=== PATIENT | female | born 1940 | race Caucasian/White ===

== ENCOUNTER 2020-07-13 13:06 | Day surgery (SDC) | payer OTHER ==
[2020-07-09 12:22] LABS: Protime INR 1.2
[2020-07-09 12:29] LABS: Absolute Lymphocytes (CBC) 1.3 K/uL (0.7-4.9); Basophils % 0.3 % (0-1.3); Hematocrit 40.6 % (36.0-45.0); Lymphocytes % 21.9 % (15.3-44.8); MPV 8.8 fL (7.6-11.3)
[2020-07-10 09:37] LABS: Urine Appearance CLOUDY (Clear); Urine Bilirubin NEGATIVE (Negataive); Urine Blood NEGATIVE (Negative); Urine Color YELLOW (Yellow); Urine Glucose NEGATIVE (Negative); Urine Protein NEGATIVE (Negative); Urine Specific Gravity <=1.005 (1.005-1.030); Urine Urobilinogen 0.2 mg/dL (0.2-1.0)
[2020-07-10 10:13] LABS: Urine Microscopic Reflex ORDER UMIC
[2020-07-10 10:39] LABS: Urine Bacteria >50 /HPF (<20); Urine RBC NONE SEEN /HPF (NONE SEEN)
[2020-07-13] MEDS ORDERED: SCOPOLAMINE HYDROBROMIDE PATCH TD ONE (13:31)
[2020-07-13] MEDS ORDERED: Ringers Lactate 1,000 ML IV ONE ×2 (13:31→15:52)
[2020-07-13] MEDS ORDERED: NA CHLORIDE 0.9% 1,000 ML ONE (13:33)
[2020-07-13] MEDS ORDERED: NA CHLORIDE 0.9% 100 ML IV ONE (13:33)
[2020-07-13] MEDS ORDERED: ROCURONIUM 50 MG/5 ML VIAL IV ONE (13:42)
[2020-07-13] MEDS ORDERED: propofoL 200 MG/20 ML VIAL IV ONE (13:42)
[2020-07-13] MEDS ORDERED: ONDANSETRON 4 MG/2 ML VIAL ONE (13:42)
[2020-07-13] MEDS ORDERED: FENTANYL CITR 100 MCG/2 ML ONE ×2 (13:42→16:28)
[2020-07-13] MEDS ORDERED: LIDOCAINE 2% MPF 5 ML VIAL ONE (13:42)
[2020-07-13] MEDS: CEFAZOLIN/SWI 2gm 2 GM/20 ML SYR ONE ×2 (13:56→13:58)
[2020-07-13] MEDS ORDERED: CEFAZOLIN SODIUM 1 GM/VIAL ONE (13:57)
[2020-07-13] MEDS: VASOPRESSIN 20 UNIT/ML VIAL ONE ×2 (13:59→14:45)
[2020-07-13] MEDS ORDERED: Levofloxacin500mg IV 500 MG/100 ML BAG IV ONE (14:02)
[2020-07-13] MEDS ORDERED: GLYCOPYRROLATE 0.2 MG/ML SYR ONE ×2 (16:39)
[2020-07-13] MEDS ORDERED: ACETAMINOPHEN 500 MG TAB PO PRN (16:41)
[2020-07-13] MEDS ORDERED: NEOSTIGMINE 1 MG/ML -5 ML ONE (16:41)
[2020-07-13] MEDS ORDERED: PROMETHAZINE 25 MG TABLET PO PRN (16:41)
[2020-07-13] MEDS ORDERED: MORPHINE 4 MG/ML SYR IV PRN (17:47)
[2020-07-13] MEDS: DRONEDARONE 400 MG TAB PO SCH (19:41)
[2020-07-14] MEDS: Ringers Lactate 1,000 ML IV SCH ×2 (01:00→08:23)
[2020-07-14 05:07] LABS: Potassium 3.9 mmol/L (3.5-5.1)
[2020-07-14] MEDS: DRONEDARONE 400 MG TAB PO SCH (08:21)
[2020-07-14] MEDS ORDERED: HEPARIN 5000 UNIT/ML 1 ML VIAL SQ SCH (09:00)
[2020-07-14] MEDS ORDERED: levoFLOXacin 500 MG TAB PO ONE (13:35)
[2020-07-14 14:57] VITALS: BP 122/56; TEMP 96.8; O2SAT 96
--- NOTE | 2020-07-24 23:55 | OP ---
Date of Procedure: 07/13/2020 Surgeon: Diane Goss MD Lab Rn: Yasmeen Mitchell and Harika Quintero. 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 Postoperative Diagnoses: Stage III anterior apical prolapse (incomplete uterovaginal prolapse, poste rior wall and perineal body defect), asymptomatic bacteriuria with extended spectrum beta-lactamase E scherichia coli. Stress urinary incontinence was not addressed. Procedures Performed: 1.[place] partial colpocleisis. 2.Perineal body repair. Anesthesia: General endotracheal. Specimens: None. Complications: None. Drains: None. Estimated Blood Loss: 50. Urine Output: 200. Condition: Stable. Indications: The patient is an 79-year-old with severe vaginal prolapse leading to bulge symptoms, i ncomplete bladder emptying, and recurrent urinary tract infections due to above. She was evaluated i n the office and counseled about the use of a pessary, surgical options including vaginal closure pro cedure, reconstruction, using a biologic graft or [place] tissue repair. The preoperative assessment in the office was indicative of mostly an anterior apical prolapse without a significant posterior wa ll prolapse, so we discussed about the feasibility of colpocleisis being low. However, if when patie nt is under anesthesia and exam was performed and she was found to have a significant posterior defec t that I could work with in order to perform a colpocleisis that I would, the patient had no future p lans of sexual activity or vaginal intercourse. She was consented for an anterior apical support pro cedure with a colpopexy, anterior repair with or without a biologic graft or partial flow colpocleisi s, perineorrhaphy, mid urethral sling and cystoscopy. At the preop urinary evaluation for an infecti on, she was found to have bacteriuria greater than 100,000 with ESBL E coli. However, the patient wa s asymptomatic. Her frequency and urgency were unchanged. Her pelvic pressure was also unchanged fr om her baseline. Considering this to be asymptomatic bacteriuria in a patient with incomplete emptyi ng, persistent bacteriuria was diagnosed and she was started on Levaquin. Discussed about the altern atives of cancelling the procedure for future date versus proceeding with the procedure and avoiding any instrumentation of the bladder, which included avoidance of a mid urethral sling and cystoscopy. If a colpopexy was performed unless it is imperative, would not perform a cysto, although this is ou tside of regular guidelines due to the patient's difficulty to empty her bladder and get rid of the b acteriuria. All the benefits and risks were explained to the patient in detail as well as her son, abby nd she fully understood all the implications of this and alternatives. She wanted to proceed with th e procedure and was amenable to having a staged procedure where the sling could be done later, so she was consented for prolapse repair without sling at this time and taken back to the OR. Levaquin was given. BMP was checked and plan was made to monitor her creatinine level and renal func tion in 3 days and [address] Hamilton, that is her primary care provider. She is also on Eliquis, the anticoagulant which she had stopped. So, this is a high-risk patient and has already been on the pathway for the surgery, so went ahead and proceeded with the procedure. Description Of Procedure: After informed consent was verified, she was taken back to the OR, placed in a supine fashion on the operating table. General anesthesia was given. She was placed in a dorsa l lithotomy position. Pelvic exam was performed. There was a distended posterior wall defect. Her POP-Q -1, +3, -1, 5, moderate, 7, 0, 0, and -2 after relaxation under anesthesia. So, this was POP-Q feasible where it was feasible to perform a colpocleisis, although there was asymmetrically larger a nterior defect. I tried to reach the son to allow him to understand the procedure we were proceeding with. However, it was unavailable when proceeded with the procedure. Lower abdomen, vulva, vagina, and perineum were prepped and draped in a sterile fashion. Del Rio was placed carefully without any u rinary contamination to drain the bladder during the procedure. Allis clamps placed on the cervix. Anterior vaginal wall was measured and marked for the colpocleisis from the anterior compartment in a trapezoid fashion. Once the posterior wall was also marked for the areas of vaginal epithelial exci netta, then injected dilute vasopressin and this area on the anterior wall first started at the distal anterior wall and vaginal epithelium was dissected away from the subepithelial connective tissue alessandro ping it as then as possible, leaving as much connective tissue or areolar tissue as possible. There was an anterior enterocele at the apex between the cervix and the bladder. This was reduced with the help of a 2-0 Vicryl suture in a pursestring fashion to shorten the anterior wall and to reduce the anterior enterocele. Once this was done, then the posterior vaginal wall was also injected with dilu te vasopressin and the trapezoid incision made with a scalpel and the vaginal epithelium excised from distal to proximal. Once this was all done, then I was left with the sidewall epithelium, which was left alone in order to create side channels. This was started at the apical transverse epithelial e dges bringing them together, creating a transverse channel with a 2-0 PDS in a continuous running fas hion Invaginating the epithelium, creating a channel. This closure was continued all the way on the right side to the distal end and once this was nicely done, then went onto the opposite side and cont inued to perform the same procedure all the way to the left distal end. Once this was created, then 2-0 Vicryl was used to shorten the anterior vaginal wall with imbricating sutures vertically, 3 rows of sutures were placed, then posteriorly 3 sutures were placed just interrupted sutures to bring it t ogether in a vertical fashion. Then, the anterior and posterior grubbs were closed together with 2-0 Vicryl sutures attached to each other all the way to the distal end. The distal transverse incision was closed with the help of 2-0 Vicryl interrupted sutures x4. Once this was done, there was good re duction, good side channel. The hemostat was passed to make sure that they were patent. I went ahead and left about 2 cm of the distal posterior wall. The perineal area was also injected w ith dilute vasopressin at the distal posterior wall. Then, a vertical incision was made through the perineal body going up and joining the incision of the colpocleisis. Then, epithelium and subepithel ium was dissected away from the underlying connective tissue and scar tissue. The lateral aspects of the perineal body, vestibule were all well dissected and exposed. Then, pliw-ay-uaia sutures were p laced from 1 levator ani to the other, that was the most proximal stitch on the perineum and then the distal sutures were placed, simple sutures with 2-0 Vicryl to bring the deep transverse perineum tog ether and then the remnants of the external sphincter. Once all the sutures were placed, there was a n excellent lift on the perineal body without tightening the opening, without creating extra tension on the levators. The vaginal epithelial incision and the perineal incision were closed with a 3-0 Vicryl in a continuo us running subcutaneous and subcuticular fashion and tied inside the vestibule. Rectal exam was perf ormed. No evidence of any sutures through the rectum. No evidence of any other bladder related comp lications. So, the catheter was left in place. The patient was recovered from anesthesia. Instrume nt, needle, and sponge counts were done and were correct at the end of the case. The patient was [place] en to the PACU in a stable condition. Her EBL was less than 50. Her hemodynamic status and cardiac status were stable during the entire procedure without any irregularities. Plan was to just remove h er catheter in the morning and give her a trial of voiding and allow her to leave without a catheter. Leave it on her Levaquin for the entire time of the prescription and then retest her and bring her back in 2 weeks to do a mid urethral sling. She was well counseled that she would have increased tangela kage after the reduction of her prolapse and sons was debriefed on her entire findings and the proced ures performed and the future plan. TRAVIS/KAT Voice ID: [id number] Report ID: [id number]
== END 2020-07-14 14:45 | disposition home or self-care (01) ==
LOC: OR 13:06 → 2ND-WC 16:59 → OR 07-14 14:45
PROVIDERS: ATTEND Obstetrics & Gynecology
PROC: 0HQ9XZZ Repair Perineum Skin, External Approach (ICD-10-PCS; 2020-07-13)
PROC: 0ULG7ZZ Occlusion of Vagina, Via Natural or Artificial Opening (ICD-10-PCS; principal; 2020-07-13 12:30)
DX: N81.2 Incomplete uterovaginal prolapse (principal); R35.0 Frequency of micturition; K40.30 Unilateral inguinal hernia, with obstruction, without gangrene, not specified as recurrent; K59.00 Constipation, unspecified; I48.91 Unspecified atrial fibrillation; N95.2 Postmenopausal atrophic vaginitis; N39.3 Stress incontinence (female) (male); R82.71 Bacteriuria; Z20.822 Contact with and (suspected) exposure to COVID-19
CPT/HCPCS: 57120; 56810; 87088; 85025; 87086; 80048 ×2; 36415 ×2; 86900; 86850; 85610; 86901; 85730; 87077; 87186; 94010; U0003; J2704; J3010 ×2; J2710; J0690; J7120 ×4; J7030; J2405; 81003; 81015; J1644

== ENCOUNTER 2020-07-27 07:28 | Day surgery (SDC) | payer OTHER ==
[2020-07-27] MEDS ORDERED: propofoL 200 MG/20 ML VIAL IV ONE (07:53)
[2020-07-27] MEDS ORDERED: FENTANYL CITR 100 MCG/2 ML ONE (07:53)
[2020-07-27] MEDS ORDERED: LIDOCAINE 1% MPF 5 ML VIAL ONE (07:54)
[2020-07-27] MEDS ORDERED: NA CHLORIDE 0.9% 50 ML ONE (08:03)
[2020-07-27] MEDS ORDERED: CEFAZOLIN/SWI 1gm 1 GM/10 ML SYR ONE ×2 (08:04→08:10)
[2020-07-27] MEDS ORDERED: VASOPRESSIN 20 UNIT/ML VIAL ONE (08:04)
[2020-07-27] MEDS ORDERED: Ringers Lactate 1,000 ML IV ONE ×2 (08:10→10:58)
[2020-07-27] MEDS ORDERED: EPHEDRINE SULF 50 MG/ML VIAL ONE (09:20)
[2020-07-27 09:21] LABS: Urine Appearance CLEAR (Clear); Urine Bilirubin NEGATIVE (Negataive); Urine Blood 1+ (Negative); Urine Color YELLOW (Yellow); Urine Glucose NEGATIVE (Negative); Urine Protein NEGATIVE (Negative); Urine Specific Gravity 1.015 (1.005-1.030); Urine Urobilinogen 0.2 mg/dL (0.2-1.0); Urine pH 5.5 (5.0-7.0)
[2020-07-27] MEDS ORDERED: dexAMETHasone 10 MG/ML VIAL ONE (09:28)
[2020-07-27] MEDS ORDERED: Levofloxacin 250mg IV 250 MG/50 ML BAG IV ONE (09:30)
[2020-07-27] MEDS ORDERED: ONDANSETRON 4 MG/2 ML VIAL ONE (09:30)
[2020-07-27 09:34] LABS: Urine Microscopic Reflex ORDER UMIC
[2020-07-27 09:35] LABS: Urine Bacteria >50 /HPF (<20)
[2020-07-27] MEDS ORDERED: MORPHINE 10 MG/ML VIAL ONE (10:10)
[2020-07-27 13:57] VITALS: BP 126/55; TEMP 98; O2SAT 95
--- NOTE | 2020-07-27 17:41 | EKG ---
Test Date: 2020-07-27 Test Time: 07:18:23 Art Framing Manager: KEVIN MEASUREMENT RESULTS: Intervals: Rate: 74 MA: 186 QRSD: 78 QT: 416 QTc: 461 [place]: P: 73 MA: 186 QRS: 62 T: 40 INTERPRETIVE STATEMENTS: Normal sinus rhythm Possible Left atrial enlargement Borderline ECG Compared to ECG 01/22/2016 18:59:03 Sinus tachycardia no longer present Electronically Signed On 07-27-20 17:40:06 CDT by Juve Dunham
--- NOTE | 2020-07-27 21:18 | OP ---
Date of Procedure: 07/27/2020 Surgeon: Diane Goss MD Clinical Care Manager: Harika Quintero. Preoperative Diagnosis: Stress urinary incontinence. Postoperative Diagnosis: Stress urinary incontinence. Procedure Performed: Mid urethral sling (TVT-O) and cystoscopy. Anesthesia: General with LMA. Specimens: No specimens. Drains: [place] catheter. Estimated Blood Loss: Less than 50. Complications: No complications. Condition: Stable. Findings: Vaginal closure done and the patient doing well. Her urinary infection has resolved and s he has been having significant stress incontinence since her surgery, so sling was to be placed. She was consented. Her urine sent off from the hospital to ensure that it is negative. After the patient has completed her antibiotics postoperatively from the last surgery and she is on j ust prophylactic antibiotic at this time. She was consented in the preop area. Again, her son was p resent. After discussing the procedure and the risks and benefits. She was consented and brought to the OR. She was placed in supine fashion on the operating table. General anesthesia was given thro ugh the laryngeal mask. The patient was placed in a dorsal lithotomy position. Valva, vagina and pe rineum prepped and draped in a sterile fashion. Del Rio placed to drain the bladder and carefully drai keily into sterile cup without any spillage. Bre clamp was placed to occlude the [place] and it was re tracted superiorly. The mid urethral area was picked up with 2 Allis clamps. The colpocleisis distal incision or closure was less than 0.5 cm from the distal margin of the incision to be made. Dilute vasopressin was injected 20 cc in the midline as well on the sides. Then, 1 cm incision made in the mid urethral area with a 15 blade. Skin, vaginal epithelium, subepithelial tissues were incis ed to the connective tissue. Once the connective tissue was incised, the scissors was placed underne ath at a 45-degree angle to the horizontal and vertical planes towards the ipsilateral shoulder, hugg ing the inferior pubic ramus. Obturators space was entered and opened up. The scissors were pulled out the extending the tract. Similar dissection was performed on the opposite side. There was sligh t vaginal epithelial tearing from the Allis clamp, but this was repaired and the track was created wi thout any problems. There was some bleeding from the right side obturators space then on the left si de, but once the occluder was placed at the inferior ramus, there was no further bleeding there. The kit was opened. The wing guide was placed through the right side into the obturator space. Carlos A w as passed and one the perforate the obturator membrane, the guide was removed. The spike was advance d along with the plastic sheath. The plastic sheath was grasped with Bre. Carlos A was removed. Mes h and the sheaths were pulled out through the left groin incision and held with a Bre and dilator c ut. On the opposite side, similar procedure was done. Once all these were placed without any proble ms, then, the plastic sheaths were used to adjust the tensioning. There was a Metzenbaum scissor venkat t was placed underneath the mid urethral area to maintain a proper tensioning. Once this was done to my satisfaction, the sheaths were pulled out without any displacement of the mesh. I made sure that there was no plowing effect and it was just sling in there without too much tension. Then, the mesh was irrigated with Ancef and the irrigating solution and closure was done with 0 Vicryl in a continu ous running locked fashion. The suture was tied and this was cut. The [place] was removed carefully w ithout any spillage and the 17-[place] sheath, 30-degree lens normal saline was used for cystoscopy. There was excellent jets of urine from both ureteric orifices. No evidence of any trauma to the blad jessica. Looking on the both lateral sides, there was no evidence of any foreign body or perforation. T he bladder was then drained. Scope was removed. Del Rio was replaced. The incisions in the groins we re closed with Dermabond. Instrument, needle, and sponge counts were correct at the end of the case. The patient tolerated the procedure well. She had no arrhythmia and no blood pressure issues durin g the case. She was taken to the PACU in stable condition. All instrument, needle, sponge counts co rrect. She will have a voiding trial today. Plan is to discharge her without a catheter if she pass es her voiding trial. TRAVIS/KAT Voice ID: [id number] Report ID: [id number]
== END 2020-07-27 13:10 | disposition home or self-care (01) ==
LOC: OR 07:28
PROVIDERS: ATTEND Obstetrics & Gynecology
PROC: 0TSD0ZZ Reposition Urethra, Open Approach (ICD-10-PCS; principal; 2020-07-27 08:30)
DX: N39.3 Stress incontinence (female) (male) (principal); Z20.822 Contact with and (suspected) exposure to COVID-19
CPT/HCPCS: 93005; 87088 ×2; 87086 ×2; 57288; U0003; J2704; J3010; J1100; J0690 ×2; J7120 ×2; J2405; 81003; 81015

== ENCOUNTER 2020-09-29 08:37 | Day surgery (SDC) | payer OTHER ==
[2020-09-28 15:08] LABS: Absolute Lymphocytes (CBC) 1.6 K/uL (0.7-4.9); Basophils % 0.7 % (0-1.3); Hematocrit 38.7 % (36.0-45.0); MPV 8.9 fL (7.6-11.3); RBC Red Blood Cell Count 4.38 M/uL (3.86-4.86)
--- NOTE | 2020-09-28 15:24 | RAD REPORT ---
EXAM DESCRIPTION: RAD - Chest Pa And Lat (2 Views) - 09/28/2020 3:05 pm CLINICAL HISTORY: preop COMPARISON: Chest Single View dated 01/22/2016; CHEST SINGLE VIEW dated 09/20/2013 FINDINGS: No evidence of edema or pneumonia. The heart size is within normal limits.No acute osseous abnormality. No significant pleural effusions or pneumothorax. Left subclavian approach defibrillato r. Emphysematous changes per atherosclerosis. IMPRESSION: No acute cardiopulmonary disease.
[2020-09-28 15:29] LABS: Potassium 4.1 mmol/L (3.5-5.1)
[2020-09-29] MEDS ORDERED: CEFAZOLIN/SWI 1gm 1 GM/10 ML SYR ONE (09:18)
[2020-09-29] MEDS ORDERED: Ringers Lactate 1,000 ML IV ONE (09:18)
[2020-09-29] MEDS ORDERED: CELECOXIB 100 MG CAPSULE ONE (10:43)
[2020-09-29] MEDS ORDERED: ACETAMINOPHEN 500 MG TAB ONE (10:43)
[2020-09-29] MEDS ORDERED: FENTANYL CITR 100 MCG/2 ML ONE ×2 (11:55→14:12)
[2020-09-29] MEDS ORDERED: propofoL 200 MG/20 ML VIAL IV ONE (11:55)
[2020-09-29] MEDS ORDERED: ROCURONIUM 50 MG/5 ML VIAL IV ONE (11:56)
[2020-09-29] MEDS ORDERED: LIDOCAINE 2% MPF 5 ML VIAL ONE (11:56)
[2020-09-29] MEDS ORDERED: ONDANSETRON 4 MG/2 ML VIAL ONE (11:56)
[2020-09-29] MEDS ORDERED: dexAMETHasone 10 MG/ML VIAL ONE (11:56)
[2020-09-29] MEDS ORDERED: NEOSTIGMINE 1 MG/ML -5 ML ONE (13:07)
[2020-09-29] MEDS ORDERED: GLYCOPYRROLATE 0.2 MG/ML SYR ONE (13:07)
[2020-09-29] MEDS ORDERED: KETOROLAC 30 MG/ML INJ ONE (13:16)
--- NOTE | 2020-09-29 13:30 | P.BOP ---
Preoperative diagnosis: Left inguinal hernia Postoperative diagnosis: same Primary procedure: Open repair of left inguinal hernia with mesh Estimated blood loss: <10cc Specimen: none Findings: LIH Anesthesia: General Implants: mesh plug and sheet. Transferred to: Recovery Room Condition: Good
[2020-09-29 15:02] VITALS: BP 155/62; TEMP 97.5; O2SAT 95
[2020-09-29] MEDS ORDERED: CODEINE 30MG/APAP 300MG TAB ONE (15:16)
--- NOTE | 2020-09-29 15:31 | DS ---
Diagnosis: Left inguinal hernia. Procedure: Open repair of left inguinal hernia with mesh. Disposition: Home. Activity: As tolerated. No heavy lifting. Plan: Follow up in my office in 1 week. Call for appointment at [phone]. Keep area dry for 48 shayla rs, then may shower. Cold compress to the inguinal region. GLORIA/KAT Voice ID: [id number] Report ID: [id number]
--- NOTE | 2020-09-29 15:31 | OP ---
Date of Procedure: 09/29/2020 Surgeon: Abrahan Carrillo MD Diagnosis: Tender left inguinal hernia. Procedure: Open repair of tender left inguinal hernia with mesh. Specimen: None. Findings: Left inguinal hernia. Anesthesia: General plus local. Implant: Mesh plug and sheath. Indication: This the case of a female, who comes to us with a left inguinal hernia giving pain and d iscomfort. In the past, she was able to reduce it more often and right now, sometimes getting incarc erated and so she wants that repaired. The benefits, alternatives, and risks of laparoscopic, possib le open repair of left inguinal hernia were fully explained, which include, but not limited to infect ion, bleeding, damage to adjacent structures, anesthesia complication, recurrence, WI, and even . She also understands this may not relieve any symptoms. She might need more than one surgical int ervention. She understood, signed a consent. Procedure In Detail: The patient was brought to the operating room, placed in supine position. Anes thesia was done without complication. Abdominal area was prepped and draped in usual sterile fashion . We tried laparoscopic first by making an incision in the infraumbilical region. The anterior rect us sheath was opened in direction of its fiber. Then, we put a trocar through it, but it does not fl ow the way we want to with the camera in. The area is not open in the way we want to and we proceede d to abandon that place because the area does not provide the proper expansion. We removed the troca r from that area, closed the area with #1 Vicryl, and approximated the skin. We made an incision in the left inguinal region. Incision was carried down to Sherrill fascia and then through the external o blique aponeurosis, opened in the direction of its fibers to connect the superficial inguinal ring. The ilioinguinal nerve and iliohypogastric nerve were protected behind the external oblique aponeuros is. We found the hernia sac. It was carefully opened, content reduced, suture ligated twice with a Prolene. After that, I placed a mesh plug in the deep inguinal ring securing that with VersaTack. T he mesh plug was placed in the floor of the canal securing that to the pubic tubercle, shelving edge of inguinal ligament and transversalis fascia. The area was irrigated. It looked nice and flat. At that moment, I proceeded to bring the ilioinguinal nerve and iliohypogastric nerve back into the ing uinal canal, reconstructed the superficial inguinal ring and closed the external oblique aponeurosis making sure the nerves were not included. The area was irrigated. Sherrill fascia was closed with 3-0 chromic and skin with jose. Sponge count and instrument counts correct. The patient tolerated t he procedure well. The patient was sent to recovery in stable condition. GLORIA/KAT Voice ID: [id number] Report ID: [id number]
== END 2020-09-29 15:32 | disposition home or self-care (01) ==
LOC: OR 08:37
PROVIDERS: ATTEND Surgery
PROC: 0YU60JZ Supplement Left Inguinal Region with Synthetic Substitute, Open Approach (ICD-10-PCS; principal; 2020-09-29 10:15)
DX: K40.90 Unilateral inguinal hernia, without obstruction or gangrene, not specified as recurrent (principal); I48.91 Unspecified atrial fibrillation
CPT/HCPCS: 49505; 85025; 80048; 36415; 88302; 71046; J2704; J3010 ×2; J1100; J2710; J0690; J7120; J2405

== ENCOUNTER 2020-11-18 14:50 | Emergency (ER) | payer OTHER ==
[2020-11-18 16:05] LABS: Protime INR 1.34
--- NOTE | 2020-11-18 16:06 | RAD REPORT ---
EXAM DESCRIPTION: RAD - Chest Single View - 11/18/2020 3:57 pm CLINICAL HISTORY: CHEST PAIN Chest pain. COMPARISON: Chest Pa And Lat (2 Views) dated 09/28/2020; Chest Single View dated 01/22/2016; CHEST SIN GLE VIEW dated 09/20/2013 FINDINGS: Portable technique limits examination quality. The lungs are grossly clear. The heart is normal in size. Single lead pacer/ defibrillator device is present. IMPRESSION: No acute intrathoracic process suspected.
[2020-11-18 16:07] LABS: Absolute Lymphocytes (CBC) 1.9 K/uL (0.7-4.9); Basophils % 0.5 % (0-1.3); Hematocrit 40.9 % (36.0-45.0); Lymphocytes % 21.7 % (15.3-44.8); MPV 8.3 fL (7.6-11.3); RBC Red Blood Cell Count 4.76 M/uL (3.86-4.86)
[2020-11-18 16:28] LABS: ALT/SGPT 29 U/L (12-78); AST/SGOT 23 U/L (15-37); Albumin 3.7 g/dL (3.4-5.0); Alkaline Phosphatase 88 U/L (45-117); BUN Blood Urea Nitrogen 13 mg/dL (7-18); Bicarbonate 23 mmol/L (21-32); Bilirubin Direct 0.2 mg/dL (0-0.2); Bilirubin Total 0.6 mg/dL (0.2-1.0); Glucose Level 111 mg/dL (74-106); NT PRO-BNP 588 pg/mL (<450); Potassium 3.4 mmol/L (3.5-5.1); Protein, Total 7.4 g/dL (6.4-8.2); Sodium Level 131 mmol/L (136-145); Troponin (Emerg Dept Use Only) < 0.02 ng/mL (0.0-0.045)
[2020-11-18] MEDS ORDERED: ONDANSETRON 4 MG/2 ML VIAL ONE (16:54)
[2020-11-18] MEDS ORDERED: ASPIRIN 81 MG CHEWABLE TABLET ONE (16:54)
[2020-11-18] MEDS ORDERED: NA CHLORIDE 0.9% 500 ML ONE (16:54)
[2020-11-18 18:42] LABS: Urine Blood Negative (Negative); Urine Glucose Negative (Negative); Urine Protein Negative (Negative); Urine Specific Gravity 1.015 (1.005-1.030); Urine pH 7.5 (5.0-7.0)
--- NOTE | 2020-11-18 18:54 | ER ---
Nurse's Notes [facility] [place] Name: Nereida Bhandari Age: 80 yrs Sex: Female : 1940 Arrival Date: 11/18/2020 Time: 14:51 Bed 14 Private MD: Diagnosis: Vomiting;Diarrhea, unspecified Presentation: 11/18 15:29 Chief complaint: Patient states: Chest pain, nausea, vomiting, diarrhea starting at kg 0900. Coronavirus screen: Vaccine status: Patient reports receiving the 2nd dose of the covid vaccine. Date July 20, 2020 Moderna Patient reports receiving the 1st dose of the Covid vaccine. Date June 24, 2020 Moderna diarrhea, nausea, vomiting. Client presents with at least one sign or symptom that may indicate coronavirus-19. Standard/surgical mask placed on the client. Provider contacted for isolation considerations. Ebola Screen: Patient negative for fever greater than or equal to 101.5 degrees Fahrenheit, and additional compatible Ebola Virus Disease symptoms Patient denies exposure to infectious person. Patient denies travel to an Ebola-affected area in the 21 days before illness onset. Initial Sepsis Screen: Does the patient meet any 2 criteria? No. Patient's initial sepsis screen is negative. Does the patient have a suspected source of infection? No. Patient's initial sepsis screen is negative. Risk Assessment: Do you want to hurt yourself or someone else? Patient reports no desire to harm self or others. Onset of symptoms was November 18, 2020 at 09:00. 15:29 Method Of Arrival: Wheelchair kg 15:29 Acuity: JESSE 3 kg Triage Assessment: 19:45 Pain: Denies pain. bs2 21:57 General: Appears in no apparent distress. comfortable, slender, Behavior is calm, bs2 cooperative, appropriate for age. Historical: - Allergies: 15:32 No Known Allergies; kg - Home Meds: 15:32 Multaq 400 mg oral tab 1 tab 2 times per day [Active]; Eliquis 5 mg oral tab 1 tab 2 kg times per day [Active]; Myrbetriq 50 mg oral Tb24 1 tab once daily [Active]; acetaminophen 325 mg Oral tab 1 tab every 4-6 hours [Active]; Vitamin C 500 mg Oral chew 500 mg daily [Active]; artificial tears(hypromellose) 1 % Opht drop daily [Active]; - PMHx: 15:32 Atrial fibrillation; kg - PSHx: 15:32 Hernia Repair; kg - Immunization history:: Adult Immunizations up to date, Client reports receiving the 2nd dose of the Covid vaccine, Date received: July 20, 2020 Client reports receiving the 1st dose of the Covid vaccine, June 24, 2020. - Social history:: Smoking status: Patient denies any tobacco usage or history of. Screenin:56 Abuse screen: Denies threats or abuse. Denies injuries from another. Nutritional ch5 screening: No deficits noted. Tuberculosis screening: No symptoms or risk factors identified. Fall Risk None identified. Assessment: 15:56 Reassessment: Complaint of CP that gradually got worse. Pain is 8-10.. Pain: Pain ch5 radiates to chest. Pain: Pain currently is 118 out of 10 on a pain scale. Pain began gradually. Cardiovascular: Reports chest pain. Vital Signs: 15:29 BP 130 / 75; Pulse 81; Resp 21; Temp 98.0(O); Pulse Ox 100% on R/A; Weight 54.43 kg; kg Height 5 ft. 7 in. (170.18 cm); Pain 8/10; 16:15 BP 160 / 76; Pulse 28; Resp 26; Pulse Ox 100% on R/A; Pain 8/10; ch5 21:40 BP 160 / 81 LA Sitting (auto/reg); Pulse 90 MON; Resp 18 S; Temp 98.6(O); Pulse Ox 97% bs2 on R/A; Pain 0/10; 15:29 Body Mass Index 18.79 (54.43 kg, 170.18 cm) kg ED Course: 14:51 Patient arrived in ED. rg4 15:32 Triage completed. kg 15:33 Bolivar Jeffers PA is PHCP. jmm 15:33 Stefan Florez MD is Attending Physician. jmm 15:39 Garth Fermin, RAYMUNDO is Primary Nurse. ch5 15:53 Basic Metabolic Panel Sent. ch5 15:56 No provider procedures requiring assistance completed. Inserted saline lock: 20 gauge ch5 in right forearm, using aseptic technique. Patient maintains SpO2 saturation greater than 95% on room air. 15:56 Patient has correct armband on for positive identification. Placed in gown. Bed in low ch5 position. Side rails up X2. site monitor on. 15:57 XRAY Chest (1 view) In Process Unspecified. EDMS 18:53 Jesse Smalls DO is Hospitalizing Provider. jmm 19:45 Arm band placed on right wrist. bs2 21:45 IV discontinued, intact, bleeding controlled, No redness/swelling at site. Pressure bs2 dressing applied. Administered Medications: 16:34 Drug: Aspirin Chewable Tablet 324 mg Route: PO; ch5 19:49 Follow up: Response: No adverse reaction bs2 16:35 Drug: NS 0.9% 500 ml Route: IV; Rate: bolus; Site: right antecubital; ch5 19:48 Follow up: IV Status: Completed infusion bs2 19:49 Follow up: IV Status: Completed infusion bs2 16:35 Drug: Zofran (Ondansetron) 4 mg Route: IVP; Site: right antecubital; ch5 19:49 Follow up: Response: No adverse reaction bs2 Outcome: 18:54 Decision to Hospitalize by Provider. jmm 21:04 Discharge ordered by . [facility] 21:59 Discharged to home ambulatory, with family. bs2 21:59 Condition: improved 21:59 Discharge instructions given to patient, family, Instructed on discharge instructions, follow up and referral plans. Demonstrated understanding of instructions, follow-up care, medications, Prescriptions given X 1. 22:00 Patient left the ED. bs2 Signatures: Dispatcher [employer] EDMS Bolivar Jeffers PA PA jmm Garcia, Rubi rg4 Fatoumata Bejarano, Geovanna Oglesby RN, kg, RN RN bs2 Garth Fermin, RAYMUNDO RN ch5
--- NOTE | 2020-11-18 18:55 | EDPHYS ---
Physician Documentation [facility] Name: Nereida Bhandari Age: 80 yrs Sex: Female : 1940 Arrival Date: 11/18/2020 Time: 14:51 Bed 14 Private MD: NICOLE Physician Stefan Florez HPI: 11/18 15:33 This 80 yrs old Female presents to ER via Wheelchair with complaints of Chest jmm Pain. 15:33 The patient presents to the emergency department with nausea, vomiting. Onset: The jmm symptoms/episode began/occurred today. Possible causes: unknown. The symptoms are aggravated by nothing. The symptoms are alleviated by nothing. Associated signs and symptoms: Pertinent positives: chest pain. The patient has not experienced similar symptoms in the past. Historical: - Allergies: 15:32 No Known Allergies; kg - Home Meds: 15:32 Multaq 400 mg oral tab 1 tab 2 times per day [Active]; Eliquis 5 mg oral tab 1 tab 2 kg times per day [Active]; Myrbetriq 50 mg oral Tb24 1 tab once daily [Active]; acetaminophen 325 mg Oral tab 1 tab every 4-6 hours [Active]; Vitamin C 500 mg Oral chew 500 mg daily [Active]; artificial tears(hypromellose) 1 % Opht drop daily [Active]; - PMHx: 15:32 Atrial fibrillation; kg - PSHx: 15:32 Hernia Repair; kg - Immunization history:: Adult Immunizations up to date, Client reports receiving the 2nd dose of the Covid vaccine, Date received: July 20, 2020 [facility] Client reports receiving the 1st dose of the Covid vaccine, June 24, 2020 [facility]. - Social history:: Smoking status: Patient denies any tobacco usage or history of. ROS: 18:51 Constitutional: Negative for fever, chills, and weight loss, Respiratory: Negative for jmm shortness of breath, cough, wheezing, and pleuritic chest pain. 18:51 Cardiovascular: Positive for chest pain. 18:51 Abdomen/GI: Positive for abdominal pain, vomiting, diarrhea. 18:51 All other systems are negative. Exam: 18:51 Constitutional: This is a well developed, well nourished patient who is awake, alert, jmm and in no acute distress. Head/Face: atraumatic. Eyes: EOMI, no conjunctival erythema appreciated ENT: Moist Mucus Membranes Neck: Trachea midline, Supple Chest/axilla: Normal chest wall appearance and motion. Cardiovascular: Regular rate and rhythm. No edema appreciated Respiratory: Normal respirations, no respiratory distress appreciated Abdomen/GI: Non distended, soft Back: Normal ROM Skin: General appearance color normal MS/ Extremity: Moves all extremities, no obvious deformities appreciated, no edema noted to the lower extremities Neuro: Awake and alert, normal gait Psych: Behavior is normal, Mood is normal, Patient is cooperative and pleasant Vital Signs: 15:29 BP 130 / 75; Pulse 81; Resp 21; Temp 98.0(O); Pulse Ox 100% on R/A; Weight 54.43 kg; kg Height 5 ft. 7 in. (170.18 cm); Pain 8/10; 16:15 BP 160 / 76; Pulse 28; Resp 26; Pulse Ox 100% on R/A; Pain 8/10; ch5 21:40 BP 160 / 81 LA Sitting (auto/reg); Pulse 90 MON; Resp 18 S; Temp 98.6(O); Pulse Ox 97% bs2 on R/A; Pain 0/10; 15:29 Body Mass Index 18.79 (54.43 kg, 170.18 cm) kg [facility]: 15:44 Patient medically screened. [facility] 15:45 Patient medically screened. [facility] 18:53 Data reviewed: vital signs, nurses notes. Counseling: I had a detailed discussion with festus the patient and/or guardian regarding: the historical points, exam findings, and any diagnostic results supporting the discharge/admit diagnosis, lab results, radiology results, the need for further work-up and treatment in the hospital. ED course: The patient with Johann Varner whom accepted the patient to Dr. Smalls service.. 21:03 ED course: Johann Varner examined the patient does not feel this is a cardiac process. The [facility] patient would prefer to go home. Patient is otherwise given strict return precautions. Patient understood agrees plan of care.. 11/18 15:33 Order name: Basic Metabolic Panel [facility] 11/18 15:33 Order name: CBC with Diff; Complete Time: 16:19 [facility] 11/18 15:33 Order name: LFT's; Complete Time: 16:29 [facility] 11/18 15:33 Order name: Magnesium; Complete Time: 16:29 [facility] 11/18 15:33 Order name: NT PRO-BNP; Complete Time: 16:29 [facility] 11/18 15:33 Order name: PT-INR; Complete Time: 16:07 [facility] 11/18 15:33 Order name: Troponin (emerg Dept Use Only); Complete Time: 16:29 [facility] 11/18 15:33 Order name: XRAY Chest (1 view); Complete Time: 16:07 [facility] 11/18 15:34 Order name: Basic Metabolic Panel; Complete Time: 16:29 [facility] 11/18 18:42 Order name: Urine Dipstick-Ancillary; Complete Time: 18:45 [facility] 11/18 18:56 Order name: Troponin (Emerg Dept Use Only); Complete Time: 21:03 [facility] 11/18 19:54 Order name: SARS-COV-2 RT PCR; Complete Time: 19:57 [facility] 11/18 15:33 Order name: EKG; Complete Time: 15:34 [facility] 11/18 15:33 Order name: Cardiac monitoring; Complete Time: 15:53 [facility] 11/18 15:33 Order name: EKG - Nurse/Tech; Complete Time: 15:54 [facility] 11/18 15:33 Order name: IV Saline Lock; Complete Time: 15:53 [facility] 11/18 15:33 Order name: Labs collected and sent; Complete Time: 15:53 [facility] 11/18 15:33 Order name: O2 Per Protocol; Complete Time: 15:53 [facility] 11/18 15:33 Order name: O2 Sat Monitoring; Complete Time: 15:53 [facility] 11/18 15:56 Order name: Urine Dipstick-Ancillary (obtain specimen); Complete Time: 19:49 [facility] 11/18 18:55 Order name: PO challenge; Complete Time: 21:57 jm Administered Medications: 16:34 Drug: Aspirin Chewable Tablet 324 mg Route: PO; ch5 19:49 Follow up: Response: No adverse reaction bs2 16:35 Drug: NS 0.9% 500 ml Route: IV; Rate: bolus; Site: right antecubital; ch5 19:48 Follow up: IV Status: Completed infusion bs2 19:49 Follow up: IV Status: Completed infusion bs2 16:35 Drug: Zofran (Ondansetron) 4 mg Route: IVP; Site: right antecubital; ch5 19:49 Follow up: Response: No adverse reaction bs2 Disposition: 11/19 08:21 Co-signature as Attending Physician, Stefan Florez MD I agree with the assessment and [facility] plan of care. Disposition Summary: 11/18/20 21:04 Discharge Ordered Location: Home(11/18/20 21:04) [facility] Condition: Stable(11/18/20 21:04) jm Diagnosis - Vomiting jmm - Diarrhea, unspecified jm Followup: jm - With: Private Physician - When: 2 - 3 days - Reason: Recheck today's complaints, Continuance of care, Re-evaluation by your physician Discharge Instructions: - Discharge Summary Sheet jm - Food Choices to Help Relieve Diarrhea, Adult jmm - Vomiting, Adult jmm Forms: - Medication Reconciliation Form [facility] - Thank You Letter jmm - Antibiotic Education jmm - Prescription Opioid Use jm Prescriptions: - ondansetron 4 mg Oral tablet,disintegrating - take 1 tablet by ORAL route every 4-6 hours for 2 days; 20 tablet; Refills: 0, jm Product Selection Permitted Signatures: Dispatcher [employer] EDMS Stefan Florez MD MD cha Mickail, Joel, PA PA [facility] Johann Varner, SHELTERED WORKSHOP EXECUTIVE DIRECTOR-C SHELTERED WORKSHOP EXECUTIVE DIRECTOR-Cla1 Fatoumata Bejarano, RN RN kg Garth Fermin, RAYMUNDO RN ch5 Geovanna Doan RN bs2 Corrections: (The following items were deleted from the chart) 11/18 18:51 15:57 CORONAVIRUS+MR.LAB.BRZ ordered. EDMS EDMS 18:56 18:54 Observation [facility] 18:56 18:54 PrezasJesse [facility] 18:56 18:54 Telemetry/MedSurg (observation) [facility] 18:56 18:54 Stable [facility] 18:56 18:54 new [facility] 18:56 18:54 are unchanged [facility] 18:56 18:54 Standard [facility] 18:56 18:54 [facility] 18:56 18:54 Chest pain, unspecified [facility] 19:52 18:56 TROPONIN (EMERG DEPT USE ONLY)+C.LAB.BRZ ordered. EDMS EDMS
[2020-11-18 22:12] VITALS: TEMP 98; O2SAT 100
[2020-11-18 22:13] VITALS: BP 160/76
--- NOTE | 2020-11-19 07:43 | EKG ---
Test Date: 2020-11-18 Test Time: 15:28:38 Costumed Character: DONNA MEASUREMENT RESULTS: Intervals: Rate: 77 ID: [id number] QRSD: 78 QT: 444 QTc: 502 [place]: P: 82 ID: [id number] QRS: 82 T: 77 INTERPRETIVE STATEMENTS: Normal sinus rhythm Possible Left atrial enlargement Prolonged QT Abnormal ECG Compared to ECG 07/27/2020 07:18:23 Prolonged QT interval now present Electronically Signed On 11-19-20 07:41:54 CDT by Juve Dunham
== END 2020-11-18 22:00 | disposition home or self-care (01) ==
LOC: ER 14:50
DX: R19.7 Diarrhea, unspecified (principal); R07.9 Chest pain, unspecified; I48.91 Unspecified atrial fibrillation; Z79.01 Long term (current) use of anticoagulants; Z20.822 Contact with and (suspected) exposure to COVID-19
CPT/HCPCS: 96361; 93005; 85025; 80048; 36415; 83735; 85610; 80076; 81003; 84484 ×2; 83880; 71045; 96374; 99285; U0003; J7040; J2405

== ENCOUNTER 2021-06-15 09:56 | Observation (INO) | payer OTHER ==
--- OUTSIDE RECORDS SUMMARY | 2021-06-15 09:59 | XMS REPORT | Continuity of Care Document ---
:1940 Author Organization [facility] t Address [address] [place] [address] Care Team Providers Name Role Phone Franchesca-Mbayo_A_AH Attending Clinician Unavailable Franchesca-Mbayo_A_AH Admitting Clinician Unavailable Payers Payer Name Policy Type Policy Number Effective Date Expiration Date [facility] [place] - [id number] 2019 [employer] 00:00:00 (MEDICARE REPLACEMENT/ADVANT AGE - HMO) Problems This patient has no known problems. Allergies, Adverse Reactions, Alerts This patient has no known allergies or adverse reactions. Medications This patient has no known medications. Procedures This patient has no known procedures. Encounters Start End Encounter Admission Attending Care Care Encounter Source Date/Time Date/Time Type Type Clinicians Facility Department ID 2019-05-29 2019-05-29 Outpatient Franchesca-Mbayo [facility] [id number] 02:20:00 02:20:00 _A_AH [id number] Family Practic e 2019-05-29 2019-05-29 Outpatient Franchesca-Mbayo [facility] [id number] 02:20:00 02:20:00 _A_AH [id number] Family Practic e 2019-05-29 2019-05-29 Outpatient Franchesca-Mbayo [facility] [id number] 02:20:00 02:20:00 _A_AH [id number] Family Practic e 2019-05-07 2019-05-07 Outpatient Franchesca-Mbayo [facility] [id number] 07:15:00 07:15:00 _A_AH [id number] Family Practic e Results This patient has no known results.
[2021-06-15] MEDS ORDERED: dilTIAZem HCL 25 MG/5 ML VIAL IV ONE (10:22)
[2021-06-15 10:32] LABS: Absolute Lymphocytes (CBC) 1.4 K/uL (0.7-4.9); Hematocrit 39.6 % (36.0-45.0); Lymphocytes % 30.7 % (15.3-44.8); MPV 8.9 fL (7.6-11.3)
[2021-06-15 10:43] LABS: Potassium 3.9 mmol/L (3.5-5.1); Troponin High Sensitivity 54.1 pg/mL (<58.9)
[2021-06-15] MEDS ORDERED: AMIODARONE IN DEXTROSE,ISO-OSM 360 MG/200 ML BAG IV ONE ×2 (10:57→16:27)
--- NOTE | 2021-06-15 10:59 | ER ---
Nurse's Notes [facility] Name: Nereida Bhandari Age: 80 yrs Sex: Female : 1940 Arrival Date: 06/15/2021 Time: 09:56 Bed 6 Private MD: Diagnosis: Unspecified atrial flutter;Shortness of breath;Chest pain, unspecified Presentation: 06/15 09:56 Chief complaint: EMS states: "pt reporting chest pain and shortness of breath this AM. jd3 pt with history of a-fib. initial rhythm was A-fib RVR. ASA 324 mg and 10 mg Cardizem given. 20 G right forearm started. pt reported that she was feeling better as we pulled in. pt's rhythm appears to have converted to sinus tach as well.". Coronavirus screen: At this time, the client does not indicate any symptoms associated with coronavirus-19. Ebola Screen: No symptoms or risks identified at this time. Initial Sepsis Screen: Does the patient meet any 2 criteria? No. Patient's initial sepsis screen is negative. Does the patient have a suspected source of infection? No. Patient's initial sepsis screen is negative. Risk Assessment: Do you want to hurt yourself or someone else? Patient reports no desire to harm self or others. Onset of symptoms was June 15, 2021. 09:56 Method Of Arrival: EMS: [facility] jd3 09:56 Acuity: JESSE 2 jd3 Historical: - Allergies: 09:59 No Known Allergies; jd3 - Home Meds: 09:59 Eliquis 5 mg Oral tab 1 tab 2 times per day [Active]; Multaq 400 mg Oral tab 1 tab 2 jd3 times per day [Active]; artificial tears(hypromellose) 1 % Opht drop daily [Active]; atorvastatin oral [Active]; 11:09 pantoprazole 40 mg oral grps [Active]; jd3 11:10 Sucralfate Oral [Active]; jd3 - PMHx: 09:59 Atrial fibrillation; jd3 - PSHx: 09:59 hernia repair; jd3 - Immunization history:: Adult Immunizations up to date, Client reports receiving the 2nd dose of the Covid vaccine, Flu vaccine is up to date. - Social history:: Smoking status: Patient denies any tobacco usage or history of. Screenin:05 Abuse screen: Denies threats or abuse. Nutritional screening: No deficits noted. jd3 Tuberculosis screening: No symptoms or risk factors identified. Fall Risk Ambulatory Aid- None/Bed Rest/Nurse Assist (0 pts). Gait- Normal/Bed Rest/Wheelchair (0 pts) Mental Status- Oriented to own ability (0 pts). Total Martinez Fall Scale indicates No Risk (0-24 pts). Assessment: 10:04 General: Appears uncomfortable, Behavior is calm, cooperative, appropriate for age. jd3 Pain: Complains of pain in chest Quality of pain is described as pressure. Neuro: Level of Consciousness is awake, alert, confused, Oriented to person, place, time, situation. Cardiovascular: Heart tones present Capillary refill < 3 seconds Patient's skin is warm and dry. Rhythm is irregular. Respiratory: Reports shortness of breath at rest Airway is patent Respiratory effort is even, unlabored, Respiratory pattern is regular, symmetrical, Breath sounds are clear bilaterally. Denies cough. GI: No signs and/or symptoms were reported involving the gastrointestinal system. Patient currently denies diarrhea, nausea, vomiting. : No signs and/or symptoms were reported regarding the genitourinary system. EENT: No signs and/or symptoms were reported regarding the EENT system. Derm: Skin is intact, Skin is dry, Skin is pale, Skin temperature is warm. Musculoskeletal: Circulation, motion, and sensation intact. Range of motion: intact in all extremities. 11:32 Reassessment: Patient appears in no apparent distress at this time. Patient and/or jd3 family updated on plan of care and expected duration. Pain level reassessed. Patient is alert, oriented x 3, equal unlabored respirations, skin warm/dry/pink. Patient states feeling better. 12:23 Reassessment: Patient and/or family updated on plan of care and expected duration. Pain jd3 level reassessed. Patient is alert, oriented x 3, equal unlabored respirations, skin warm/dry/pink. Johann Bhandari (daughter in-law) [phone]. call with update or if anything changes. awaiting admission. Vital Signs: 09:58 BP 147 / 95; Pulse 129; Resp 25 S; Temp 98.4(TE); Pulse Ox 99% on R/A; Weight 56.25 kg jd3 (R); Height 5 ft. 7 in. (170.18 cm) (R); Pain 2/10; 10:25 BP 119 / 71; Pulse 119; Resp 22 S; Pulse Ox 95% on R/A; jd3 11:33 BP 93 / 58; Pulse 131; Resp 21 S; Pulse Ox 96% on R/A; jd3 12:24 BP 114 / 79; Pulse 126; Resp 20 S; Pulse Ox 98% on R/A; jd3 21:03 BP 127 / 62; Pulse 73; Resp 20; Pulse Ox 99% on R/A; st1 09:58 Body Mass Index 19.42 (56.25 kg, 170.18 cm) jd3 ED Course: 09:56 Patient arrived in ED. jd3 09:58 Robbie Fabian DO is Attending Physician. ms3 09:58 Triage completed. jd3 09:59 Arm band placed on. jd3 10:04 Jason Cummins RN is Primary Nurse. jd3 10:06 Patient has correct armband on for positive identification. Placed in gown. Bed in low jd3 position. Call light in reach. Side rails up X2. Adult w/ patient. chemical plant manager on. Pulse ox on. NIBP on. 10:57 Ruben Martinez MD is Hospitalizing Provider. ms3 11:10 XRAY Chest (1 view) In Process Unspecified. EDMS 12:00 Maintain EMS IV. Dressing intact. Good blood return noted. Site clean \\T\\ dry. Gauge \\T\\ nigel 3 site: 20 G to the right forearm. 13:34 No provider procedures requiring assistance completed. Patient admitted, IV remains in jd3 place. 19:41 Primary Nurse role handed off by Jason Cummins, RAYMUNDO mw2 21:03 report called to RAYMUNDO Florez. st1 Administered Medications: 10:24 Drug: Cardizem (diltiazem) 20 mg Route: IVP; Site: right forearm; jd3 11:07 Follow up: Response: No adverse reaction jd3 11:07 Drug: amiodarone 900 mg, D5W 500 ml Route: IVPB; Rate: 1 mg/min; Site: right forearm; jd3 11:42 Follow up: Response: No adverse reaction; IV Status: Infusion continued upon admission jd3 Outcome: 10:58 Decision to Hospitalize by Provider. ms3 13:34 Admitted to ER Hold. Please see [facility] for further documentation. jd3 13:34 Condition: stable 13:34 Instructed on the need for admit, Demonstrated understanding of instructions. 21:45 Patient left the ED. as6 Signatures: Dispatcher [employer] EDMS Jason Cummins, RN RN jd3 Ian Flores mw2 Robbie Fabian, DO ms3 Misael Sarmiento RN RN as6 Prisca Anaya, RN RN st1
--- NOTE | 2021-06-15 10:59 | EDPHYS ---
Physician Documentation [facility] Name: Nereida Bhandari Age: 80 yrs Sex: Female : 1940 Arrival Date: 06/15/2021 Time: 09:56 Bed 6 Private MD: ED Physician Robbie Fabian HPI: 06/15 10:08 This 80 yrs old Female presents to ER via EMS with complaints of shortness of breath. ms3 10:08 The patient has shortness of breath at rest. Onset: The symptoms/episode began/occurred ms3 acutely, 2 hour(s) ago. Duration: The symptoms are continuous. The patient's shortness of breath has no apparent modifying factors. Associated signs and symptoms: Pertinent positives: chest pain, Pertinent negatives: chest pain, non-productive cough, diaphoresis, vomiting. Associated signs and symptoms:. 80-year-old female presents via EMS for shortness of breath that began at 8 AM. EMS states they gave patient 10 mg Cardizem over 10 minutes. 324 mg aspirin was also administered. Patient states her [place] began at 8 AM. Patient rates her shortness of breath a 2/10 and states it is hard to breathe. Patient denies alleviating or inciting factors. Patient endorses chest pain. Patient denies nausea or vomiting.. Historical: - Allergies: 09:59 No Known Allergies; jd3 - Home Meds: 09:59 Eliquis 5 mg Oral tab 1 tab 2 times per day [Active]; Multaq 400 mg Oral tab 1 tab 2 jd3 times per day [Active]; artificial tears(hypromellose) 1 % Opht drop daily [Active]; atorvastatin oral [Active]; 11:09 pantoprazole 40 mg oral grps [Active]; jd3 11:10 Sucralfate Oral [Active]; jd3 - PMHx: 09:59 Atrial fibrillation; jd3 - PSHx: 09:59 hernia repair; jd3 - Immunization history:: Adult Immunizations up to date, Client reports receiving the 2nd dose of the Covid vaccine, Flu vaccine is up to date. - Social history:: Smoking status: Patient denies any tobacco usage or history of. ROS: 10:08 Constitutional: Negative for fever, and chills. ENT: Negative for injury, pain, and ms3 discharge, Neck: Negative for injury, pain, and swelling, Abdomen/GI: Negative for abdominal pain, nausea, vomiting, diarrhea, and constipation, MS/Extremity: Negative for injury and deformity, Skin: Negative for injury, rash, and discoloration. 10:08 All other systems are negative. Exam: 10:08 Constitutional: This is a well developed, well nourished patient who is awake, alert, ms3 and in no acute distress. Head/Face: Normocephalic, atraumatic. Neck: Trachea midline, no cervical lymphadenopathy. Supple, full range of motion without nuchal rigidity, or vertebral point tenderness. No Meningismus. Chest/axilla: Normal chest wall appearance and motion. Nontender with no deformity. 10:08 Respiratory: Lungs have equal breath sounds bilaterally, clear to auscultation and percussion. No rales, rhonchi or wheezes noted. No increased work of breathing, no retractions or nasal flaring. Abdomen/GI: Soft, non-tender, with normal bowel sounds. No distension or tympany. No guarding or rebound. No evidence of tenderness throughout. Skin: Warm, dry with normal turgor. Normal color with no rashes, no lesions, and no evidence of cellulitis. Psych: Awake, alert, with orientation to person, place and time. Behavior, mood, and affect are within normal limits. 10:08 Cardiovascular: Rate: tachycardic, Rhythm: regular, Heart sounds: normal. 10:08 ECG was reviewed by the Attending Physician. Vital Signs: 09:58 BP 147 / 95; Pulse 129; Resp 25 S; Temp 98.4(TE); Pulse Ox 99% on R/A; Weight 56.25 kg jd3 (R); Height 5 ft. 7 in. (170.18 cm) (R); Pain 2/10; 10:25 BP 119 / 71; Pulse 119; Resp 22 S; Pulse Ox 95% on R/A; jd3 11:33 BP 93 / 58; Pulse 131; Resp 21 S; Pulse Ox 96% on R/A; jd3 12:24 BP 114 / 79; Pulse 126; Resp 20 S; Pulse Ox 98% on R/A; jd3 21:03 BP 127 / 62; Pulse 73; Resp 20; Pulse Ox 99% on R/A; st1 09:58 Body Mass Index 19.42 (56.25 kg, 170.18 cm) jd3 MDM: 10:06 Patient medically screened. ms3 10:47 Data reviewed: vital signs, nurses notes, lab test result(s), EKG, radiologic studies. ms3 Data interpreted: monitoring analyst: rate is 135 beats/min, rhythm is atrial flutter, Interpretation: Atrial flutter. Counseling: I had a detailed discussion with the patient and/or guardian regarding: the historical points, exam findings, and any diagnostic results supporting the discharge/admit diagnosis, lab results, radiology results, the need for further work-up and treatment in the hospital. Physician consultation: Juve Dunham MD was contacted at 10:50, regarding consult, patient's condition, and will see patient Agrees with starting Amiodarone ggt.. 10:56 Differential diagnosis: A fib with RVR vs Atrial flutter vs ACS. ED course: Discussed ms3 case with Dr Martinez and he accepts patient as admission. All questions answered. Patient remains in atrial flutter.. 06/15 10:07 Order name: Basic Metabolic Panel; Complete Time: 10:52 ms3 06/15 10:07 Order name: CBC with Diff; Complete Time: 10:52 ms3 06/15 10:07 Order name: Troponin HS; Complete Time: 10:52 ms3 06/15 10:33 Order name: COVID-19 SARS RT PCR (Document "Date of Onset" if Symptomatic) ms3 06/15 12:25 Order name: T4 Free EDMS 06/15 12:25 Order name: Thyroid Stimulating Hormone EDMS 06/15 10:07 Order name: XRAY Chest (1 view); Complete Time: 11:37 ms3 06/15 12:25 Order name: CBC with Automated Diff EDMS 06/15 12:25 Order name: CBC with Automated Diff EDMS 06/15 12:25 Order name: Comprehensive Metabolic Panel EDMS 06/15 12:25 Order name: Comprehensive Metabolic Panel EDMS 06/15 12:25 Order name: Magnesium EDMS 06/15 12:25 Order name: Magnesium EDMS 06/15 10:07 Order name: EKG; Complete Time: 10:08 ms3 06/15 10:07 Order name: Cardiac monitoring; Complete Time: 10:16 ms3 03/30 10:07 Order name: EKG - Nurse/Tech; Complete Time: 10:16 ms3 06/15 10:07 Order name: IV Saline Lock; Complete Time: 10:16 ms3 06/15 10:07 Order name: Labs collected and sent; Complete Time: 10:37 ms3 06/15 10:07 Order name: O2 Per Protocol; Complete Time: 10:16 ms3 06/15 10:07 Order name: O2 Sat Monitoring; Complete Time: 10:16 ms3 06/15 12:23 Order name: CONS Physician Consult EDMS 06/15 12:25 Order name: Heart Healthy EDMS EC:08 Rate is 129 beats/min. Rhythm is regular. QRS Brady is Normal. Clinical impression: ms3 Atrial Flutter. Interpreted by me. Administered Medications: 10:24 Drug: Cardizem (diltiazem) 20 mg Route: IVP; Site: right forearm; jd3 11:07 Follow up: Response: No adverse reaction jd3 11:07 Drug: amiodarone 900 mg, D5W 500 ml Route: IVPB; Rate: 1 mg/min; Site: right forearm; jd3 11:42 Follow up: Response: No adverse reaction; IV Status: Infusion continued upon admission jd3 Disposition: 10:56 Critical Care:. ms3 Disposition Summary: 06/15/21 10:58 Hospitalization Ordered Hospitalization Status: Inpatient Admission ms3 Provider: Ruben Martinez ms3 Condition: Guarded ms3 Problem: an acute exacerbation ms3 Symptoms: are unchanged ms3 Bed/Room Type: Standard ms3 Location: Intensive Care Unit(06/15/21 20:36) Room Assignment: 4-(06/15/21 20:36) cg Diagnosis - Unspecified atrial flutter ms3 - Shortness of breath ms3 - Chest pain, unspecified ms3 Forms: - Medication Reconciliation Form ms3 - SBAR form ms3 Critical care time excluding procedures: 10:56 Critical care time: Bedside Care: 35 minutes, Consultation: 10 minutes, Family ms3 Intervention: 10 minutes. Total time: 55 minutes Signatures: Dispatcher [employer] EDID Gricel Le RN RN ss Garcia, Cindy, RN RN cg Davies, Jonathon, RN RN jd3 Robbie Fabian DO DO ms3 Corrections: (The following items were deleted from the chart) 12:23 10:58 Intensive Care Unit ms3 ss 12:23 10:58 ms3 ss 20:36 12:23 [facility] ER HOLD ss cg 20:36 12:23 ERHOLD- ss cg
--- NOTE | 2021-06-15 11:19 | RAD REPORT ---
EXAM DESCRIPTION: RAD - Chest Single View - 06/15/2021 11:08 am CLINICAL HISTORY: SOB COMPARISON: No comparisonsChest Single View dated 11/18/2020; Chest Pa And Lat (2 Views) dated 09/29/19; Chest Single View dated 01/22/2016; CHEST SINGLE VIEW dated 09/20/2013 FINDINGS: Lines: ICD. Lungs: No evidence of edema or pneumonia. Emphysema. Pleural: No significant pleural effusions or pneumothorax. Cardiac: The heart size is within normal limits. Bones: No acute fractures. Other: IMPRESSION: No acute cardiopulmonary disease.
[2021-06-15] MEDS ORDERED: ONDANSETRON 4 MG/2 ML VIAL IV PRN (12:22)
--- NOTE | 2021-06-15 12:25 | P.HP ---
Certification for Inpatient Patient admitted to: Observation With expected LOS: <2 Midnights Practitioner: I am a practitioner with admitting privileges, knowledge of patient current condition, hospital course, and medical plan of care. Services: Services provided to patient in accordance with Admission requirements found in Title 42 Section 412.3 of the Code of Federal Regulations Patient History Date of Service: 06/15/21 Reason for admission: A. fib with RVR History of Present Illness: 80yo F, PMH: paroxysmal Afib on eliquis Presents to ED due to palpitations and chest discomfort that began this morning. Associated with shortness of breath. States she has been in her usual state of health up until this episode this morning. Denies missing any medications, no recent changes in medications. Patient was found to be in A. fib 170s, received 10 mg of Cardizem by EMS. Upon arrival to the ED she was noted to be in a flutter, given an additional 20 mg of Cardizem. She had some improvement of her heart rate. Cardiology was consulted, recommended amiodarone drip. ER physician requests admission for further management. Allergies No Known Drug Allergies Allergy (Verified 09/28/20 14:35) Unknown Home Medications: Apixaban [Eliquis] 2.5 mg PO BID 07/09/20 Dronedarone [Multaq] 400 mg PO BID 07/09/20 Acetaminophen [Tylenol Extra Strength] 500 mg PO PRN PRN 09/28/20 Ascorbic Acid [Vitamin C] 500 mg PO DAILY 09/28/20 Dextran 70/Hypromellose [Artificial Tears Drops] 15 ml OP DAILY 09/28/20 Mirabegron [Myrbetriq] 50 mg PO DAILY 09/28/20 Pantoprazole [Protonix Tab] 40 mg PO DAILY 06/15/21 Sucralfate [Carafate -Tab] 1 gm PO DAILY 06/15/21 - Past Medical/Surgical History Diabetic: No -: pacemaker turned off July 18, 2013 -: [place] -: Diverticulitis -: [place] -: pacemaker - Family History Family History: Reviewed- Non-Contributory - Social History Smoking Status: Never smoker Alcohol use: Yes CD- Drugs: No Caffeine use: Yes Place of Residence: Home Review of Systems 10-point ROS is otherwise unremarkable Physical Examination - Physical Exam General: Alert, In no apparent distress, Oriented x3 HEENT: Mucous membr. moist/pink, Sclerae nonicteric Neck: No LAD Respiratory: Clear to auscultation bilaterally, Normal air movement Cardiovascular: No edema, Irregular heart rate/rhythm Gastrointestinal: Soft and benign, Non-distended, No tenderness Musculoskeletal: No erythema, No tenderness Integumentary: No rashes, No significant lesion Neurological: Normal speech, Normal strength at 5/5 x4 extr, Normal affect - Studies Laboratory Data (last 24 hrs) 06/15/21 10:20: WBC 4.4, Hgb 13.5, Hct 39.6, Plt Count 269 06/15/21 10:20: Sodium 137, Potassium 3.9, BUN 17, Creatinine 1.29, Glucose 114 H Assessment and Plan - Advance Directives Does patient have a Living Will: No Does patient have a Durable POA for Healthcare: Yes Physician Review Additional Text: Problem list A. fib with RVR on eliquis h/o paroxysmal A. fib GERD Review of systems negative, unclear why patient is with A. fib RVR after being controlled for quite some time. Cardiology consulted Continue amiodarone drip Monitor on telemetry Continue home Eliquis Continue home pantoprazole Continue home Carafate VTE: eliquis Code: DNR Dispo: home, 1-2 days Time Spent Managing Pts Care (In Minutes): 60
[2021-06-15] MEDS ORDERED: AMIODARONE HCL 900 MG in Dextrose 5%-Water 482 ML IV SCH (13:00)
[2021-06-15 13:04] LABS: Thyroid Stimulating Hormone 2.01 uIU/mL (0.360-3.740)
[2021-06-15 13:33] VITALS: BMI 19.4
[2021-06-15] MEDS: SUCRALFATE 1 GM TABLET PO SCH (22:01)
[2021-06-15] MEDS: APIXABAN 2.5 MG TABLET PO SCH (22:01)
[2021-06-16] MEDS ORDERED: ACETAMINOPHEN 500 MG TAB PO PRN (02:48)
[2021-06-16] MEDS ORDERED: AMIODARONE IN DEXTROSE,ISO-OSM 360 MG/200 ML BAG IV ONE (03:10)
[2021-06-16 05:01] LABS: Absolute Lymphocytes (CBC) 1.9 K/uL (0.7-4.9); Hematocrit 37.1 % (36.0-45.0); Lymphocytes % 38.5 % (15.3-44.8); MPV 9.2 fL (7.6-11.3); RBC Red Blood Cell Count 4.23 M/uL (3.86-4.86)
[2021-06-16 05:31] LABS: Albumin 3.4 g/dL (3.4-5.0); Bilirubin Total 0.2 mg/dL (0.2-1.0); Magnesium 2.2 mg/dL (1.8-2.4); Potassium 4.1 mmol/L (3.5-5.1); Protein, Total 6.5 g/dL (6.4-8.2)
[2021-06-16] MEDS: SUCRALFATE 1 GM TABLET PO SCH (07:48)
[2021-06-16 08:38] VITALS: O2SAT 96
[2021-06-16 08:55] VITALS: TEMP 97.2
[2021-06-16] MEDS: APIXABAN 2.5 MG TABLET PO SCH (08:55)
[2021-06-16] MEDS ORDERED: PANTOPRAZOLE 40MG TABLET PO SCH (09:00)
[2021-06-16] MEDS ORDERED: AMIODARONE HCL 200 MG TAB PO SCH (09:00)
[2021-06-16 09:23] VITALS: BP 148/83
--- NOTE | 2021-06-16 11:41 | P.DS ---
Admission Date: 06/15/21 Discharge Date: 06/16/21 Disposition: ROUTINE DISCHARGE Discharge Condition: GOOD Reason for Admission: A. fib with RVR Consultations: Cardiology - Dr. Dunham Procedures: Problem list A. fib with RVR on eliquis h/o paroxysmal A. fib GERD Brief History of Present Illness: 80yo F, PMH: paroxysmal Afib on eliquis Presents to ED due to palpitations and chest discomfort that began this morning. Associated with shortness of breath. States she has been in her usual state of health up until this episode this morning. Denies missing any medications, no recent changes in medications. Patient was found to be in A. fib 170s, received 10 mg of Cardizem by EMS. Upon arrival to the ED she was noted to be in a flutter, given an additional 20 mg of Cardizem. She had some improvement of her heart rate. Cardiology was consulted, recommended amiodarone drip. ER physician requests admission for further management. Hospital Course: Patient was found to be in rapid afib. Her rhythm converted to sinus rhythm after several hours on IV amiodarone. She remained in sinus rhythm overnight. Cardiology was consulted and recommended discharge home with Amiodarone in place of her Multaq. Otherwise, continue home meds as previously prescribed. Vital Signs/Physical Exam: Temp Pulse Resp BP Pulse Ox 97.2 F 74 21 H 148/83 H 97 06/16/21 08:00 06/16/21 09:00 06/16/21 09:00 06/16/21 09:00 06/16/21 09:00 Physical Exam General: Alert, In no apparent distress, Oriented x3 Respiratory: Clear to auscultation bilaterally, Normal air movement Cardiovascular: No edema, regular rate/rhythm Gastrointestinal: Soft and benign, Non-distended, No tenderness Neurological: Normal speech, Normal affect Laboratory Data at Discharge: WBC 4.9 K/uL (4.3-10.9) 06/16/21 04:39 Hgb 12.5 g/dL (12.0-15.0) 06/16/21 04:39 Hct 37.1 % (36.0-45.0) 06/16/21 04:39 Plt Count 242 K/uL (152-406) 06/16/21 04:39 Sodium 137 mmol/L (136-145) 06/16/21 04:39 Potassium 4.1 mmol/L (3.5-5.1) 06/16/21 04:39 BUN 20 mg/dL (7-18) H 06/16/21 04:39 Creatinine 1.16 mg/dL (0.55-1.3) 06/16/21 04:39 Glucose 100 mg/dL (74-106) 06/16/21 04:39 Magnesium 2.2 mg/dL (1.8-2.4) 06/16/21 04:39 Total Bilirubin 0.2 mg/dL (0.2-1.0) 06/16/21 04:39 AST 20 U/L (15-37) 06/16/21 04:39 ALT 19 U/L (12-78) 06/16/21 04:39 Alkaline Phosphatase 72 U/L (45-117) 06/16/21 04:39 Home Medications: Apixaban [Eliquis *] 2.5 mg PO BID 07/09/20 Acetaminophen [Tylenol Extra Strength] 500 mg PO PRN PRN 09/28/20 Ascorbic Acid [Vitamin C*] 500 mg PO DAILY 09/28/20 Dextran 70/Hypromellose [Artificial Tears Drops] 15 ml OP DAILY 09/28/20 Mirabegron [Myrbetriq] 50 mg PO DAILY 09/28/20 Pantoprazole [Protonix Tab*] 40 mg PO DAILY 06/15/21 Sucralfate [Carafate*] 1 gm PO DAILY 06/15/21 Amiodarone HCl [Cordarone*] 200 mg PO BID 30 Days #60 tab 06/16/21 New Medications: Amiodarone HCl [Cordarone*] 200 mg PO BID 30 Days #60 tab Physician Discharge Instructions: PROBLEM: Afib GOAL: Clear understanding of disease process INSTRUCTIONS: Patient was found to be in rapid afib. Her rhythm converted to sinus rhythm after several hours on IV amiodarone. She remained in sinus rhythm overnight. Cardiology was consulted and recommended discharge home with Amiodarone in place of her Multaq. Otherwise, continue home meds as previously prescribed. Diet: AHA Activity: Ad darlene DME DME: Date Ordered: Name of Company: [employer] Services Needed: Name of Company: Date or Referral: IMMUNIZATION Influenza Vaccine Indicated: No Influenza Vaccine Given: Date Given: Pneumonia Vaccine Indicated: No Pneumonia Vaccine Given: Date Given: Follow up with a [employer] of your choice: Follow up with Cardiology in 1-2 week. PRICE KU, [address] [address] DANYA KU, LEANNE [address] [place] [id number] Diet: AHA Activity: Ad darlene Followup: OOTOOT [Primary Care Provider] - Time spent managing pt's care (in minutes): 45
--- NOTE | 2021-06-16 12:20 | CON ---
Date of Consultation: 06/15/2021 Reason For Consultation: Atrial fibrillation. History Of Present Illness: Ms. Bhandari is 80. She is a do not resuscitate. She is known to me from the office. She has had a history of paroxysmal atrial fibrillation for which she takes Multaq and E liquis. She has a history of CVD. She has moderate mitral regurgitation and pulmonary hypertension with a normal ejection fraction by an echo last year. She has mitral valve prolapse and hypertension , comes in with atrial fibrillation with rapid ventricular response. No other symptoms. No syncope. No chest pain. She was placed on IV amiodarone and I agree with that. Past Medical History: As stated above. Allergies: NONE. Review of Systems: Negative. Social History: Negative. Family History: Negative. Medications: At home include Multaq, Eliquis, Lipitor, and Nexium. Physical Examination: General: She was in atrial fibrillation. Vital Signs: Heart rate 130-150, afebrile, normal blood pressure. HEENT: Negative. Neck: Supple with no bruit. Chest: Clear. Cardiac: Revealed atrial fibrillation. Abdomen: Benign. Extremities: Revealed no clubbing, cyanosis, or edema. Diagnostic Data: Chest x-ray is normal. Troponin is normal. EKG showed atrial fibrillation. Impression And Plan: Recurrent atrial fibrillation despite Multaq and Eliquis. She is on IV amiodar one. We will see how she does with that. If she does not convert by tomorrow morning, I will cardio vert her electrically. Her other problems including CVD, pulmonary hypertension, moderate mitral reg urgitation, mitral valve prolapse and hypertension are stable. Again, we will see what she does sapna rrow and then decide whether to send her home or not. BARBRA/KAT Voice ID: [id number] Report ID: [id number]
--- NOTE | 2021-06-16 12:35 | PN ---
Date of Progress Note: 06/16/2021 History Of Present Illness: Ms. Bhandari is an 80-year-old woman with history of atrial fibrillation, c martha in with atrial fibrillation yesterday despite Multaq. She is on Eliquis at home. Was placed on IV amiodarone yesterday. Today, she is in normal sinus rhythm. I will send her home. She has other problems including CVD, pulmonary hypertension, moderate mitral regurgitation, normal ejection fract ion, mitral valve prolapse and hypertension and dyslipidemia. All of those are stable. I will send her home on Eliquis, Lipitor, and Nexium. I will switch Multaq to amiodarone 200 b.i.d. p.o. and sen d him home today. I will see her in the office in the very near future. Discontinue the Multaq. BARBRA/KAT Voice ID: [id number] Report ID: [id number]
--- NOTE | 2021-06-20 11:28 | EKG ---
Test Date: 2021-06-15 Test Time: 15:26:13 [employer] Specialist: EMILIANO MEASUREMENT RESULTS: Intervals: Rate: 70 MI: 190 QRSD: 74 QT: 422 QTc: 455 [place]: P: 81 MI: 190 QRS: 90 T: 73 INTERPRETIVE STATEMENTS: Normal sinus rhythm Rightward axis Borderline ECG Compared to ECG 06/15/2021 10:03:54 Right-axis deviation now present Atrial flutter no longer present ST (T wave) deviation no longer present Electronically Signed On 06-20-21 11:14:41 CDT by Juve Dunham
--- NOTE | 2021-06-20 11:30 | EKG ---
Test Date: 2021-06-15 Test Time: 10:03:54 [place]: MEASUREMENT RESULTS: Intervals: Rate: 129 RI: QRSD: 76 QT: 328 QTc: 480 [place]: P: 244 RI: QRS: 86 T: -21 INTERPRETIVE STATEMENTS: Atrial flutter with 2:1 AV conduction Low voltage QRS Marked ST abnormality, possible inferior subendocardial injury Abnormal ECG Compared to ECG 11/18/2020 15:28:38 Low QRS voltage now present ST (T wave) deviation now present Sinus rhythm no longer present Prolonged QT interval no longer present Electronically Signed On 06-20-21 11:14:54 CDT by Juve Dunham
== END 2021-06-16 10:06 | disposition home or self-care (01) ==
LOC: ER 09:56 → ERHOLD 12:33 → INTOOBSV 18:34 → OBSVTOIN 18:34 → 3RD-ICU 21:57
PROVIDERS: ADMIT Hospitalist; ATTEND Hospitalist
DX: I48.0 Paroxysmal atrial fibrillation (principal); K21.9 Gastro-esophageal reflux disease without esophagitis; I34.1 Nonrheumatic mitral (valve) prolapse; I10 Essential (primary) hypertension; I27.20 Pulmonary hypertension, unspecified; I67.9 Cerebrovascular disease, unspecified; E78.5 Hyperlipidemia, unspecified; K57.92 Diverticulitis of intestine, part unspecified, without perforation or abscess without bleeding; H40.9 Unspecified glaucoma; I25.2 Old myocardial infarction; Z66 Do not resuscitate; Z79.01 Long term (current) use of anticoagulants; Z20.822 Contact with and (suspected) exposure to COVID-19
CPT/HCPCS: 96365; 93005 ×2; 85025 ×2; 80048; 36415 ×2; 83735; 84443; 84484; 84439; 80053; 71045; 94760 ×2; 96375; 99285; U0003; J0282 ×3; G0378 ×3

== ENCOUNTER 2022-04-16 12:37 | Observation (INO) | payer OTHER ==
--- OUTSIDE RECORDS SUMMARY | 2022-04-16 12:53 | XMS REPORT | Continuity of Care Document ---
:1940 Author Organization [facility] t Address [address] [place] [address] Care Team Providers Name Role Phone Franchesca-Mbayo_A_AH Attending Clinician Unavailable Franchesca-Mbayo_A_AH Admitting Clinician Unavailable Payers Payer Name Policy Type Policy Number Effective Date Expiration Date S graeme [facility] [place] - [id number] 2019 [employer] 00:00:00 (MEDICARE REPLACEMENT/ADVANT AGE - [...] 2019-05-29 2019-05-29 Outpatient Franchesca-Mbayo VFP VFP [phone] [facility] 02:20:00 02:20:00 _A_AH [id number] Family Practic e 2019-05-29 2019-05-29 Outpatient Franchesca-Mbayo VFP VFP [phone] [facility] 02:20:00 02:20:00 _A_AH [id number] Family Practic e 2019-05-29 2019-05-29 Outpatient Franchesca-Mbayo VFP VFP [phone] [facility] 02:20:00 02:20:00 _A_AH [id number] Family Practic e 2019-05-07 2019-05-07 Outpatient Franchesca-Mbayo VFP VFP [phone] [facility] 07:15:00 07:15:00 _A_AH [id number] Family Practic e Results This patient has no known results.
[2022-04-16] MEDS ORDERED: METOPROLOL TARTRATE 5 MG/5 ML INJ IV ONE (12:59)
[2022-04-16 13:09] LABS: Absolute Lymphocytes (CBC) 0.9 K/uL (0.7-4.9); Hematocrit 41.1 % (36.0-45.0); MCV 87.5 fL (80-100); MPV 8.7 fL (7.6-11.3)
[2022-04-16 13:12] LABS: Protime INR 1.21
[2022-04-16 13:20] LABS: SARS-CoV-2 Antigen Rapid Res Negative (Negative)
--- NOTE | 2022-04-16 13:20 | RAD REPORT ---
EXAM DESCRIPTION: RAD - Chest Single View - 04/16/2022 1:12 pm CLINICAL HISTORY: CHEST PAIN COMPARISON: Chest Single View dated 06/15/2021; Chest Single View dated 11/18/2020; Chest Pa And Lat (2 Views) dated 09/28/2020; Chest Single View dated 01/22/2016 FINDINGS: Lines: Defibrillator. Lungs: No evidence of edema or pneumonia. Pleural: No significant pleural effusions or pneumothorax. Cardiac: The heart size is within normal limits. Mediastinum: Within normal limits. Bones: No acute fractures. Other: None IMPRESSION: No acute cardiopulmonary disease.
[2022-04-16 13:28] LABS: Albumin 3.8 g/dL (3.4-5.0); Bilirubin Direct 0.1 mg/dL (0-0.2); Bilirubin Total 0.4 mg/dL (0.2-1.0); Magnesium 1.9 mg/dL (1.6-2.4); Protein, Total 7.4 g/dL (6.4-8.2); Troponin High Sensitivity 17.8 pg/mL (<58.9)
--- NOTE | 2022-04-16 14:22 | ER ---
Nurse's Notes [facility] Name: Nereida Bhandari Age: 81 yrs Sex: Female : 1940 Arrival Date: 04/16/2022 Time: 12:39 Bed 3 Private MD: Diagnosis: Chest pain, unspecified;Hypertensive urgency Presentation: 04/16 12:48 Chief complaint: Patient states: woke up in the middle of the night with chest pain. PT ss reports that the pain is constant and is worse when she swallows. Coronavirus screen: Client denies travel out of the [place] in the last 14 days. Ebola Screen: Patient denies exposure to infectious person. Patient denies travel to an Ebola-affected area in the 21 days before illness onset. Initial Sepsis Screen: Does the patient meet any 2 criteria? No. Patient's initial sepsis screen is negative. Does the patient have a suspected source of infection? No. Patient's initial sepsis screen is negative. Risk Assessment: Do you want to hurt yourself or someone else? Patient reports no desire to harm self or others. Onset of symptoms was April 16, 2022. 12:48 Method Of Arrival: Wheelchair ss 12:48 Acuity: JESSE 2 ss Historical: - Allergies: 12:48 No Known Drug Allergies; hb - Home Meds: 12:48 artificial tears(hypromellose) 1 % Opht drop daily [Active]; atorvastatin Oral hb [Active]; Eliquis 5 mg Oral tab 1 tab 2 times per day [Active]; Multaq 400 mg Oral tab 1 tab 2 times per day [Active]; pantoprazole 40 mg Oral grps [Active]; sucralfate Oral [Active]; - PMHx: 12:48 Atrial fibrillation; hb - PSHx: 12:48 hernia repair; hb - Immunization history:: Adult Immunizations up to date. - Social history:: Smoking status: Patient denies any tobacco usage or history of. Screenin:48 [facility] ED Fall Risk Assessment (Adult) Score/Fall Risk Level 3 or more points = High hb Risk Oriented to surroundings, Maintained a safe environment, Educated pt \T\ family on fall prevention, incl call for assistance when getting out of bed, Hourly rounding (assess needs \T\ fall precautionary measures) done. Abuse screen: Denies threats or abuse. Denies injuries from another. Nutritional screening: No deficits noted. Tuberculosis screening: No symptoms or risk factors identified. Assessment: 12:49 General: Appears in no apparent distress. uncomfortable, Behavior is calm, cooperative. hb Pain: Pain currently is 5 out of 10 on a pain scale. at worst was 9 out of 10 on a pain scale. Neuro: Level of Consciousness is awake, alert, obeys commands, Oriented to person, place, time, situation. Cardiovascular: Reports chest pain, Patient's skin is warm and dry. Rhythm is regular. Respiratory: Respiratory effort is even, unlabored, Respiratory pattern is regular, symmetrical. GI: No signs and/or symptoms were reported involving the gastrointestinal system. : No signs and/or symptoms were reported regarding the genitourinary system. EENT: No signs and/or symptoms were reported regarding the EENT system. Derm: Skin is pink, warm \T\ dry. Musculoskeletal: No signs and/or symptoms reported regarding the musculoskeletal system. 13:38 Reassessment: Patient appears in no apparent distress at this time. No changes from hb previously documented assessment. Patient and/or family updated on plan of care and expected duration. Pain level reassessed. 14:30 Reassessment: Patient appears in no apparent distress at this time. No changes from hb previously documented assessment. Patient and/or family updated on plan of care and expected duration. Pain level reassessed. 15:20 Reassessment: PT vomiting dark brown emesis, specimen sent to lab for occult per Rosario hb DIRECTOR OF PUPIL PERSONNEL PROGRAM. 15:35 Reassessment: Dr. Arcos at bedside. hb 17:00 Reassessment: Patient appears in no apparent distress at this time. No changes from hb previously documented assessment. Patient and/or family updated on plan of care and expected duration. Pain level reassessed. 18:30 Reassessment: Patient appears in no apparent distress at this time. No changes from hb previously documented assessment. Patient and/or family updated on plan of care and expected duration. Pain level reassessed. Vital Signs: 12:48 BP 184 / 104; Pulse 107; Resp 24; Pulse Ox 98% on R/A; Weight 56.7 kg; Height 5 ft. 7 ss in. (170.18 cm); Pain 5/10; 13:07 BP 166 / 85; Pulse 76; hb 13:20 BP 166 / 92; Pulse 77; Resp 23; Pulse Ox 100% on R/A; Pain 5/10; hb 14:30 BP 160 / 98; Pulse 76; Resp 25; Pulse Ox 97% on R/A; hb 15:53 BP 152 / 102; Pulse 88; Resp 24; Pulse Ox 99% on R/A; hb 16:30 BP 128 / 89; Pulse 83; Resp 17; Pulse Ox 98% on R/A; hb 18:30 BP 173 / 101; Pulse 91; Resp 18; Pulse Ox 99% on R/A; hb 19:00 BP 182 / 89; Pulse 90; Resp 21; Pulse Ox 100% on R/A; hb 19:44 BP 158 / 77; Pulse 90; Resp 18; Pulse Ox 94% ; tw5 12:48 Body Mass Index 19.58 (56.70 kg, 170.18 cm) ss ED Course: 12:39 Patient arrived in ED. eb 12:40 Rosario Champagne FNP-C is PHCP. snw 12:40 Stefan Florez MD is Attending Physician. snw 12:47 Lore Howell, RN is Primary Nurse. hb 12:48 Arm band placed on. hb 12:50 Triage completed. ss 13:03 Inserted saline lock: 20 gauge in right antecubital area, using aseptic technique. rs5 Blood collected. 13:04 Basic Metabolic Panel Sent. rs5 13:04 CBC with Diff Sent. rs5 13:04 LFT's Sent. rs5 13:04 Magnesium Sent. rs5 13:04 NT PRO-BNP Sent. rs5 13:04 PT-INR Sent. rs5 13:04 Troponin HS Sent. rs5 13:04 SARS RAPID Sent. rs5 13:13 XRAY Chest (1 view) In Process Unspecified. EDMS 14:21 Kameron Arcos MD is Hospitalizing Provider. snw 19:11 Primary Nurse role handed off by Lore Howell, RN mw2 19:26 No provider procedures requiring assistance completed. Patient admitted, IV remains in tw5 place. 19:27 Patient has correct armband on for positive identification. Door closed. tw5 Administered Medications: 12:55 Drug: Metoprolol 5 mg Route: IVP; Site: right antecubital; hb 13:10 Drug: Metoprolol 5 mg Route: IVP; Site: right antecubital; hb 13:38 CANCELLED (Physician Discretion): [place] (HYDROcodone-acetaminophen) 5 mg-325 mg 1 tabs snw PO once 15:19 Drug: ProTONIX (pantoprazole) 40 mg Route: IVP; Site: right antecubital; hb 15:19 Drug: ProTONIX (pantoprazole) 40 mg Route: IVP; Site: right antecubital; hb Medication: 19:27 VIS not applicable for this client. tw5 Outcome: 14:21 Decision to Hospitalize by Provider. snw 19:26 Admitted to Med/surg Report called to Attempted to call report. Spoke to Lidia. She tw5 was attempting to find the nurse. 19:26 Condition: stable 19:26 Instructed on the need for admit. 19:30 Admitted to Report called to [facility] 19:59 Patient left the ED. vc1 Signatures: Dispatcher [employer] EDMS Rosario Champagne, PNEUMATIC TOOL REPAIRER-C PNEUMATIC TOOL REPAIRER-Csnw Gricel Le RN RN Lore Howell RN RN Ian Nunes 2 Tricia Montano Tiffany tw5 Alyssia Raygoza RN RN vc1 Ruperto Andres 5 Corrections: (The following items were deleted from the chart) 18:52 18:32 BP 173 / 101; Pulse 91bpm; Resp 15bpm; Pulse Ox 99%; hb hb
--- NOTE | 2022-04-16 14:22 | EDPHYS ---
Physician Documentation [facility] Name: Nereida Bhandari Age: 81 yrs Sex: Female : 1940 Arrival Date: 04/16/2022 Time: 12:39 Bed 3 Private MD: ED Physician Stefan Florez HPI: 04/16 14:13 This 81 yrs old Female presents to ER via Wheelchair with complaints of Chest Pain > 30 snw y/o. 14:13 The patient or guardian reports chest pain that is located primarily in the substernal snw area. 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 The pain does not radiate. Associated signs and symptoms: Pertinent positives: shortness of breath, Pertinent negatives: dizziness, nausea, palpitations, vomiting. The chest pain is described as squeezing. Duration: The patient or guardian reports a single episode, that is still ongoing. Severity of pain: At its worst the pain was moderate in the emergency department the pain has improved mildly. The patient has experienced a previous episode. sees Dr. Gunter. Historical: - Allergies: 12:48 No Known Drug Allergies; hb - Home Meds: 12:48 artificial tears(hypromellose) 1 % Opht drop daily [Active]; atorvastatin Oral hb [Active]; Eliquis 5 mg Oral tab 1 tab 2 times per day [Active]; Multaq 400 mg Oral tab 1 tab 2 times per day [Active]; pantoprazole 40 mg Oral grps [Active]; sucralfate Oral [Active]; - PMHx: 12:48 Atrial fibrillation; hb - PSHx: 12:48 hernia repair; hb - Immunization history:: Adult Immunizations up to date. - Social history:: Smoking status: Patient denies any tobacco usage or history of. ROS: 14:14 Constitutional: Negative for fever, chills, and weight loss, Eyes: Negative for injury, snw pain, redness, and discharge, ENT: Negative for injury, pain, and discharge, Neck: Negative for injury, pain, and swelling. 14:14 Abdomen/GI: Negative for abdominal pain, nausea, vomiting, diarrhea, and constipation, Back: Negative for injury and pain, : Negative for injury, bleeding, discharge, and swelling, MS/Extremity: Negative for injury and deformity, Skin: Negative for injury, rash, and discoloration. 14:14 Cardiovascular: Positive for chest pain, of the chest. 14:14 Respiratory: Positive for shortness of breath. 14:14 Neuro: Positive for anxious feeling, like "I was going to ". Exam: 12:40 Head/Face: Normocephalic, atraumatic. Eyes: Pupils equal round and reactive to light, snw extra-ocular motions intact. Lids and lashes normal. Conjunctiva and sclera are non-icteric and not injected. Cornea within normal limits. Periorbital areas with no swelling, redness, or edema. ENT: Nares patent. No nasal discharge, no septal abnormalities noted. Tympanic membranes are normal and external auditory canals are clear. Oropharynx with no redness, swelling, or masses, exudates, or evidence of obstruction, uvula midline. Mucous membranes moist. Neck: Trachea midline, no thyromegaly or masses palpated, and no cervical lymphadenopathy. Supple, full range of motion without nuchal rigidity, or vertebral point tenderness. No Meningismus. Chest/axilla: Normal chest wall appearance and motion. Nontender with no deformity. No lesions are appreciated. 12:40 Constitutional: The patient appears alert, anxious, frail. 12:40 Cardiovascular: Rate: tachycardic, Rhythm: regular, Heart sounds: normal. 12:45 Respiratory: Lungs have equal breath sounds bilaterally, clear to auscultation and snw percussion. No rales, rhonchi or wheezes noted. No increased work of breathing, no retractions or nasal flaring. Abdomen/GI: Soft, non-tender, with normal bowel sounds. No distension or tympany. No guarding or rebound. No evidence of tenderness throughout. Back: No spinal tenderness. No costovertebral tenderness. Full range of motion. Skin: Warm, dry with normal turgor. Normal color with no rashes, no lesions, and no evidence of cellulitis. MS/ Extremity: Pulses equal, no cyanosis. Neurovascular intact. Full, normal range of motion. Neuro: Awake and alert, GCS 15, oriented to person, place, time, and situation. Cranial nerves II-XII grossly intact. Motor strength 5/5 in all extremities. Sensory grossly intact. Cerebellar exam normal. Normal gait. 12:45 Psych: Behavior/mood is pleasant, cooperative, anxious, Affect is animated. Vital Signs: 12:48 BP 184 / 104; Pulse 107; Resp 24; Pulse Ox 98% on R/A; Weight 56.7 kg; Height 5 ft. 7 ss in. (170.18 cm); Pain 5/10; 13:07 BP 166 / 85; Pulse 76; hb 13:20 BP 166 / 92; Pulse 77; Resp 23; Pulse Ox 100% on R/A; Pain 5/10; hb 14:30 BP 160 / 98; Pulse 76; Resp 25; Pulse Ox 97% on R/A; hb 15:53 BP 152 / 102; Pulse 88; Resp 24; Pulse Ox 99% on R/A; hb 16:30 BP 128 / 89; Pulse 83; Resp 17; Pulse Ox 98% on R/A; hb 18:30 BP 173 / 101; Pulse 91; Resp 18; Pulse Ox 99% on R/A; hb 19:00 BP 182 / 89; Pulse 90; Resp 21; Pulse Ox 100% on R/A; hb 19:44 BP 158 / 77; Pulse 90; Resp 18; Pulse Ox 94% ; tw5 12:48 Body Mass Index 19.58 (56.70 kg, 170.18 cm) ss MDM: 12:41 Patient medically screened. snw 13:50 HEART Score: History: Highly Suspicious (2), ECG: Non specific repolarization snw disturbance / LBTB / PM (1), Age: > or = 65 years (2), Risk Factors: 1 or 2 risk factors (1), [Hypercholesterolemia] [Hypertension] Troponin: < or = 1 x Normal Limit (0), Total Score = 6. The patient was not given aspirin in the Emergency Department. Not indicated due to patient's past medical history. Data reviewed: vital signs, nurses notes, lab test result(s), EKG, radiologic studies. Management of patient was discussed with the following: Hospitalist: Request for admission for continued eval. Care significantly affected by the following chronic conditions: Hypertension. Counseling: I had a detailed discussion with the patient and/or guardian regarding: the historical points, exam findings, and any diagnostic results supporting the discharge/admit diagnosis, lab results, radiology results, the need for further work-up and treatment in the hospital. 14:15 Differential diagnosis: abnormal EKG, acute myocardial infarction, anxiety, coronary snw artery disease congestive heart failure. 14:20 Response to treatment: the patient's symptoms have mildly improved after treatment, snw blood pressure and heart rate improved.. 04/16 12:41 Order name: Basic Metabolic Panel; Complete Time: 13:30 snw 04/16 12:41 Order name: CBC with Diff; Complete Time: 13:21 snw 04/16 12:41 Order name: LFT's; Complete Time: 13:30 w 04/16 12:41 Order name: Magnesium; Complete Time: 13:30 snw 04/16 12:41 Order name: NT PRO-BNP; Complete Time: 13:30 w 04/16 12:41 Order name: PT-INR; Complete Time: 13:21 w 04/16 12:41 Order name: Troponin HS; Complete Time: 13:30 w 04/16 12:42 Order name: SARS RAPID; Complete Time: 13:22 eb 04/16 14:59 Order name: Basic Metabolic Panel [facility] 04/16 14:59 Order name: Basic Metabolic Panel [facility] 04/16 14:59 Order name: CBC with Automated Diff [facility] 04/16 14:59 Order name: CBC with Automated Diff [facility] 04/16 14:59 Order name: Lipid Profile [facility] 04/16 14:59 Order name: Lipid Profile [facility] 04/16 12:41 Order name: XRAY Chest (1 view); Complete Time: 13:22 w 04/16 12:41 Order name: EKG; Complete Time: 12:42 w 04/16 14:59 Order name: CONS Physician Consult [facility] 04/16 14:59 Order name: Echo with Doppler [facility] 04/16 14:59 Order name: Echo with Doppler [facility] 04/16 14:59 Order name: Troponin High Sensitivity [facility] 04/16 14:59 Order name: Troponin High Sensitivity [facility] 04/16 14:59 Order name: Troponin High Sensitivity [facility] 04/16 14:59 Order name: Troponin High Sensitivity; Complete Time: 16:13 [facility] 04/16 15:36 Order name: Gastric Occult Blood; Complete Time: 15:40 [facility] 04/16 16:10 Order name: Hemoglobin; Complete Time: 16:13 [facility] 04/16 16:10 Order name: Hematocrit; Complete Time: 16:13 [facility] 04/16 12:41 Order name: Cardiac monitoring; Complete Time: 12:47 w 04/16 12:41 Order name: EKG - Nurse/Tech; Complete Time: 12:47 w 04/16 12:41 Order name: IV Saline Lock; Complete Time: 12:47 w 04/16 12:41 Order name: Labs collected and sent; Complete Time: 13:10 04/16 12:41 Order name: O2 Per Protocol; Complete Time: 12:47 w 04/16 12:41 Order name: O2 Sat Monitoring; Complete Time: 12:47 04/16 14:59 Order name: Heart Healthy EDMS EC:45 Rate is 104 beats/min. Rhythm is irregular. Q waves are Present in leads aVL, aVR. No snw ST changes noted. Clinical impression: Sinus tachycardia and PACs, . Administered Medications: 12:55 Drug: Metoprolol 5 mg Route: IVP; Site: right antecubital; hb 13:10 Drug: Metoprolol 5 mg Route: IVP; Site: right antecubital; hb 13:38 CANCELLED (Physician Discretion): [place] (HYDROcodone-acetaminophen) 5 mg-325 mg 1 tabs snw PO once 15:19 Drug: ProTONIX (pantoprazole) 40 mg Route: IVP; Site: right antecubital; hb 15:19 Drug: ProTONIX (pantoprazole) 40 mg Route: IVP; Site: right antecubital; hb Disposition Summary: 04/16/22 14:21 Hospitalization Ordered Hospitalization Status: Inpatient Admission snw Provider: Kameron Arcos snmary alice Location: Telemetry/MedSurg (Inpatient) snw Condition: Stable snw Problem: an acute exacerbation snw Symptoms: are unchanged snw Bed/Room Type: Standard snw Room Assignment: 420(04/16/22 18:51) eb Diagnosis - Chest pain, unspecified snw - Hypertensive urgency snw Forms: - Medication Reconciliation Form snw - SBAR form snw Signatures: Dispatcher [employer] EDRosario Ulloa FNP-C CORPORATE TRAVEL COORDINATOR-Csnw Lore Howell RN RN Tricia Felder Corrections: (The following items were deleted from the chart) 13:38 13:36 [place] (HYDROcodone-acetaminophen) 5 mg-325 mg 1 tabs PO once ordered. [facility] sn 13:38 13:38 [place] (HYDROcodone-acetaminophen) 5 mg-325 mg 1 tabs PO once ordered. [facility] sn 13:55 13:49 HEART Score: History: [facility] 18:51 14:21 eb
[2022-04-16] MEDS ORDERED: ACETAMINOPHEN 500 MG TAB PO PRN (14:52)
[2022-04-16] MEDS ORDERED: ALPRAZOLAM 0.25 MG TABLET PO PRN (14:52)
[2022-04-16] MEDS ORDERED: PANTOPRAZOLE 40 MG INJ ONE (15:18)
[2022-04-16] MEDS ORDERED: MORPHINE 2 MG/ML SYR IV PRN (15:28)
[2022-04-16] MEDS: PANTOPRAZOLE INJ 80 MG in NA CHLORIDE 0.9% 250 ML IV SCH ×2 (16:00→21:42)
[2022-04-16 16:06] LABS: Hematocrit 38.4 % (36.0-45.0)
[2022-04-16 20:15] VITALS: BMI 19.9
[2022-04-16] MEDS: METOPROLOL TAR 50 MG TAB PO SCH (21:42)
[2022-04-17] MEDS ORDERED: SODIUM CHLORIDE 0.9% 10ML INJ IV PRN (01:35)
--- NOTE | 2022-04-17 01:41 | P.HP ---
Certification for Inpatient Patient admitted to: Observation With expected LOS: <2 Midnights Patient will require the following post-hospital care: None Practitioner: I am a practitioner with admitting privileges, knowledge of patient current condition, hospital course, and medical plan of care. Services: Services provided to patient in accordance with Admission requirements found in Title 42 Section 412.3 of the Code of Federal Regulations Patient History Date of Service: 04/16/22 Reason for admission: Chest pain rule out acute coronary syndrome History of Present Illness: Patient is an 81-year-old female who came to the hospital with chest discomfort. Patient had episode of nausea and vomiting this morning. She states she woke up around midnight and felt lightheaded. And then she was having a headache when she woke up after breakfast and drinking her coffee she had an episode of nausea vomiting. Her son noted that it was brown like her coffee that she has been drinking. He brought her into the hospital as she was not feeling well. In the emergency room, she was playing the some chest pain mainly in the sternal region. On exam he will mainly in the epigastric area. She had no radiation of the pain and she did not have diaphoresis. However, in light of the sensation of lightheadedness decision was made to admit the patient for observation. Patient will be ruled out for acute coronary syndrome. A little bit after admission she had another episode of vomiting and looked like coffee-ground emesis. . Patient was started on Protonix. Will repeat H&H. Monitor very closely. GI and cardiology consultation. 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 moist/pink, EOMI, Sclerae nonicteric Neck: Supple, 2+ carotid pulse no bruit, No LAD, Without JVD or thyroid abnormality Respiratory: Clear to auscultation bilaterally, Normal air movement Cardiovascular: Regular rate/rhythm, Normal S1 S2, No murmurs Gastrointestinal: Normal bowel sounds, Soft and benign, Non-distended, Tenderness ( Epigastric region) Musculoskeletal: No clubbing, No swelling, No tenderness Integumentary: No rashes Neurological: Normal speech, Normal strength at 5/5 x4 extr, Normal tone, Sensat ion intact, Cranial nerves 3-12 intact, Normal affect Lymphatics: No axilla or inguinal lymphadenopathy - Studies Laboratory Data (last 24 hrs) 04/16/22 13:01: PT 13.3 H, INR 1.21 04/16/22 13:01: WBC 4.20 L, Hgb 13.8, Hct 41.1, Plt Count 293 04/16/22 13:01: Sodium 130 L, Potassium 4.0, BUN 13, Creatinine 1.15 H, Glucose 164 H, Magnesium 1.9, Total Bilirubin 0.4, AST 23, ALT 25, Alkaline Phosphatase 79 Assessment & Plan - Problems (Diagnosis) (1) Chest pain, rule out acute myocardial infarction Current Visit: Yes Status: Acute (2) Nausea & vomiting Current Visit: Yes Status: Acute (3) Near syncope Current Visit: Yes Status: Acute - Plan 1. Serial troponins and EKG 2. Appreciate Cardiology consultation 3. Echocardiogram 4. Anti-platelet therapy, beta-lindsay, statin, and O2 as needed; holding anticoagulation secondary to coffee-ground emesis 5. IV morphine for pain 6. PPI drip 7. monitor H&H 8. Gastroenterology consultation 9. DVT prophylaxis Discharge Plan: Home Plan to discharge in: 24 Hours - Advance Directives Does patient have a Living Will: No Does patient have a Durable POA for Healthcare: Yes - Code Status/Comfort Care Code Status Assessed: Yes Code Status: Full Code Critical Care: No Time Spent Managing PTS Care (In Minutes): 45
[2022-04-17 01:53] VITALS: O2SAT 95
[2022-04-17 04:05] LABS: Absolute Lymphocytes (CBC) 1.6 K/uL (0.7-4.9); Hematocrit 37.1 % (36.0-45.0); Lymphocytes % 20.3 % (15.3-44.8); MCV 87.8 fL (80-100); MPV 9.5 fL (7.6-11.3); RBC Red Blood Cell Count 4.23 M/uL (3.86-4.86)
[2022-04-17 04:19] LABS: Troponin High Sensitivity 14.3 pg/mL (<58.9)
[2022-04-17 04:20] LABS: Potassium 3.5 mmol/L (3.5-5.1)
[2022-04-17] MEDS ORDERED: PNEUMOCOCCAL VACCINE 0.5 ML IMVAC ONE (08:00)
[2022-04-17] MEDS ORDERED: PANTOPRAZOLE 40 MG INJ IVP SCH (09:00)
[2022-04-17] MEDS ORDERED: ASPIRIN EC 81 MG TAB PO SCH (09:00)
[2022-04-17] MEDS: METOPROLOL TAR 50 MG TAB PO SCH (09:16)
[2022-04-17 12:02] VITALS: BP 97/61; TEMP 97.1
--- NOTE | 2022-04-17 15:13 | P.DS ---
Admission Date: 04/16/22 Discharge Date: 04/17/22 Disposition: ROUTINE DISCHARGE Discharge Condition: GOOD Reason for Admission: Chest pain rule out acute coronary syndrome Consultations: 1. Cardiology 2. Gastroenterology Hospital Course: DIAGNOSES: # Nausea and Vomiting suspect due to Viral Gastroenteritis # Question of Coffee-Ground Emesis # Atypical Chest Pain # Paroxysmal Atrial Fibrillation # History of Transient Ischemic Attack (2016) HOSPITAL COURSE: Ms. Nereida Bhandari is a pleasant 81 year old female with a past medical history significant for paroxysmal atrial fibrillation who was admitted to the [facility] on 04/16/2022 for nausea, vomiting, and chest discomfort. She was admitted to the medicine service. Upon further evaluation, her EKG was without STEMI criteria. Her troponin trend was 17.8 -> 17.8 -> 15.2 -> 14.3. Her chest x-ray revealed, "no acute cardiopulmonary disease." Cardiology was consulted and she was evaluated by Dr. Flores. He has cleared her for discharge with outpatient transthoracic echocardiogram and cardiac stress test. There was concern that her vomitus may have been "coffee-ground." A guaic was performed, and returned negative. Gastroenterology was consulted and I spoke with Dr. Rivera. He has cleared her for discharge given her complete resolution of symptoms and her stable hemoglobin. He advised that she present directly to his clinic post-discharge and he will formally evaluate her. These recommendations were discussed with Ms. Bhandari, who agrees to go to Dr. Rivera's clinic. On 04/17/2022, she was seen on rounds and deemed medically stable for discharge. She was discharged with instructions to schedule follow-up appointments with her PCP (Dr. Gunter), with Cardiology (Dr. Flores), and with Gastroenterology (Dr. Rivera). She was given the opportunity to ask questions and reported no further questions. Furthermore, all questions were answered to the best of my ability. A copy of this discharge summary will be sent to the above providers to facilitate continuity of care. Today, I personally spent 25 minutes on her case, of which greater than 50% of the time was spent in patient education, counseling, and coordination of care as described above. Vital Signs/Physical Exam: Temp Pulse Resp BP Pulse Ox 97.1 F 75 16 116/61 95 04/17/22 12:00 04/17/22 15:24 04/17/22 12:00 04/17/22 15:24 04/17/22 12:00 General: Alert, In no apparent distress, Oriented x3 HEENT: Atraumatic, Mucous membr. moist/pink, EOMI, Sclerae nonicteric Neck: JVD not distended Respiratory: Clear to auscultation bilaterally, Normal air movement Cardiovascular: No edema, Normal pulses, No gallops, No rubs, No murmurs, Irregular heart rate/rhythm Gastrointestinal: Normal bowel sounds, Soft and benign, Non-distended, No tenderness, No rebound, No guarding Musculoskeletal: No clubbing Integumentary: No rashes Neurological: Normal speech, Cranial nerves 3-12 intact, Normal affect Laboratory Data at Discharge: WBC 8.00 K/uL (4.3-10.9) 04/17/22 03:26 Hgb 12.5 g/dL (12.0-15.0) 04/17/22 03:26 Hct 37.1 % (36.0-45.0) 04/17/22 03:26 Plt Count 271 K/uL (152-406) 04/17/22 03:26 PT 13.3 SECONDS (9.5-12.5) H 04/16/22 13:01 INR 1.21 04/16/22 13:01 Sodium 133 mmol/L (136-145) L 04/17/22 03:26 Potassium 3.5 mmol/L (3.5-5.1) 04/17/22 03:26 BUN 14 mg/dL (7-18) 04/17/22 03:26 Creatinine 0.88 mg/dL (0.55-1.02) 04/17/22 03:26 Glucose 113 mg/dL (74-106) H 04/17/22 03:26 Magnesium 1.9 mg/dL (1.6-2.4) 04/16/22 13:01 Total Bilirubin 0.4 mg/dL (0.2-1.0) 04/16/22 13:01 AST 23 U/L (15-37) 04/16/22 13:01 ALT 25 U/L (13-56) 04/16/22 13:01 Alkaline Phosphatase 79 U/L (45-117) 04/16/22 13:01 Triglycerides 159 mg/dL (<150) H 04/17/22 03:26 Cholesterol 160 mg/dL (<200) 04/17/22 03:26 HDL Cholesterol 65 mg/dL (40-60) H 04/17/22 03:26 Cholesterol/HDL Ratio 2.46 04/17/22 03:26 Home Medications: RX: Apixaban [Eliquis *] 2.5 mg PO BID 04/16/22 RX: Ascorbic Acid [Vitamin C*] 500 mg PO DAILY 04/16/22 RX: Cyanocobalamin (Vitamin B-12) [Vitamin B-12] 500 mcg PO DAILY 04/16/22 RX: Pantoprazole [Protonix Tab*] 40 mg PO BID #60 tab 04/17/22 New Medications: RX: Pantoprazole [Protonix Tab*] 40 mg PO BID #60 tab Physician Discharge Instructions: 1. Please call and schedule a follow-up appointment with your PCP (Dr. Gunter) in 3-5 days 2. Please go directly to Dr. Rivera's office for a follow-up appointment. He is expecting your arrival. 3. Please call and schedule a follow-up appointment with Cardiology (Dr. Flores) in 5-7 days - He will schedule you for a heart ultrasound and a cardiac stress test in his clinic Diet: AHA Activity: Ad darlene Followup: Maik Gunter MD [Primary Care Provider] - Allen Flores MD [ACTIVE - CAN ADMIT] - Shawn Rivera MD [ASSOCIATE-ACTIVE - CAN ADMIT] - Time spent managing pt's care (in minutes): 25
--- NOTE | 2022-04-17 20:28 | CON ---
Date of Consultation: 04/17/2022 Reason For Consultation: Chest pain. History Of Present Illness: This 81-year-old female with questionable history of DE and pacemaker in place presented to the emergency room with chest discomfort with some nausea, mid left chest, radiat es to the left upper extremity, not related to exertion. No shortness of breath. The patient denies having any history of cardiac disease. She apparently had an episode of nausea and vomiting as well and she had coffee-ground emesis. Past Medical History: As outlined above in the HPI. Medications: Refer to reconciliation sheet for detailed list. Allergies: NO KNOWN DRUG ALLERGIES. Family History: No premature coronary artery disease or cancer. Social History: She does not smoke or drink. Does not use any drugs. Review of Systems: All systems were reviewed and they were negative. Physical Examination: Vital Signs: Temperature is 97.8, pulse 79, breathing at 17, blood pressure is 106/55, and saturatin g 95% on room air. General: A pleasant elderly female, in no apparent distress. Head And Neck: Pupils are equal and reactive to light. Intact eye movements. No JVD. No cervical lymphadenopathy. Neck is supple. Thyroid is not enlarged. Lungs: Clear to auscultation bilaterally. No rhonchi, wheezing, or crackles. No accessory muscle u se. Heart: Regular rate and rhythm. No extra sounds. Abdomen: Soft, nontender. Bowel sounds positive. No organomegaly. No masses or hernia. No rigidi ty or rebound. Extremities: No clubbing or cyanosis. Intact pulses. Skin: No rash. Neurologic: Alert, awake, and oriented x3. No acute focal deficits appreciated. Lymph Nodes: No cervical or axillary lymphadenopathy. Investigations: Four sets of cardiac enzymes are negative. BUN 14, creatinine 0.88. NT-proBNP was 787. Hemoglobin 12.5. Assessment/recommendation: 1.Chest pain. It is atypical, but due to age, further ischemia workup should be done, which we will plan for that as an outpatient. Cardiac enzymes have been negative. 2.Questionable coffee-ground emesis. Recommend to continue PPI. Her hemoglobin is stable and consu lt GI. SR/MODL Voice ID: [id number] Report ID: [id number]
[2022-04-17] MEDS ORDERED: ENOXAPARIN 100 MG/ML SYR SQ SCH (21:00)
--- NOTE | 2022-04-18 16:57 | EKG ---
Test Date: 2022-04-17 Test Time: 13:17:12 Pedodontist: MADDIE MEASUREMENT RESULTS: Intervals: Rate: 77 WV: 190 QRSD: 82 QT: 410 QTc: 463 [place]: P: 68 WV: 190 QRS: 72 T: 46 INTERPRETIVE STATEMENTS: Sinus rhythm with premature supraventricular complexes Otherwise normal ECG Compared to ECG 04/16/2022 12:45:08 Sinus tachycardia no longer present Electronically Signed On 04-18-22 16:54:47 SEO SPECIALIST by Allen Flores
--- NOTE | 2022-04-18 17:03 | EKG ---
Test Date: 2022-04-16 Test Time: 12:45:08 Oss Architect: HB MEASUREMENT RESULTS: Intervals: Rate: 104 AL: 182 QRSD: 84 QT: 362 QTc: 476 [place]: P: 74 AL: 182 QRS: 75 T: 62 INTERPRETIVE STATEMENTS: Sinus tachycardia with premature atrial complexes Possible Left atrial enlargement Borderline ECG Compared to ECG 06/15/2021 15:26:13 Atrial premature complex(es) now present Sinus rhythm no longer present Right-axis deviation no longer present Electronically Signed On 04-18-22 16:57:51 FINAL CIGAR [employer] BOX EXAMINER by Allen Flores
== END 2022-04-17 15:30 | disposition home or self-care (01) ==
LOC: ER 12:37 → ERHOLD 14:53 → 4TH 19:17
PROVIDERS: ADMIT Hospitalist; ATTEND Internal Medicine
DX: R07.9 Chest pain, unspecified (principal); R11.2 Nausea with vomiting, unspecified; R55 Syncope and collapse; I48.0 Paroxysmal atrial fibrillation; Z86.73 Personal history of transient ischemic attack (TIA), and cerebral infarction without residual deficits; Z79.01 Long term (current) use of anticoagulants; Z20.822 Contact with and (suspected) exposure to COVID-19; Z23 Encounter for immunization
CPT/HCPCS: 93005 ×2; 85025 ×2; 80048 ×2; 36415; 83735; 85610; 80061; 80076; 83986; 82271; 85018; 85014; 84484 ×4; 83880; 71045; 96375; 96374; 99285; 87811; C9113 ×4; J7050 ×2; G0378

== ENCOUNTER 2022-04-18 09:10 | Emergency (ER) | payer OTHER ==
--- OUTSIDE RECORDS SUMMARY | 2022-04-18 09:12 | XMS REPORT | Continuity of Care Document ---
:1940 Author Organization [facility] t Address [address] [place] [address] Care Team Providers Name Role Phone Franchesca-Mbayo_A_AH Attending Clinician Unavailable Franchesca-Mbayo_A_AH Admitting Clinician Unavailable Payers Payer Name Policy Type Policy Number Effective Date Expiration Date S graeme [facility] [place] - [id number] 2019 [employer] 00:00:00 (MEDICARE REPLACEMENT/ADVANT AGE - [...] 2019-05-29 Outpatient Franchesca-Mbayo VFP VFP [phone] [facility] 02:20:00 02:20:00 _A_AH [id number] Family Practic e 2019-05-29 2019-05-29 Outpatient Franchesca-Mbayo VFP VFP [phone] [facility] 02:20:00 02:20:00 _A_AH [id number] Family Practic e 2019-05-29 2019-05-29 Outpatient Franchesca-Mbayo VFP VFP [phone] [facility] 02:20:00 02:20:00 _A_AH [id number] Family Practic e 2019-05-07 2019-05-07 Outpatient Franchesca-Mbayo VFP VFP [phone] [facility] 07:15:00 07:15:00 _A_AH [id number] Family Practic e Results This patient has no known results.
[2022-04-18 09:55] LABS: Absolute Lymphocytes (CBC) 1.4 K/uL (0.7-4.9); Hematocrit 38.8 % (36.0-45.0); Lymphocytes % 19.6 % (15.3-44.8); MCV 87.5 fL (80-100); MPV 8.8 fL (7.6-11.3); RBC Red Blood Cell Count 4.44 M/uL (3.86-4.86)
[2022-04-18 10:01] LABS: Protime INR 1.01
[2022-04-18 10:13] LABS: Albumin 3.6 g/dL (3.4-5.0); Bilirubin Direct 0.2 mg/dL (0-0.2); Bilirubin Total 0.7 mg/dL (0.2-1.0); Magnesium 1.8 mg/dL (1.6-2.4); Potassium 3.9 mmol/L (3.5-5.1); Protein, Total 6.9 g/dL (6.4-8.2); Troponin High Sensitivity 20.5 pg/mL (<58.9)
--- NOTE | 2022-04-18 10:15 | RAD REPORT ---
EXAM DESCRIPTION: CT - Head Brain Wo Cont - 04/18/2022 10:05 am CLINICAL HISTORY: dizziness, difficulty walking COMPARISON: Head Brain Wo Cont dated 01/23/2016 TECHNIQUE: Axial 5 mm thick images of the head were obtained without IV contrast. All CT scans are performed using dose optimization technique as appropriate and may include automated exposure control or mA/KV adjustment according to patient size. FINDINGS: No intracranial hemorrhage, mass, edema or shift of mid-line structures. No acute cortical based infarction. No cortical edema or sulcal effacement. Mild to moderate for age atrophy changes a re present showing a mild progression from 2016. . No abnormal extra-axial fluid collections. Ventric les are in proportion to the amount of volume loss. Chronic ischemic change in the cerebral white mat ter appears to be minimal. Mastoid air cells and visualized portions of the paranasal sinuses are clear. No acute bony findings. IMPRESSION: Negative non-contrast CT head examination for acute finding. Patient has minimal chronic ischemic change in the cerebral white matter. Patient's atrophy pattern has shown mild progression from 2016. Ventricles are in proportion to the a mount of volume loss.
[2022-04-18] MEDS ORDERED: NA CHLORIDE 0.9% 500 ML ONE (10:30)
--- NOTE | 2022-04-18 10:39 | RAD REPORT ---
EXAM DESCRIPTION: RAD - Chest Single View - 04/18/2022 10:20 am CLINICAL HISTORY: DYSPNEA COMPARISON: 04/16/2022 TECHNIQUE: AP portable chest image was obtained 04/18/2022 10:20 am . FINDINGS: Chronic interstitial lung pattern is present. Lung markings are similar or less prominent than seen on the comparison 2 days earlier. No new or progressive lung parenchymal process seen. Heart and vasculature are normal. No measurable pleural effusion and no pneumothorax. No acute bony abnormality seen. No acute aortic findings. Defibrillator remains in place. IMPRESSION: No acute cardiopulmonary process. No suspicious change from comparison.
[2022-04-18 11:07] LABS: Urine Blood Negative (Negative); Urine Glucose Negative (Negative); Urine Protein Negative (Negative); Urine pH 5.5 (5.0-7.0)
[2022-04-18 11:24] LABS: Urine Bacteria None Seen /HPF (<20); Urine Mucus Slight /HPF (None Seen); Urine RBC <5 /HPF (None Seen)
--- NOTE | 2022-04-18 12:04 | EDPHYS ---
Physician Documentation [facility] Name: Nereida Bhandari Age: 81 yrs Sex: Female : 1940 Arrival Date: 04/18/2022 Time: 09:30 Bed 2 Private MD: ED Physician Mariano Martinez HPI: 04/18 09:55 This 81 yrs old Female presents to ER via EMS with complaints of generalized weakness rn and sob. 09:55 Pt reports generalized weakness and sob. . rn 10:20 Onset: The symptoms/episode began/occurred 3 day(s) ago. Severity of symptoms: At their rn worst the symptoms were moderate in the emergency department the symptoms are unchanged. The patient has not experienced similar symptoms in the past. The patient has been recently seen by a physician:. Pt recently admitted and discharged yesterday. Was admitted for for sob and generalized weakness with nausea/vomiting. Reports vomiting has stopped. Reports persistent weakness and malaise. Has f/u appt coming up with Dr. Rivera for EGD despite negative hemoccult and no blood in stool or emesis. No medication changes. Was discharged as possible gastroenteritis. . Historical: - Allergies: 09:39 No Known Allergies; jl7 - Home Meds: 09:39 Eliquis 2.5 mg oral tab 2 times per day [Active]; pantoprazole 40 mg Oral grps [Active];jl7 - PMHx: 09:39 Atrial fibrillation; jl7 - Immunization history:: Client reports receiving the 2nd dose of the Covid vaccine. - Social history:: Smoking status: Patient denies any tobacco usage or history of. - Family history:: not pertinent. - Hospitalizations: : The patient was recently seen at [facility]. ROS: 10:20 Constitutional: Negative for fever, chills, and weight loss, Eyes: Negative for injury, rn pain, redness, and discharge, Neck: Negative for injury, pain, and swelling, Cardiovascular: + palpitations Respiratory: + sob Abdomen/GI: Negative for abdominal pain, nausea, vomiting, diarrhea, and constipation, MS/Extremity: Negative for injury and deformity, Skin: Negative for injury, rash, and discoloration, Neuro: Negative for headache, numbness, tingling, and seizure. Exam: 10:20 Constitutional: This is a well developed, well nourished patient who is awake, alert, rn and in no acute distress. Head/Face: Normocephalic, atraumatic. ENT: dry MM Cardiovascular: Irregular rhythm, regular rate Respiratory: No increased work of breathing, no retractions or nasal flaring. Abdomen/GI: Soft, non-tender Skin: Warm, dry MS/ Extremity: Pulses equal, no cyanosis. Neuro: Awake and alert, GCS 15. Equal strength and sensation bilaterally. 10:24 ECG was reviewed by the Attending Physician. rn Vital Signs: 09:34 BP 162 / 99; Pulse 88; Resp 15 S; Temp 98.6(O); Pulse Ox 100% on R/A; jl7 11:10 BP 148 / 69; Pulse 103; Resp 15; Pulse Ox 99% ; jl7 11:52 BP 143 / 75; Pulse 94; Resp 20; Pulse Ox 100% on R/A; iw MDM: 09:33 [facility] 10[facility]20 External Records Reviewed: Inpatient record: Pt records indicate recent discharge after rn working diagnosis of gastroenteritis, trop neg x 4, discharged with outpt cardiology and GI. . 11:58 Differential Diagnosis dehydration, viral infection, near syncope, electrolyte rn disorder, anxiety, UTI. Data reviewed: vital signs, nurses notes, lab test result(s), EKG, radiologic studies, CT scan, plain films, and as a result, I will discharge patient. Management of patient was discussed with the following: Hospitalist: Discussed case with Dr. Yin who just discharged her yesterday, feels like patient can go home as well after our discussion and went over all results from today's visit as well as hospitalization. . Independent interpretation of the following test(s) in the Emergency Department EKG: See my EKG interpretation above X-Ray: My interpretation is CXR clear of pneumonia or pneumothorax. Care significantly affected by the following chronic conditions: Hypertension. Counseling: I had a detailed discussion with the patient and/or guardian regarding: the historical points, exam findings, and any diagnostic results supporting the discharge/admit diagnosis, lab results, radiology results, the need for outpatient follow up, to return to the emergency department if symptoms worsen or persist or if there are any questions or concerns that arise at home. Special discussion: I discussed with the patient/guardian in detail that at this point there is no indication for admission to the hospital. It is understood, however, that if the symptoms persist or worsen the patient needs to return immediately for re-evaluation. Based on the history and exam findings, there is no indication for further emergent testing or inpatient evaluation. I discussed with the patient/guardian the need to see the candy starch mold printer for further evaluation of the symptoms. I discussed with the patient/guardian the need to see the primary care provider for further evaluation of the symptoms. ED course: Pt already has EGD scheduled for tomorrow, will dc home with return precautions.. 04/18 09:37 Order name: Basic Metabolic Panel; Complete Time: 10:04/18 09:37 Order name: CBC with Diff; Complete Time: :04/18 09:37 Order name: Hepatic Function; Complete Time: 04/18 09:37 Order name: Magnesium; Complete Time: 04/18 09:37 Order name: Protime (+inr); Complete Time: :04/18 09:37 Order name: Ptt, Activated; Complete Time: 04/18 09:37 Order name: Troponin High Sensitivity; Complete Time: :04/18 09:37 Order name: CT Head Brain wo Cont; Complete Time: :04/18 09:37 Order name: Chest Single View XRAY; Complete Time: :04/18 09:37 Order name: BNP; Complete Time: :04/18 11:07 Order name: Urine Microscopic Only; Complete Time: 11:51 jl7 04/18 11:07 Order name: Urine Dipstick-Ancillary; Complete Time: 11:16 EDWV 04/18 11:09 Order name: Urine Dipstick-Ancillary EDWV 04/18 09:37 Order name: EKG; Complete Time: 09:38 rn 04/18 09:37 Order name: Cardiac monitoring; Complete Time: :43 04/18 09:37 Order name: EKG - Nurse/Tech; Complete Time: 10:00 04/18 09:37 Order name: IV Saline Lock; Complete Time: 09:45 04/18 09:37 Order name: Labs collected and sent; Complete Time: :45 04/18 09:37 Order name: O2 Per Protocol; Complete Time: :43 04/18 09:37 Order name: O2 Sat Monitoring; Complete Time: :43 rn 04/18 09:37 Order name: Urine Dipstick-Ancillary (obtain specimen); Complete Time: 11: rn EC:24 Rate is 95 beats/min. Rhythm is irregular. QRS [place] is Normal. AL interval is normal. rn QRS interval is normal. QT interval is normal. No Q waves. T waves are Normal. No ST changes noted. Clinical impression: NSR w/ Non-specific ST/T Changes. Interpreted by me. Reviewed by me. Administered Medications: 10:33 Drug: NS 0.9% 500 ml Route: IV; Rate: bolus; Site: right wrist; 11:00 Follow up: IV Status: Completed infusion; IV Intake: 500ml jl7 Disposition Summary: 04/18/22 12:04 Discharge Ordered Location: Home rn Problem: new rn Symptoms: have improved rn Condition: Stable rn Diagnosis - Dehydration rn - Muscle weakness (generalized) rn Followup: rn - With: Shawn Rivera MD - When: Tomorrow - Reason: Recheck today's complaints, Re-evaluation by your physician Discharge Instructions: - Discharge Summary Sheet rn - Dehydration, Adult rn - Weakness rn Forms: - Medication Reconciliation Form rn - Thank You Letter rn - 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
--- NOTE | 2022-04-18 12:04 | ER ---
Nurse's Notes [facility] Name: Nereida Bhandari Age: 81 yrs Sex: Female : 1940 Arrival Date: 04/18/2022 Time: 09:30 Bed 2 Private MD: Diagnosis: Dehydration;Muscle weakness (generalized) Presentation: 04/18 09:34 Chief complaint: EMS states: Toned out for SOB, dizziness, weakness, N/V. Seen here jl7 04/16/22 for same complaint, admitted to obs and discharged yesterday, followup with Miguel and scheduled for upper GI scope tomorrow. VSS, clear lung sounds, bgl 131, 20 G to right wrist. Coronavirus screen: At this time, the client does not indicate any symptoms associated with coronavirus-19. Ebola Screen: No symptoms or risks identified at this time. Initial Sepsis Screen: Does the patient meet any 2 criteria? No. Patient's initial sepsis screen is negative. Does the patient have a suspected source of infection? No. Patient's initial sepsis screen is negative. Risk Assessment: Do you want to hurt yourself or someone else? Patient reports no desire to harm self or others. Onset of symptoms is unknown. 09:34 Method Of Arrival: EMS: [facility] 09:34 Acuity: JESSE 3 [facility] 09:34 Care prior to arrival: IV initiated. 20 GA, in the right wrist, Glucose check: 131. jl7 Triage Assessment: 09:39 General: Appears in no apparent distress. uncomfortable, Behavior is cooperative, jl7 appropriate for age, anxious. Pain: Denies pain. Neuro: Level of Consciousness is awake, alert, obeys commands, Oriented to person, place, time, situation. Cardiovascular: Patient's skin is warm and dry. Respiratory: Reports shortness of breath Airway is patent Respiratory effort is even, unlabored, Respiratory pattern is regular, symmetrical. GI: Reports nausea, vomiting. Derm: Skin is pink, warm \T\ dry. Historical: - Allergies: 09:39 No Known Allergies; jl7 - Home Meds: 09:39 Eliquis 2.5 mg oral tab 2 times per day [Active]; pantoprazole 40 mg Oral grps [Active];jl7 - PMHx: 09:39 Atrial fibrillation; jl7 - Immunization history:: Client reports receiving the 2nd dose of the Covid vaccine. - Social history:: Smoking status: Patient denies any tobacco usage or history of. - Family history:: not pertinent. - Hospitalizations: : The patient was recently seen at [facility]. Screenin:32 [facility] ED Fall Risk Assessment (Adult) History of falling in the last 3 months, iw including since admission Yes- single mechanical fall (1 pt). Abuse screen: Denies threats or abuse. Denies injuries from another. Nutritional screening: No deficits noted. Tuberculosis screening: No symptoms or risk factors identified. Assessment: 11:52 Reassessment: Patient appears in no apparent distress at this time. Patient and/or iw family updated on plan of care and expected duration. Pain level reassessed. Patient is alert, oriented x 3, equal unlabored respirations, skin warm/dry/pink. Patient states feeling better. 12:32 Reassessment: Patient appears in no apparent distress at this time. Patient and/or iw family updated on plan of care and expected duration. Pain level reassessed. Patient is alert, oriented x 3, equal unlabored respirations, skin warm/dry/pink. Patient states feeling better. Patient states symptoms have improved. Vital Signs: 09:34 BP 162 / 99; Pulse 88; Resp 15 S; Temp 98.6(O); Pulse Ox 100% on R/A; jl7 11:10 BP 148 / 69; Pulse 103; Resp 15; Pulse Ox 99% ; jl7 11:52 BP 143 / 75; Pulse 94; Resp 20; Pulse Ox 100% on R/A; iw ED Course: 09:30 Patient arrived in ED. rn 09:31 Bolivar Jeffers PA is PHCP. jmm 09:32 Mariano Martinez MD is Attending Physician. jmm 09:34 Bella Hickman, RAYMUNDO is Primary Nurse. jl7 09:39 Triage completed. jl7 09:39 Arm band placed on right wrist. jl7 09:50 Initial lab(s) drawn, by ED staff, sent to lab. EKG done, by ED staff, reviewed by hardeep Martinez MD. 10:07 CT Head Brain wo Cont In Process Unspecified. EDMS 10:21 Chest Single View XRAY In Process Unspecified. EDMS 11:10 Urine collected: clean catch specimen, clear. jl7 12:04 Shawn Rivera MD is Referral Physician. rn 12:32 Patient has correct armband on for positive identification. iw 12:32 No provider procedures requiring assistance completed. IV discontinued, intact, iw bleeding controlled, No redness/swelling at site. Pressure dressing applied. Administered Medications: 10:33 Drug: NS 0.9% 500 ml Route: IV; Rate: bolus; Site: right wrist; iw 11:00 Follow up: IV Status: Completed infusion; IV Intake: 500ml jl7 Medication: 11:10 VIS not applicable for this client. jl7 Intake: 11:00 IV: 500ml; Total: 500ml. jl7 Outcome: 12:04 Discharge ordered by MD. rn 12:32 Discharged to home via wheelchair, with family. iw 12:32 Condition: good 12:32 Discharge instructions given to patient, family, Instructed on discharge instructions, follow up and referral plans. Demonstrated understanding of instructions, follow-up care. 12:33 Patient left the ED. iw Signatures: Dispatcher [employer] EDMS Bolivar Jeffers PA PA jmm Williams, Irene, RN Mariano Larios MD MD rn Leal, Jahala, RN RN jl7
[2022-04-18 12:37] VITALS: TEMP 98.6
[2022-04-18 12:39] VITALS: BP 143/75; O2SAT 100
== END 2022-04-18 12:33 | disposition home or self-care (01) ==
LOC: ER 09:10
DX: E86.0 Dehydration (principal); M62.81 Muscle weakness (generalized); I48.91 Unspecified atrial fibrillation; Z79.01 Long term (current) use of anticoagulants
CPT/HCPCS: 85025; 80048; 36415; 83735; 85610; 80076; 85730; 84484; 83880; 70450; 71045; J7040; 81003; 81015; 93005

== ENCOUNTER 2022-12-30 11:40 | Inpatient (IN) | payer OTHER ==
--- OUTSIDE RECORDS SUMMARY | 2022-12-30 11:43 | XMS REPORT | Continuity of Care Document ---
:1940 Author Organization [facility] t Address [address] [place] [address] [place] [id number] Care Team Providers Name Role Phone ZENAIDA WHITTINGTON Attending Clinician Unavailable LEO NGUYEN Attending Clinician Unavailable SUJATA CAICEDO Attending Clinician Unavailable LAB90 Attending Clinician Unavailable Franchesca-Mbayo_A_AH Attending Clinician Unavailable Franchesca-Mbayo_A_AH Admitting Clinician Unavailable Payers Payer Name Policy Type Policy Number Effective Date Expiration Date S graeme NEAL 7 [id number] 2022 PLUS 42 OA 00:00:00 [facility] [id number] 2019 [facility] 00:00:00 (MEDICARE REPLACEMENT/ADVANT AGE - HMO) Problems Condition Condition Condition Status Onset Resolution Last Treating Co mments Source Name Details Category Date Date Treatment Clinician Date Esophageal Esophageal Disease Active K horace dysphagia dysphagia 11-21 Seyb old 00:00: - 00 Externa l Gastroesop Gastroesop Disease Active K horace hageal hageal 905 Seybold reflux reflux 00:00: - disease disease 00 Externa without without l esophagiti esophagiti s s Hypercoagu Hypercoagu Disease Active K horace lable lable 303 Seybold state due state due 00:00: - to atrial to atrial 00 Exte rna fibrillati fibrillati l on on Well adult Well adult Disease Active K horace exam exam 3- Seybold 00:00: - 00 Externa l Prediabete Prediabete Disease Active K getachewy s s 05-19 Seybold 00:00: - 00 Externa l 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 3-03 Seybold 00:00: - 00 Externa l 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 Se josé miguel [place] 00:00: - malnutriti malnutriti 00 Ex terna on (multi on (multi l HCC) HCC) Hypercoagu Hypercoagu Disease Active Nadia vu lable lable 3-03 Seybold state due state due 00:00: - to atrial to atrial 00 Exte rna fibrillati fibrillati l on (multi on (multi HCC) HCC) Chronic Chronic Disease Active Amita anticoagul anticoagul 2-03 Se josé miguel ation ation 00:00: - 00 Externa l History of History of Disease Active K getachewsukumar cardiac cardiac 2-03 Seybold defibrilla defibrilla 00:00: - tor tor 00 Externa placement placement l Persistent Persistent Disease Active Nadia vu atrial atrial 2-03 Seybold fibrillati fibrillati 00:00: - on (multi on (multi 00 Exte rna HCC) HCC) l Dizziness Dizziness Disease Active Tyrell y 2-03 Seybold 00:00: - 00 Externa l Allergies, Adverse Reactions, Alerts This patient has no known allergies or adverse reactions. Social History Social Habit Start Date Stop Date Quantity Comments Source Gender identity Amita hernandezdavid - External Sexual orientation Amita Landaverde - External Alcohol intake 2022-12-20 2022-12-20 Lifetime Amita wilkins 00:00:00 00:00:00 non-drinker - External (finding) History of Social 2022-11-21 2022-11-21 Amita Seybold function 00:00:00 00:00:00 - External Tobacco use and 2022-04-21 2022-04-21 Smokeless tobacco Dameon reeves Seybold exposure 00:00:00 00:00:00 non-user - External Education 2022-04-21 2022-04-21 13 Amita Seybdavid 00:00:00 00:00:00 - External Sex [birth year] At [birth year] Amita Jacinto ybdavid 00:00:00 00:00:00 - External Smoking Status Start Date Stop Date Source Never smoked tobacco Amita Seyb old - External Medications Ordered Filled Start Stop Current Ordering Indication Dosage Frequency Signature Comments Components Source Medication Medication Date Date Medication? Clinician (SIG) Name Name Apixaban 2022-03 Yes 2.5mg Take 1 Amita 2.5 MG oral 0-04 tablet Seybol d Tablet 09:33: (2.5 mg - 50 total) by Externa mouth 2 l times daily. White 2022-03 Yes .25[in_ 0.25 Amita Petrolatum- 0-04 us] inches as Sey bold Mineral Oil 09:33: needed for - (Refresh 50 dry eyes Externa Lacri-Lube) l ophthalmic Ointment Acetaminoph 2022- No 500mg Q.25D Take 500 Amita en 500 MG 11-21-05 mg by Seybold oral 09:52: 00:00 mouth - Capsule 07 :00 every 6 Externa hours as l needed for fever Ascorbic 2022- No 100mg Take 1 Kelse y Acid 11-21-05 tablet Seybold (Vitamin C) 09:51: 00:00 (100 mg - 100 MG oral 58 :00 total) by Ext aly Tablet mouth l daily Cyanocobala 2022- No Take by Dameon reeves min 5000 11-21-05 mouth Seybold MCG oral 09:51: 00:00 - Capsule 55 :00 Externa l Polyethylen 2022- No 17g Take 17 g Amita e Glycol 11-21-05 by mouth Seybol d 3350 17 g 09:51: 00:00 daily - oral Pack 52 :00 Externa l Apixaban Yes 2.5mg Take 1 Amita 2.5 MG oral 9-05 tablet Seybol d Tablet 09:47: (2.5 mg - 22 total) by Externa mouth 2 l times daily. Omeprazole Yes [id number] 40mg Take 1 K elsey 40 MG oral 9-05 capsule Seybol d Delayed 00:00: (40 mg - Release 00 total) by Externa Capsule mouth l daily. Omeprazole Yes [id number] 40mg Take 1 K elsey 40 MG oral 9-05 capsule Seybol d Delayed 00:00: (40 mg - Release 00 total) by Externa Capsule mouth l daily. Famotidine 0 2022- No 20mg TAKE 1 Harriet ey (PEPCID) 20 10-12 TABLET BY Se ybold MG oral 00:00: 00:00 MOUTH - tablet 00 :00 EVERY Externa NIGHT AT l BEDTIME. Apixaban Yes 2.5mg Take 1 Amita 2.5 MG oral 5- tablet Seybol d Tablet 12:55: (2.5 mg - 01 total) by Externa mouth 2 l times daily Ascorbic 0 Yes 100mg Take 1 Amita Acid 5- tablet Seybold (Vitamin C) 12:55: (100 mg - 100 MG oral 01 total) by Ext aly Tablet mouth l daily Acetaminoph Yes 500mg Q.25D Take 500 Amita en 500 MG 5-01 mg by Seybold oral 12:55: mouth - Capsule 01 every 6 Externa hours as l needed for fever White Yes .25[in_ 0.25 Amita Petrolatum- 5- us] inches as Sey bold Mineral Oil 12:55: needed for - (Refresh 01 dry eyes Externa Lacri-Lube) l ophthalmic Ointment Cyanocobala Yes Take by Tyrell sey min 5000 5- mouth Seybold MCG oral 12:55: - Capsule 01 Externa l Polyethylen Yes 17g Take 17 g K elsey e Glycol 5- by mouth Seybold 3350 17 g 12:55: daily - oral Pack 01 Externa l White Yes .25[in_ 0.25 Amita Petrolatum- 5- us] inches as Sey bold Mineral Oil 12:55: needed for - (Refresh 01 dry eyes Externa Lacri-Lube) l ophthalmic Ointment Famotidine Yes 20mg Take 1 Kelse y (PEPCID) 20 5- tablet (20 Se ybold MG oral 00:00: mg total) - tablet 00 by mouth Externa every l night at bedtime Apixaban 0 Yes 2.5mg Take 2.5 Harriet ey 2.5 MG oral 3-03 mg by Seybold Tablet 09:35: mouth 2 - 42 times Externa daily l Ascorbic 2023-0 Yes 100mg Take 100 Harriet ey Acid 3-03 mg by Seybold (Vitamin C) 09:35: mouth - 100 MG oral 42 daily Externa Tablet l Ascorbic 2023-0 Yes 100mg Take 100 Harriet ey Acid 2-03 mg by Seybold (Vitamin C) 08:36: mouth - 100 MG oral 44 daily Externa Tablet l Apixaban 2023-0 Yes 2.5mg Take 2.5 Harriet ey 2.5 MG oral 2-03 mg by Seybold Tablet 08:36: mouth 2 - 22 times Externa daily l Immunizations Ordered Filled Immunization Date Status Comments [facility] e Immunization Name Name Shingles IM 2017-06-11 Completed Amita Jacintoybol d (Shingrix) 00:00:00 - External Shingles IM 2017-06-11 Completed Amita Seybol d (Shingrix) 00:00:00 - External Shingles IM 2017-06-11 Completed Amita Seybol d (Shingrix) 00:00:00 - External Shingles IM 2017-04-30 Completed Amita Seybol d (Shingrix) 00:00:00 - External Shingles IM 2017-04-30 Completed Amita Seybol d (Shingrix) 00:00:00 - External Shingles IM 2017-04-30 Completed Amita Seybol d (Shingrix) 00:00:00 - External Influenza Virus 2017-01-04 Completed Amita hernandezold Vaccine, Quad, Egg 00:00:00 - Exte rnal Free Influenza Virus 2017-01-04 Completed Amita Se ybold Vaccine, Quad, Egg 00:00:00 - Exte rnal Free Influenza Virus 2017-01-04 Completed Amita Se ybold Vaccine, Quad, Egg 00:00:00 - Exte rnal Free Influenza Virus 2017-01-04 Completed Amita Se ybold Vaccine, Quad, Egg 00:00:00 - Exte rnal Free Influenza Virus Unknown Completed Amita Se ybold Vaccine, Quad, Egg - Exte rnal Free Shingles IM Unknown Completed Amita Jacintoybol d (Shingrix) - External Shingles IM Unknown Completed Amita Seybol d (Shingrix) - External Vital Signs Vital Name Observation Time Observation Value Comments Source Systolic blood 2022-12-20 14:31:00 146 mm[Hg] Amita Seybold - pressure External Diastolic blood 2022-12-20 14:31:00 71 mm[Hg] Tyrellse y Seybold - pressure External Heart rate 2022-12-20 14:31:00 106 /min Amita Johnson eybold - External Respiratory rate 2022-12-20 14:31:00 16 /min Harriet ey Seybold - External Body height 2022-12-20 14:31:00 170.2 cm Amita Johnson eybold - External Body weight 2022-12-20 14:31:00 55.339 kg Amita Johnson eybold - External BMI 2022-12-20 14:31:00 19.11 kg/m2 Amita Johnson eybold - External Systolic blood 2022-11-21 14:46:00 128 mm[Hg] Amita Seybold - pressure External Diastolic blood 2022-11-21 14:46:00 74 mm[Hg] Wandy patino Seybold - pressure External Heart rate 2022-11-21 14:46:00 75 /min Amita Johnson eybold - External Body temperature 2022-11-21 14:46:00 36.94 Irlanda Harriet ey Seybold - External Body height 2022-11-21 14:46:00 170.2 cm Amita Johnson eybold - External Body weight 2022-11-21 14:46:00 57.607 kg Amita Johnson eybold - External BMI 2022-11-21 14:46:00 19.89 kg/m2 Amita Johnson eybold - External Oxygen saturation in 2022-11-21 14:46:00 98 /min Amita Landaverde - Arterial blood by External Pulse oximetry Diastolic blood 2022-05-19 15:35:00 78 mm[Hg] Wandy y Seybold - pressure External Heart rate 2022-05-19 15:35:00 83 /min Amita S eybold - External Body temperature 2022-05-19 15:35:00 36.83 Irlanda Harriet ey Seybold - External Respiratory rate 2022-05-19 15:35:00 14 /min Harriet ey Seybold - External Body height 2022-05-19 15:35:00 170.2 cm Amita S eybold - External Body weight 2022-05-19 15:35:00 57.153 kg Amita S eybold - External BMI 2022-05-19 15:35:00 19.73 kg/m2 Amita Johnson eybold - External Oxygen saturation in 2022-05-19 15:35:00 99 /min Amita Semaryold - Arterial blood by External Pulse oximetry Systolic blood 2022-05-19 15:35:00 128 mm[Hg] Amita Seybold - pressure External Systolic blood 2022-04-21 14:32:00 138 mm[Hg] Amita Seybold - pressure External Diastolic blood 2022-04-21 14:32:00 72 mm[Hg] Wandy y Seybold - pressure External Heart rate 2022-04-21 14:32:00 104 /min Amita Johnson eybold - External Body temperature 2022-04-21 14:32:00 36.56 Irlanda Harriet ey Seybold - External Respiratory rate 2022-04-21 14:32:00 14 /min Harriet ey Seybold - External Body height 2022-04-21 14:32:00 170.2 cm Amita Johnson eybold - External Body weight 2022-04-21 14:32:00 58.06 kg Amita Johnson eybold - External BMI 2022-04-21 14:32:00 20.05 kg/m2 Amita Johnson eybold - External Oxygen saturation in 2022-04-21 14:32:00 98 /min Amita Akhil - Arterial blood by External Pulse oximetry Procedures Procedure Date / Time Performed Performing Clinician Sour e QUANTAFLO 2022-05-19 15:44:34 Zenaida Whittington ld - External Encounters Start End Encounter Admission Attending Care Care Encounter Source Date/Time Date/Time Type Type Clinicians Facility Department ID 2023-05-22 2023-05-22 Outpatient AMITA WHITTINGTON [id number] Amtia 13:30:00 13:30:00 ZENAIDA workman 2023-01-01 2023-01-01 Outpatient AMITA FRANCISCO [id number] Amita 08:30:00 08:30:00 Seybol d 2022-12-29 2022-12-29 Outpatient PREZAS AMITA FRANCISCO [id number] Amita 00:00:00 00:00:00 ZENAIDA Seybol d 2022-12-28 2022-12-28 Outpatient PATRICK AMITA FRANCISCO [id number] Amita 00:00:00 00:00:00 LEO Seybol d 2022-12-22 2022-12-22 Outpatient AMITA CAICEDO [id number] Amita 00:00:00 00:00:00 SUJATA Seybo ld 2022-12-20 2022-12-20 Outpatient PATRICKAMITA [id number] Amita 10:15:00 10:15:00 ELO Seybol d 2022-12-20 2022-12-20 Outpatient PATRICKAMITA [id number] Amita 00:00:00 00:00:00 LEO Seybol d 2022-12-20 2022-12-20 Outpatient PATRICKAMITA [id number] Amita 00:00:00 00:00:00 LEO Seybol d 2022-12-12 2022-12-12 Outpatient PATRICKAMITA [id number] Amita 00:00:00 00:00:00 LEO Seybol d 2022-11-22 2022-11-22 Outpatient PREZASAMITA [id number] Amita 00:00:00 00:00:00 ZENAIDA Seybol d 2022-11-21 2022-11-21 Outpatient LAB90 AMITA FRANCISCO [id number] Amita 10:30:00 10:30:00 Seybol d 2022-11-21 2022-11-21 Outpatient PREZASAMITA [id number] Amita 10:00:00 10:00:00 ZENAIDA Seybol d 2022-10-12 2022-10-12 Outpatient AMITA CAICEDO [id number] Amita 00:00:00 00:00:00 SUJATA Seybo ld 2022-07-17 2022-07-17 Outpatient AMITA CAICEDO [id number] Amita 13:00:00 13:00:00 SUJATA Seybo ld 2022-05-19 2022-05-19 Outpatient PREZAS AMITA FRANCISCO [id number] Amita 09:45:00 09:45:00 ZENAIDA Seybol d 2022-04-24 2022-04-24 Outpatient PREZAElizabeth AMITA FRANCISCO [id number] Amita 00:00:00 00:00:00 ZENAIDA Seybol d 2022-04-21 2022-04-21 Outpatient LAB90 AMITA FRANCISCO [id number] Amita 09:05:00 09:05:00 Seybol d 2022-04-21 2022-04-21 Outpatient PREZAS AMITA FRANCISCO [id number] Amita 08:30:00 08:30:00 ZENAIDA Seybol d 2022-04-21 2022-04-21 Outpatient PREZAElizabeth AMITA FRANCISCO [id number] Amita 00:00:00 00:00:00 ZENAIDA Seybol d 2019-05-29 2019-05-29 Outpatient Franchesca-Mbayo VFP VFP [id number] [facility] 02:20:00 02:20:00 _A_AH [id number] Family Practic e 2019-05-29 2019-05-29 Outpatient Franchesca-Mbayo VFP VFP [id number] [facility] 02:20:00 02:20:00 _A_AH [id number] Family Practic e 2019-05-29 2019-05-29 Outpatient Franchesca-Mbayo VFP VFP [id number] [facility] 02:20:00 02:20:00 _A_AH [id number] Family Practic e 2019-05-07 2019-05-07 Outpatient Franchesca-Mbayo VFP VFP [id number] [facility] 07:15:00 07:15:00 _A_AH [id number] Family Practic e Results Test Description Test Time Test Comments Results Result Comments Source JUANA 2022-05-19 15:45:01 Test Item Value Reference Range Interpretation Comme nts Juana left side (test 1.16 See_Comment [ Automated message] The system which code = 02708-8L) generated t his result transmitted reference range : 1.40 - 0.90 NA. The reference range was not used to interpret this result as normal/abnormal . Preciouslo right side (test 1.05 See_Comment P resentation Factors: code = 64201-7B) Hypertensio nExercise Modality: At RestNormal - 1. 40 - 1.00Borderline - 0.99 - 0.90Mild - 0.89 - 0.60Moderate - 0.59 - 0.30Se zeynep - 0.29 - 0.00 [Automated mess age] The system which generated this result transmitted reference range : 1.40 - 0.90 NA. The reference range was not used to interpret this result as normal/abnormal . Amita Landaverde - External
[2022-12-30 12:13] LABS: Absolute Lymphocytes (CBC) 1.4 K/uL (0.7-4.9); Hematocrit 39.2 % (36.0-45.0); Lymphocytes % 17.8 % (15.3-44.8); MCV 87.8 fL (80-100); MPV 7.9 fL (7.6-11.3); Platelets 439 thou/uL (152-406); RBC Red Blood Cell Count 4.46 M/uL (3.86-4.86)
[2022-12-30] MEDS ORDERED: MORPHINE 4 MG/ML SYR ONE (12:20)
[2022-12-30] MEDS ORDERED: ONDANSETRON 4 MG/2 ML VIAL ONE (12:20)
[2022-12-30] MEDS ORDERED: NA CHLORIDE 0.9% 1,000 ML ONE (12:20)
[2022-12-30 12:27] LABS: Albumin 3.4 g/dL (3.4-5.0); Bilirubin Total 0.9 mg/dL (0.2-1.0); Protein, Total 7.4 g/dL (6.4-8.2)
[2022-12-30 13:16] LABS: Specific Gravity 1.012 (1.005-1.030); Urine Bacteria <20 /HPF (<20); Urine Bilirubin NEGATIVE (Negative); Urine Blood 1+ (Negative); Urine Clarity Extremely Turbid (Clear); Urine Color Light-Yellow (Yellow); Urine Glucose NEGATIVE (Negative); Urine Protein NEGATIVE (Negative); Urine Urobilinogen Normal (Normal)
--- NOTE | 2022-12-30 13:51 | RAD REPORT ---
EXAM DESCRIPTION: CT - Abdomen Pelvis W Contrast - 12/30/2022 1:32 pm CLINICAL HISTORY: Abdominal pain COMPARISON: 2014 TECHNIQUE: Computed axial tomography of the abdomen pelvis was obtained. 100 cc Isovue-300 was admin istered intravenously. Oral contrast was not requested which limits evaluation of bowel and appendix All CT scans are performed using dose optimization technique as appropriate and may include automated exposure control or mA/KV adjustment according to patient size. FINDINGS: A small to moderate hernia Liver, pancreas, adrenals and kidneys unremarkable Splenic granulomata. 1.5 centimeter splenic cyst. Gallbladder is distended. Bladder is distended. No adnexal mass. Diverticula stem from the colon without visualization diverticulitis. Compression fractures involve vertebral bodies of L1, L3 and L4. L1 compression is marked. These prob ably are old IMPRESSION: Gallbladder distention Bladder distention
--- NOTE | 2022-12-30 15:18 | RAD REPORT ---
EXAM DESCRIPTION: US - Abdomen Exam Limited - 12/30/2022 2:54 pm CLINICAL HISTORY: Abdominal pain. COMPARISON: CT abdomen December 30, 2022 FINDINGS: Multiple gallstones within the gallbladder neck. Gallbladder wall is not thickened The biliary tree is normal caliber. IMPRESSION: Cholelithiasis
--- NOTE | 2022-12-30 15:41 | ER ---
Nurse's Notes [facility] Name: Nereida Bhandari Age: 82 yrs Sex: Female : 1940 Arrival Date: 12/30/2022 Time: 11:40 Bed 3 Private MD: Diagnosis: Hypo-osmolality and hyponatremia;Abdominal pain, Generalized;Hypokalemia Presentation: 12/30 11:54 Chief complaint: Patient's son or daughter states: Vomiting since yesterday, as well as nj1 low back pain for 3 weeks, going to chiropractor for it. Coronavirus screen: Vaccine status: Patient reports receiving the 2nd dose of the covid vaccine. Ebola Screen: Patient denies travel to an Ebola-affected area in the 21 days before illness onset. Initial Sepsis Screen: Does the patient meet any 2 criteria? No. Patient's initial sepsis screen is negative. Does the patient have a suspected source of infection? No. Patient's initial sepsis screen is negative. Risk Assessment: Do you want to hurt yourself or someone else? Patient reports no desire to harm self or others. Onset of symptoms was December 29, 2022. 11:54 Method Of Arrival: Wheelchair nj1 11:54 Acuity: JESSE 3 nj1 Historical: - Allergies: 11:56 No Known Allergies; nj1 - Home Meds: 11:56 Eliquis oral [Active]; nj1 - PMHx: 11:56 Atrial fibrillation; nj1 - PSHx: 11:56 hernia repair; nj1 - Immunization history:: Client reports receiving the 2nd dose of the Covid vaccine. - Social history:: Smoking status: Patient denies any tobacco usage or history of. Screenin:19 [facility] ED Fall Risk Assessment (Adult) History of falling in the last 3 months, me1 including since admission No falls in past 3 months (0 pts) Confusion or Disorientation No (0 pts) Intoxicated or Sedated No (0 pts) Impaired Gait No (0 pts) Mobility Assist Device Used No (0 pt) Altered Elimination No (0 pt) Score/Fall Risk Level 0 - 2 = Low Risk. Abuse screen: Denies threats or abuse. Nutritional screening: No deficits noted. Tuberculosis screening: No symptoms or risk factors identified. Assessment: 12:19 General: Appears uncomfortable, well groomed, well developed, well nourished, Behavior me1 is calm, cooperative, appropriate for age, Reports vomiting since yesterday and lower back pain for past 3 weeks. Reports she has been seeing the chiropractor for the back pain with no relief. Pain: Complains of pain in lumbar area Pain does not radiate. Pain currently is 9 out of 10 on a pain scale. Quality of pain is described as gnawing, Pain began 3 weeks ago. Is continuous. Neuro: Level of Consciousness is awake, alert, obeys commands, Oriented to person, place, time, situation, Appropriate for age. Cardiovascular: Capillary refill < 3 seconds Patient's skin is warm and dry. Respiratory: Airway is patent Respiratory effort is even, unlabored, Respiratory pattern is. GI: Abdomen is flat, Reports nausea, vomiting, since yesterday. Musculoskeletal: Reports pain in lumbar area since 3 weeks ago.. Vital Signs: 11:54 BP 198 / 106; Pulse 85; Resp 18; Temp 97.6(O); Pulse Ox 100% on R/A; Weight 56.7 kg; nj1 Height 5 ft. 7 in. ; 14:37 BP 175 / 100; Pulse 98; Resp 17; Pulse Ox 100% on R/A; me1 16:53 BP 154 / 88; Pulse 96; Resp 18; Pulse Ox 97% on R/A; me1 17:29 BP 159 / 91; Pulse 97; Resp 15; Pulse Ox 95% on R/A; me1 11:54 Body Mass Index 19.58 (56.70 kg, 170.18 cm) [facility] ED Course: 11:44 Patient arrived in ED. mg5 11:45 Joseph Youngblood MD is Attending Physician. ec2 11:56 Triage completed. nj1 11:57 Arm band placed on. nj1 12:05 Yuil Gold, RAYMUNDO is Primary Nurse. me1 12:05 Inserted saline lock: 22 gauge in right antecubital area, using aseptic technique. me1 12:06 CBC with Diff Sent. me1 12:06 CMP Sent. me1 12:06 Lipase Sent. me1 12:19 Patient has correct armband on for positive identification. Bed in low position. Call [facility] light in reach. Side rails up X2. Provided Education on: POC. Verbalized understanding. . 12:19 No provider procedures requiring assistance completed. me1 13:09 Urinalysis w/ reflexes Sent. me1 13:34 CT Abd/Pelvis - IV Contrast Only In Process Unspecified. EDMS 14:56 US Abdomen Limited In Process Unspecified. EDMS 15:40 Keron Yin MD is Hospitalizing Provider. ec2 Administered Medications: 12:13 Drug: NS 0.9% IV 1000 ml IV at 1 bolus Per protocol; 1000 mL bolus Route: IV; Rate: 1 me1 bolus; Site: right antecubital; 13:09 Follow up: IV Status: Completed infusion me1 12:13 Drug: Ondansetron IVP 4 mg IVP once; over 2 minutes Route: IVP; Site: right antecubital;me1 13:10 Follow up: Response: No adverse reaction; Nausea is decreased me1 12:13 Drug: morphine IVP or IV 4 mg IVP once over 4 mins Route: IVP; Infused Over: 4 mins; me1 Site: right antecubital; 13:10 Follow up: Response: No adverse reaction; Pain is unchanged, physician notified me1 16:40 Drug: fentaNYL (PF) IVP 25 mcg IVP once Route: IVP; Site: right antecubital; me1 16:53 Follow up: Response: No adverse reaction; Pain is decreased me1 Medication: 12:19 VIS not applicable for this client. me1 Outcome: 15:40 Decision to Hospitalize by Provider. ec2 17:00 Admitted to Med/surg accompanied by tech, via wheelchair, room 210, with chart, Report me1 called to RAYMUNDO Viramontes 17:00 Condition: stable 17:00 Instructed on the need for admit, 18:33 Patient left the ED. me1 Signatures: Dispatcher [employer] EDAnabela Yang RN RN nj1 Yuli Gold RN RN me1 Madelyn De Jesus mg5 Joseph Youngblood MD MD ec2
--- NOTE | 2022-12-30 15:41 | EDPHYS ---
Physician Documentation [facility] Name: Nereida Bhandari Age: 82 yrs Sex: Female : 1940 Arrival Date: 12/30/2022 Time: 11:40 Bed 3 Private MD: ED Physician Joseph Youngblood HPI: 12/30 12:13 This 82 yrs old Female presents to ER via Wheelchair with complaints of Low ec2 Back Pain, Vomiting, Abdominal Pain. 12:13 Patient arrives today due to concern for generalized abdominal pain with associated ec2 nausea and vomiting. Patient reports that she has been having several days of nausea and vomiting with associated abdominal pain. States that she had decreased p.o. intake over the course of the day. Patient reports no urinary problems. Patient reports previous lower back pain that has been ongoing for several weeks to months, had been seen by chiropractor in the past.. Historical: - Allergies: 11:56 No Known Allergies; nj1 - Home Meds: 11:56 Eliquis oral [Active]; nj1 - PMHx: 11:56 Atrial fibrillation; nj1 - PSHx: 11:56 hernia repair; nj1 - Immunization history:: Client reports receiving the 2nd dose of the Covid vaccine. - Social history:: Smoking status: Patient denies any tobacco usage or history of. ROS: 12:13 Abdomen/GI: Positive for abdominal pain, nausea, vomiting. ec2 Exam: 12:13 Constitutional: PHYSICAL EXAMINATION: GENERAL: No acute distress HEENT: Extraocular ec2 motions intact CV: Regular rate LUNGS: No respiratory distress ABDOMEN: Nondistended, soft, tender diffusely, no guarding, not rigid SKIN: No rash NEUROLOGIC: Moves all extremities equally Vital Signs: 11:54 BP 198 / 106; Pulse 85; Resp 18; Temp 97.6(O); Pulse Ox 100% on R/A; Weight 56.7 kg; nj1 Height 5 ft. 7 in. ; 14:37 BP 175 / 100; Pulse 98; Resp 17; Pulse Ox 100% on R/A; me1 16:53 BP 154 / 88; Pulse 96; Resp 18; Pulse Ox 97% on R/A; me1 17:29 BP 159 / 91; Pulse 97; Resp 15; Pulse Ox 95% on R/A; me1 11:54 Body Mass Index 19.58 (56.70 kg, 170.18 cm) nj1 MDM: 11:46 Patient medically screened. ec2 12:13 ED course: Patient arrives today due to concern for abdominal pain associated with ec2 lower back pain and nausea and vomiting. Examination remarkable for abdominal findings as noted above. Will obtain lab work, CT abdomen pelvis and treat the patient's symptoms with morphine, crystalloid, Zofran. Currently consider process such as intra-abdominal infection, urinary tract infection, pancreatitis.. 15:28 ED course: Ultrasound shows multiple gallstones without gallbladder wall thickening. ec2 Clinically patient has diffuse abdominal pain, low suspicion for possible cholecystitis. Ultimately patient with hyponatremia and requires admission for this. Patient is not symptomatic otherwise.. 15:36 ED course: Discussed case with hospitalist who agrees to accept patient for admission.. ec2 15:40 ED course: Critical care time of 30 minutes for hyponatremia with potential for ec2 life-threatening arrhythmia.. 15:42 Data reviewed: vital signs. ec2 12/30 11:54 Order name: CBC with Diff; Complete Time: 13:21 ec2 12/30 11:54 Order name: CMP; Complete Time: 13:21 ec2 12/30 11:54 Order name: Lipase; Complete Time: 13:21 ec2 12/30 11:54 Order name: Urinalysis w/ reflexes; Complete Time: 13:21 ec2 12/30 16:16 Order name: Basic Metabolic Panel EDMS 12/30 16:16 Order name: Basic Metabolic Panel EDMS 12/30 16:16 Order name: Basic Metabolic Panel EDMS 12/30 16:16 Order name: Basic Metabolic Panel EDMS 12/30 16:16 Order name: CBC with Automated Diff EDMS 12/30 16:16 Order name: CBC with Automated Diff EDMS 12/30 16:16 Order name: CBC with Automated Diff EDMS 12/30 16:16 Order name: CBC with Automated Diff EDMS 12/30 16:16 Order name: Lipid Profile EDMS 12/30 16:16 Order name: Lipid Profile EDMS 12/30 16:16 Order name: Magnesium EDMS 12/30 16:16 Order name: Magnesium EDMS 12/30 16:16 Order name: Magnesium EDMS 12/30 16:16 Order name: Magnesium EDMS 12/30 16:16 Order name: Phosphorus EDMS 12/30 16:16 Order name: Phosphorus EDMS 12/30 16:16 Order name: Phosphorus EDMS 12/30 16:16 Order name: Phosphorus EDMS 12/30 11:54 Order name: CT Abd/Pelvis - IV Contrast Only; Complete Time: 14:18 ec2 12/30 14:19 Order name: US Abdomen Limited; Complete Time: 15:28 ec2 12/30 11:55 Order name: EKG; Complete Time: 11:57 ec2 12/30 16:15 Order name: CONS Physician Consult EDMS 12/30 16:28 Order name: CONS Physician Consult EDMS 12/30 11:54 Order name: IV Saline Lock; Complete Time: 12:05 ec2 12/30 11:54 Order name: Labs collected and sent; Complete Time: 12:05 ec2 Administered Medications: 12:13 Drug: NS 0.9% IV 1000 ml IV at 1 bolus Per protocol; 1000 mL bolus Route: IV; Rate: 1 me1 bolus; Site: right antecubital; 13:09 Follow up: IV Status: Completed infusion me1 12:13 Drug: Ondansetron IVP 4 mg IVP once; over 2 minutes Route: IVP; Site: right antecubital;me1 13:10 Follow up: Response: No adverse reaction; Nausea is decreased me1 12:13 Drug: morphine IVP or IV 4 mg IVP once over 4 mins Route: IVP; Infused Over: 4 mins; me1 Site: right antecubital; 13:10 Follow up: Response: No adverse reaction; Pain is unchanged, physician notified me1 16:40 Drug: fentaNYL (PF) IVP 25 mcg IVP once Route: IVP; Site: right antecubital; me1 16:53 Follow up: Response: No adverse reaction; Pain is decreased me1 Disposition Summary: 12/30/22 15:40 Hospitalization Ordered Notes: Hospitalization Status: Inpatient Admission ec2 Provider: Keron Yin ec2 Location: Telemetry/[facility] (Inpatient) ec2 Condition: Stable ec2 Problem: new ec2 Symptoms: are unchanged ec2 Bed/Room Type: Standard ec2 Room Assignment: 210(12/30/22 16:48) ja1 Diagnosis - Hypo-osmolality and hyponatremia ec2 - Abdominal pain, Generalized ec2 - Hypokalemia ec2 Forms: - Medication Reconciliation Form ec2 - SBAR form ec2 - Leadership Thank You Letter ec2 Signatures: Dispatcher [employer] Alexandro Patel RN RN ja1 Anabela Dai RN RN nj1 Yuli Gold RN RN me1 Joseph Youngblood MD MD ec2 Corrections: (The following items were deleted from the chart) 16:48 15:40 ec2 ja1
[2022-12-30] MEDS ORDERED: MORPHINE 2 MG/ML SYR IV PRN (16:21)
--- NOTE | 2022-12-30 16:36 | P.HP ---
Certification for Inpatient With expected LOS: <2 Midnights <Damien Tapia - Last Filed: 12/30/22 18:25> Patient History Date of Service: 12/30/22 Reason for admission: Abdominal pain, back pain, cholecystitis History of Present Illness: Ms. Thony Jensen 82-year-old female with history of of Paroxysmal Atrial fibrillation presented to the ER with the complaints of abdominal pain, nausea vomiting and back pain. Patient's son is helping with the history. Patient reports the pain started almost 3 days ago, patient has been taking Tylenol multiple times. Not able to eat anything due to nausea and vomiting. Patient denies fever chills or weight loss. Patient denies chest pain palpitation or shortness of breath. ED course vital signs; BP 198/106, pulse 85, respiration 18, temperature 97.6, pulse ox 100% on room air. Patient reports her pain has been 8/10. Patient's pain received morphine for pain, Zofran for nausea. Ultrasound shows multiple gallstones without gallbladder thickening. Clinically patient has diffuse abdominal pain. Laboratory reports significant for platelet count 439, sodium 125, potassium 3, chloride 92, urine test shows extremely turbid urine with a trace of ketone, 1+ blood. Planning to admit the patient with a diagnosis of hyperosmolality and hyponatremia, abdominal pain, hypokalemia Home medications list reviewed: Yes - Past Medical/Surgical History Has patient received pneumonia vaccine in the past: Yes Diabetic: Yes -: pacemaker turned off July 18, 2013 -: [place] -: Diverticulitis -: Glaucoma -: pacemaker - Social History Alcohol use: No CD- Drugs: No Caffeine use: Yes <Damien Tapia - Last Filed: 12/30/22 18:25> Date of Service: 12/31/22 <Keron Yin - Last Filed: 12/31/22 15:23> Allergies No Known Drug Allergies Allergy (Verified 04/16/22 20:17) Unknown Home Medications: Apixaban [Eliquis *] 2.5 mg PO BID 04/16/22 Ascorbic Acid [Vitamin C*] 500 mg PO DAILY 04/16/22 Review of Systems General: Weakness Eyes: Unremarkable ENT: Unremarkable Respiratory: Unremarkable Cardiovascular: Other (History of chronic A-fib rate control) Gastrointestinal: Nausea, Vomiting, Abdominal Pain, Other (Radiating to the back, chronic back pain) Genitourinary: Unremarkable Musculoskeletal: Atrophy, Back Pain Integumentary: Unremarkable Neurological: Other (Generalized weakness) <Damien Tapia - Last Filed: 12/30/22 18:25> Physical Examination - Physical Exam General: Alert, Oriented x3 HEENT: Atraumatic, Normocephalic, PERRLA Neck: Supple, 2+ carotid pulse no bruit, JVD not distended Respiratory: Clear to auscultation bilaterally Cardiovascular: Normal pulses, Normal S1 S2, Irregular heart rate/rhythm Capillary refill: <2 Seconds Gastrointestinal: Normal bowel sounds, Non-distended, No ascites, No tenderness, No masses, Tenderness Musculoskeletal: No clubbing, No swelling, No contractures, No erythema, No tend erness, No warmth Integumentary: No rashes, No breakdown, No significant lesion, No tenderness/swelling, No erythema, No warmth, No cyanosis Neurological: Normal speech, Normal strength at 5/5 x4 extr, Normal tone, Sensation intact, Cranial nerves 3-12 intact, Normal reflexes 2+ - Studies Laboratory Data (last 24 hrs) 12/30/22 12/30/22 12:03 12:03 WBC 7.90 Hgb 13.5 Hct 39.2 Plt Count 439 H Sodium 125 L Potassium 3.0 L BUN 13 Creatinine 0.83 Glucose 120 H Total Bilirubin 0.9 AST 22 ALT 29 Alkaline Phosphatase 199 H Lipase 21 <TapiaDamien - Last Filed: 12/30/22 18:25> Assessment and Plan - Plan Assessment and plan Hyponatremia Hypokalemia Abdominal pain Cholecystitis Hypertension Chronic Atrial Fibrillation Assessment and plan Hyponatremia * Admission sodium 125, patient is alert and oriented, diet looking elderly female * Son reports that patient is not eating well for last 3 days * Started on normal saline 100 mL/h IV hydration * Will continue to monitor sodium levels Hypokalemia * Acute serum potassium is 3.0, will replace potassium as per the hospital electrolyte protocol * Admitting the patient to the floor * Trend electrolyte * 's electrolytes as per protocol Abdominal pain Nausea and vomiting Cholecystitis * Abdominal pain for last 3 days, associated with nausea and vomiting * Will admit the patient and start on IV fluid * Antiemetic Zofran 4 mg IV push every 6 hours as needed for nausea vomiting * Abdominal ultrasound shows multiple gallstones without gallbladder thickening * Dr. Everett consulted, discussed about the patient. Recommended to hold Eliquis and start on Lovenox if agreed by the cardiology. Hypertension * Blood pressure is staying high for the last 3 days as per the son, * Patient did not take any antihypertensive at home * This may be due to increased pain * We will treat the pain and watch for her blood pressure * Hydralazine 10 mg IV as needed for blood pressure sustained above 160 over 90 mmHg * Continue to monitor electrolytes Chronic Atrial Fibrillation * Son reports patient is taking Eliquis for more than 5 years for atrial fibrillation * It has been controlled * Patient denies chest palpitation or discomfort * Consulted Dr. Flores for management of atrial fibrillation and for surgical clearance if surgical intervention is needed CODE STATUS Full code DVT prophylaxis SCDs Diet n.p.o. for now Discharge Plan: Home Plan to discharge in: 72 Hours - Advance Directives Does patient have a Living Will: No Does patient have a Durable POA for Healthcare: Yes - Code Status/Comfort Care Code Status Assessed: Yes (Full code) Code Status: Full Code Physician Review: Patient Assessed, Agree with Above Assessment and Plan Critical Care: No Time Spent Managing Pts Care (In Minutes): 55 (minutes) <Damien Tapia - Last Filed: 12/30/22 18:25> Physician Review Additional Text: Clinically, she does not have cholecystitis. Her pain appears to be secondary to lumbar spine soreness from compression fractures. Please remove cholecystitis from the diagnosis list. <Keron Yin - Last Filed: 12/31/22 15:23>
[2022-12-30] MEDS ORDERED: FENTANYL CITR 100 MCG/2 ML ONE (16:49)
[2022-12-30] MEDS ORDERED: PIPER TAZO 3.375 GM in NA CHLORIDE 0.9% 100 ML IV SCH (19:24)
[2022-12-30 19:35] LABS: Hematocrit 38.1 % (36.0-45.0); Lymphocytes % 9.7 % (15.3-44.8); MCV 87.3 fL (80-100); MPV 7.8 fL (7.6-11.3); Platelets 411 thou/uL (152-406); RBC Red Blood Cell Count 4.37 M/uL (3.86-4.86)
[2022-12-30 19:43] LABS: Magnesium 1.8 mg/dL (1.6-2.4); Phosphorus 2.8 mg/dL (2.5-4.9); Potassium 3.2 mEq/L (3.5-5.1)
[2022-12-30] MEDS: NA CHLORIDE 0.9% 1,000 ML IV SCH (22:02)
[2022-12-30] MEDS: PIPER TAZO 3.375 GM in NA CHLORIDE 0.9% 100 ML IV SCH (22:07)
[2022-12-30] MEDS ORDERED: NA CHLORIDE 0.9% 100 ML ONE (22:24)
[2022-12-31] MEDS ORDERED: METOPROLOL TARTRATE 5 MG/5 ML INJ IV STA (01:00)
[2022-12-31] MEDS: PIPER TAZO 3.375 GM in NA CHLORIDE 0.9% 100 ML IV SCH ×3 (01:39→17:52)
[2022-12-31 02:52] VITALS: BMI 19.5
[2022-12-31] MEDS: ONDANSETRON 4 MG/2 ML VIAL IV PRN ×4 (04:13→20:59)
[2022-12-31] MEDS: NA CHLORIDE 0.9% 1,000 ML IV SCH ×2 (04:14→13:06)
[2022-12-31] MEDS: HYDRALAZINE HCL 20 MG/ML VIAL IV PRN (04:43)
[2022-12-31 08:55] LABS: Potassium 3.1 mEq/L (3.5-5.1)
[2022-12-31] MEDS: ENOXAPARIN 60 MG/0.6 ML SQ SCH ×2 (09:38→21:00)
[2022-12-31] MEDS: PANTOPRAZOLE 40 MG INJ IVP SCH (09:39)
[2022-12-31] MEDS ORDERED: POTASSIUM CL SA 10 MEQ TAB PO ONE (12:52)
[2022-12-31] MEDS ORDERED: MAGNESIUM SULFATE 1 gm IVPB 1 GM/100 ML BAG IV ONE (12:54)
--- NOTE | 2022-12-31 13:26 | CON ---
Date of Consultation: 12/31/2022 Reason For Consultation: Cholelithiasis with possible cholecystitis. History Of Present Illness: The patient is an 82-year-old female with multiple medical problems, who presents with a 3-day history of back pain and questionable abdominal pain. She has no postprandial pain. The patient has no nausea, vomiting, bloating, belching, or heartburn. The patient denies so re throat, runny nose, cough, headaches, or dizziness. The patient denies chest pain, fever, or chil ls. No diarrhea, constipation, or blood in her stool. No dysuria or hematuria. Pain is in the back . Review of Systems: Otherwise unremarkable. Past Medical History: Paroxysmal atrial fibrillation, diabetes type 2, [place], diverticulitis, glaucoma. Past Surgical History: Pacemaker. Allergies: NO ALLERGIES. Social History: The patient does not smoke or drink alcohol. Family History: Noncontributory. Physical Examination: Vital Signs: Stable. She is afebrile. General: She is awake, alert. Head and Neck: No masses. Chest: Clear. Heart: S1, S2. Abdomen: Soft, nondistended, nontender. Positive bowel sounds. No evidence of peritonitis. Extremities: Adequately perfused, nontender. Neuro: Nonfocal. There is some tenderness in the lower back. Laboratory Data: White count is normal. There is a slight left shift. Platelets are slightly eleva pastora at 411. Alkaline phosphatase is slightly elevated to 199. AST and ALT and lipase are within nor mal limits. The patient's sodium was 125 on admission. It has improved to 131. Abdominal and pelvi c CT show gallbladder distention, but no evidence of acute cholecystitis. Ultrasound of the abdomen shows multiple gallstones within the gallbladder neck. Gallbladder wall is not thickened. Impressio n is cholelithiasis. Assessment: An 82-year-old female with multiple medical problems with essentially back pain and if l ower back side, I do not think it is related to the gallstones; however, the patient needs her sodium corrected and she will be evaluated by Dr. Valderrama and back pain workup will be done as well and sh ould there be concern for ongoing issue with the gallbladder, I would recommend that we get a HIDA sc an to rule out acute cholecystitis, but clinically the patient at this time does not have acute julito cystitis. We will follow this patient while in the hospital. SIDRA/KAT Voice ID: [id number] Report ID: [id number]
[2022-12-31] MEDS ORDERED: HYDROMORPHONE HCL 1 MG/ML INJ IV ONE (13:38)
[2022-12-31] MEDS: LIDOCAINE 4% PATCH TOP SCH (14:29)
--- NOTE | 2022-12-31 14:45 | P.PN ---
Subjective Date of Service: 12/31/22 Chief Complaint: Abdominal pain, back pain, cholecystitis No acute events overnight. She reports significant lower back pain. She reports persistent nausea and vomiting. She denies any fevers, chills, chest pain, or shortness of breath. Review of Systems 10-point ROS is otherwise unremarkable Gastrointestinal: Nausea, Vomiting Musculoskeletal: Back Pain Physical Examination - Vital Signs Temperature: 97.5 F Blood Pressure: 147/72 Pulse: 106 Respirations: 14 Pulse Ox (%): 96 - Physical Exam General: Alert, In no apparent distress, Oriented x3 HEENT: Atraumatic, Mucous membr. moist/pink, Sclerae nonicteric Neck: JVD not distended Respiratory: Clear to auscultation bilaterally, Normal air movement Cardiovascular: No edema, Regular rate/rhythm, Normal S1 S2, No gallops, No rubs, No murmurs Gastrointestinal: Normal bowel sounds, Soft and benign, Non-distended, No tenderness, No rebound, No guarding Musculoskeletal: Tenderness (significant lumbar spine tenderness) Integumentary: No rashes Neurological: Normal speech, Normal affect Assessment And Plan - Plan # Intractable Nausea and Vomiting suspect due to Severe Lumbar Spine Pain # L1, L3, L4 Compression Fractures # Cholelithiasis - Radiology: - CT abdomen/pelvis = "gallbladder distention. Bladder distention." - US abdomen = "Cholelithiasis" - Management plan: - Her symptoms appear to be due to severe back pain rather than abdominal pain - Given cholelithiasis with gallbladder distention, consulted General Surgery - Spoke with Dr. Everett, who recommended no surgical intervention at this time - As needed pain medication + anti-emetics - Requested bladder scan - Advance diet as tolerated # Likely Hypovolemic Hyponatremia due to Vomiting # Hypokalemia due to Vomiting - Nephrology consulted - recommendations appreciated - Continue Normal Saline - Serial Na levels: 125 -> 129 -> 131 # Paroxysmal Atrial Fibrillation s/p PPM # History of Transient Ischemic Attack (2016) - Switch home apixaban to enoxaparin while hospitalized Keron Yin M.D.
[2022-12-31 16:34] LABS: Magnesium 2.2 mg/dL (1.6-2.4); Phosphorus 1.8 mg/dL (2.5-4.9); Potassium 3.5 mEq/L (3.5-5.1)
[2022-12-31] MEDS: METOPROLOL TAR 25 MG TAB PO SCH (17:54)
[2023-01-01] MEDS: PIPER TAZO 3.375 GM in NA CHLORIDE 0.9% 100 ML IV SCH ×3 (00:19→16:50)
[2023-01-01] MEDS: NA CHLORIDE 0.9% 1,000 ML IV SCH ×3 (00:19→19:00)
--- NOTE | 2023-01-01 05:13 | P.PN ---
Date of Service: 01/01/23 Subjective: Patient is doing little bit better. Minimal abdominal complaints. Spoke to surgery and no further surgical intervention needed. Physical Exam: Vitals: reviewed GEN: Alert, oriented, NAD CV: Regular rate & rhythm, MATTHIAS II/ Pulm: Nonlabored respiraitons, clear bilaterally ABD: Soft, nontender, nondistended MSK: significant lumbar spine tenderness Neuro: No focal deficits Problem List: -Intractable Nausea and Vomiting suspect due to Severe Lumbar Spine Pain -L1, L3, L4 Compression Fractures -Cholelithiasis without cholecystitis -Likely Hypovolemic Hyponatremia due to Vomiting -Hypokalemia due to Vomiting -Paroxysmal Atrial Fibrillation s/p PPM -History of TIA (2015) -Severe mitral stenosis; TR; severe pulmonary hypertension Plan: -CT abdomen/pelvis(12/30): gallbladder distention. cholecystitis/cholelithiasis -symptoms appear to be due to severe back pain rather than abdominal pain -General surgery consulted -Dr. Everett recommending medical management for now; monitor clinical status -Continue with cardiac status -Advance diet as tolerated -Nephrology consulted -Continue IV fluids -Continue home medications as appropriate -Switch home apixaban to enoxaparin while hospitalized -Strict BP control
[2023-01-01] MEDS: METOPROLOL TAR 25 MG TAB PO SCH ×2 (06:25→17:28)
[2023-01-01] MEDS: HYDROMORPHONE HCL 0.5 MG/0.5 ML INJ IV PRN ×2 (08:30→17:28)
[2023-01-01] MEDS: ENOXAPARIN 60 MG/0.6 ML SQ SCH ×2 (08:31→20:16)
[2023-01-01] MEDS: PANTOPRAZOLE 40 MG INJ IVP SCH (08:31)
[2023-01-01] MEDS: SODIUM CHLORIDE 0.9% 10ML INJ IV PRN (08:32)
[2023-01-01] MEDS: LIDOCAINE 4% PATCH TOP SCH (09:00)
[2023-01-01] MEDS ORDERED: POTASSIUM PHOS IN 0.9 % NACL 15 MMOL/250 ML BAG IV ONE (12:00)
[2023-01-01 13:01] LABS: Absolute Lymphocytes (CBC) 1.1 K/uL (0.7-4.9); Hematocrit 32.3 % (36.0-45.0); Lymphocytes % 15.1 % (15.3-44.8); MCV 87.9 fL (80-100); MPV 7.6 fL (7.6-11.3); Platelets 354 thou/uL (152-406); RBC Red Blood Cell Count 3.67 M/uL (3.86-4.86)
[2023-01-01 13:22] LABS: Albumin 2.6 g/dL (3.4-5.0); Bilirubin Total 0.8 mg/dL (0.2-1.0); Phosphorus 2.8 mg/dL (2.5-4.9); Potassium 3.5 mEq/L (3.5-5.1); Protein, Total 5.8 g/dL (6.4-8.2); Uric Acid 2.1 mg/dL (2.6-6.0)
--- NOTE | 2023-01-01 14:07 | PN ---
Date of Progress Note: 01/01/2023 Subjective: Patient is awake, alert. Denies any abdominal pain. No nausea or vomiting. Her back p ain is better as well. Objective: Vital Signs: Stable. She is afebrile. Laboratory Data: Reviewed. White count is normal with slight left shift. Chemistry reviewed. Her sodium is up to 130, phosphorus is 1.8. Assessment: Back pain, hyponatremia, and cholelithiasis. Recommendations: Continue medical management of the hyponatremia as well as workup for the back pain . As far as cholelithiasis is concerned, I do not believe patient has acute cholecystitis at this ti me as she is tolerating diet. I would just continue to monitor that and continue treating with antib iotics while she is in the hospital. Should her symptoms be more definitive with pain in the right u pper quadrant epigastric region with nausea and vomiting, bloating, belching and heartburn, then I wo uld consider possibly doing a HIDA scan at that time. At this time, however, medical management abhijeet rodrigues suffice and there is no indication for any acute surgical intervention. /MODL Voice ID: [id number] Report ID: [id number]
[2023-01-01 14:53] LABS: Blood Morphology Comment NOT SEEN (NOT SEEN); Platelet Estimate ADEQ
--- NOTE | 2023-01-01 21:18 | P.CNS ---
Date of Consult: 01/01/23 Reason for Consult: Hyponatremia Requesting Physician: Kameron Arcos Chief Complaint: Abdominal pain, back pain, cholecystitis History of Present Illness: Ms. Thony Jensen 82-year-old female with history of of Paroxysmal Atrial fibrillation presented to the ER with the complaints of abdominal pain, nausea vomiting and back pain. Patient's son is helping with the history. Patient reports the pain started almost 3 days ago, patient has been taking Tylenol multiple times. Not able to eat anything due to nausea and vomiting. Patient denies fever chills or weight loss. Patient denies chest pain palpitation or shortness of breath. ED course vital signs; BP 198/106, pulse 85, respiration 18, temperature 97.6, pulse ox 100% on room air. Patient reports her pain has been 8/10. Patient's pain received morphine for pain, Zofran for nausea. Ultrasound shows multiple gallstones without gallbladder thickening. Clinically patient has diffuse abdominal pain. Laboratory reports significant for platelet count 439, sodium 125, potassium 3, chloride 92, urine test shows extremely turbid urine with a trace of ketone, 1+ blood. Planning to admit the patient with a diagnosis of hyperosmolality and hyponatremia, abdominal pain, hypokalemia [id number] 12:13 This 82 yrs old Female presents to ER via Wheelchair with complaints of Low ec2 Back Pain, Vomiting, Abdominal Pain. 12:13 Patient arrives today due to concern for generalized abdominal pain with associated ec2 nausea and vomiting. Patient reports that she has been having several days of nausea and vomiting with associated abdominal pain. States that she had decreased p.o. intake over the course of the day. Patient reports no urinary problems. Patient reports previous lower back pain that has been ongoing for several weeks to months, had been seen by chiropractor in the past. Allergies No Known Drug Allergies Allergy (Verified 04/16/22 20:17) Unknown Home medications list reviewed: Yes Home Medications: Apixaban [Eliquis *] 2.5 mg PO BID 04/16/22 Ascorbic Acid [Vitamin C*] 500 mg PO DAILY 04/16/22 - Past Medical/Surgical History Diabetic: Yes -: pacemaker turned off July 18, 2013 -: [place] -: Diverticulitis -: Glaucoma -: pacemaker - Social History Alcohol use: No CD- Drugs: No Caffeine use: Yes Place of Residence: Home Review of Systems 10-point ROS is otherwise unremarkable Physical Examination Temp Pulse Resp BP Pulse Ox 97.6 F 90 17 118/61 91 01/01/23 16:00 01/01/23 17:28 01/01/23 16:00 01/01/23 17:28 01/01/23 16:00 General: In no apparent distress, Oriented x3, Cooperative HEENT: Atraumatic Neck: Supple Respiratory: Clear to auscultation bilaterally Cardiovascular: No edema, Regular rate/rhythm Gastrointestinal: Soft and benign, Non-distended Musculoskeletal: No clubbing, No contractures Integumentary: No rashes, No cyanosis Neurological: Normal speech Blood work reviewed in the chart. Imagings Data: [id number] EXAM DESCRIPTION: CT - Abdomen Pelvis W Contrast - 12/30/2022 1:32 pm CLINICAL HISTORY: Abdominal pain COMPARISON: 2014 TECHNIQUE: Computed axial tomography of the abdomen pelvis was obtained. 100 cc Isovue-300 was administered intravenously. Oral contrast was not requested which limits evaluation of bowel and appendix All CT scans are performed using dose optimization technique as appropriate and may include automated exposure control or mA/KV adjustment according to patient size. FINDINGS: A small to moderate hernia Liver, pancreas, adrenals and kidneys unremarkable Splenic granulomata. 1.5 centimeter splenic cyst. Gallbladder is distended. Bladder is distended. No adnexal mass. Diverticula stem from the colon without visualization diverticulitis. Compression fractures involve vertebral bodies of L1, L3 and L4. L1 compression is marked. These probably are old IMPRESSION: Gallbladder distention Bladder distention Conclusions/Impression: Hyponatremia -Encourage nutrition -Continue IVF with NS Hypokalemia -Replete prn Hypophosphatemia -Encourage nutrition -Replete as ordered HTN -Continue metoprolol -Hydralazine prn Anemia in chronic illness -Monitor H&H Hospitalist and ER notes reviewed Thank you kindly for the consultation
[2023-01-02] MEDS: HYDROMORPHONE HCL 0.5 MG/0.5 ML INJ IV PRN ×3 (01:00→08:48)
[2023-01-02] MEDS: PIPER TAZO 3.375 GM in NA CHLORIDE 0.9% 100 ML IV SCH ×3 (01:04→17:14)
[2023-01-02] MEDS: NA CHLORIDE 0.9% 1,000 ML IV SCH ×4 (01:17→20:14)
[2023-01-02 04:10] LABS: Potassium 3.1 mEq/L (3.5-5.1)
[2023-01-02] MEDS ORDERED: POTASSIUM 25 MEQ EFFERV TAB PO ONE (04:30)
[2023-01-02] MEDS: METOPROLOL TAR 25 MG TAB PO SCH ×2 (05:08→17:14)
[2023-01-02] MEDS: ONDANSETRON 4 MG/2 ML VIAL IV PRN ×2 (06:14→20:15)
[2023-01-02] MEDS ORDERED: ONDANSETRON 4 MG/2 ML VIAL ONE ×3 (06:21→11:23)
[2023-01-02 08:38] LABS: Absolute Lymphocytes (CBC) 0.7 K/uL (0.7-4.9); Hematocrit 36.7 % (36.0-45.0); Lymphocytes % 8.9 % (15.3-44.8); MCV 89.5 fL (80-100); MPV 7.3 fL (7.6-11.3); Platelets 376 thou/uL (152-406)
[2023-01-02] MEDS: ENOXAPARIN 60 MG/0.6 ML SQ SCH (08:42)
[2023-01-02] MEDS: SODIUM CHLORIDE 0.9% 10ML INJ IV PRN (08:42)
[2023-01-02] MEDS: LIDOCAINE 4% PATCH TOP SCH (08:42)
[2023-01-02] MEDS: PANTOPRAZOLE 40 MG INJ IVP SCH (08:42)
[2023-01-02] MEDS: DRISDOL (VITAMIN D=ERGOCALCIFEROL) 50000 UNIT CAP PO SCH (08:42)
[2023-01-02] MEDS: DOCUSATE NA 100 MG CAP PO SCH (08:42)
[2023-01-02 08:57] LABS: Albumin 3.1 g/dL (3.4-5.0); Bilirubin Total 0.7 mg/dL (0.2-1.0); Protein, Total 6.6 g/dL (6.4-8.2); Troponin High Sensitivity 18.5 pg/mL (<58.9)
[2023-01-02] MEDS ORDERED: propofoL 200 MG/20 ML VIAL IV ONE (10:08)
[2023-01-02] MEDS ORDERED: MIDAZOLAM HCL 2 MG/2 ML INJ ONE (10:11)
[2023-01-02] MEDS ORDERED: FENTANYL CITR 100 MCG/2 ML ONE (10:14)
[2023-01-02] MEDS ORDERED: LIDOCAINE 2% MPF 5 ML VIAL ONE (10:14)
[2023-01-02] MEDS ORDERED: ROCURONIUM 50 MG/5 ML VIAL IV ONE (10:15)
[2023-01-02] MEDS ORDERED: Ringers Lactate 1,000 ML IV ONE (10:41)
--- NOTE | 2023-01-02 11:18 | EKG ---
Test Date: 2023-01-02 Test Time: 08:03:13 Food Assembler: MADDIE MEASUREMENT RESULTS: Intervals: Rate: 98 MN: 166 QRSD: 82 QT: 356 QTc: 454 Rosie: P: 78 MN: 166 QRS: 92 T: 11 INTERPRETIVE STATEMENTS: Sinus rhythm with premature atrial complexes and premature ventricular complexes or fusion complexes Possible Left atrial enlargement Rightward axis Borderline ECG Compared to ECG 04/18/2022 10:10:20 Fusion complex(es) now present Ventricular premature complex(es) now present Right-axis deviation now present Myocardial infarct finding no longer present Electronically Signed On 01-02-23 11:17:17 CDT by Allen Flores
[2023-01-02] MEDS ORDERED: dexAMETHasone 4 MG/ML VIAL ONE (11:23)
[2023-01-02] MEDS ORDERED: KETOROLAC 30 MG/ML INJ ONE (11:23)
[2023-01-02] MEDS ORDERED: Mastisol Adhesive Liq ONE (11:46)
--- NOTE | 2023-01-02 11:46 | P.OP ---
Date of Service: 01/02/23 Preop diagnosis: Chronic cholecystitis and cholelithiasis Postop diagnosis: Same Procedure performed: Laparoscopic cholecystectomy Surgeon: Jalil Everett MD Overlock Collar Setter: Yasmeen MARTIN Estimated blood loss: Minimal Specimen: Gallbladder Findings: As above Anesthesia: General Complications: None Drains: None Fluids and blood products: Nonapplicable Disposition: Recovery room Operative note: Patient brought to the OR and placed in the supine position. General anesthesia begun. Patient prepped and draped in the usual sterile fashion. Marcaine 0.5% infiltrated locally. 15 blade used to make a 1 cm infraumbilical midline incision. Subcu tissue divided and bleeding controlled cautery. Peritoneal cavity entered with sharp and blunt dissection. 12 mm trocar placed into the peritoneal cavity under direct vision. Pneumoperitoneum established. Then under direct vision three 5 mm trocars placed. 1 trocar placed in the epigastric region just to the right of midline. 2 trocars placed in the right subcostal region. Laparoscopy revealed chronic inflammation of the gallbladder with some omental adhesions. Fundus identified and retracted superiorly. Infundibulum identified retracted inferolaterally. Mild adhesions taken down with sharp and blunt dissection. Bleeding controlled with cautery. Cystic duct and cystic artery clearly identified with blunt dissection. Clips placed and both structures divided. Cautery used to remove the gallbladder from the liver bed. Bleeding on the liver controlled cautery. Gallbladder retrieved through the umbilicus via Endo Catch bag. Right upper quadrant irrigated. No evidence of bleeding or bile leakage appreciated. Clearly fluid present. Subsequently all trocars removed under direct vision. Stay sutures tied together to reapproximate the fascial defect. Subcutaneous wound irrigated. Bleeding controlled cautery. 3-0 chromic used to approximate subcutaneous tissue and close skin. Sterile dressing applied. Patient awakened and taken to recovery room in good general condition. CC:
[2023-01-02] MEDS ORDERED: NEOSTIGMINE 1 MG/ML -10 ML VIAL ONE (11:55)
[2023-01-02] MEDS ORDERED: GLYCOPYRROLATE 0.2 MG/ML SYR ONE (11:55)
[2023-01-02] MEDS ORDERED: METOCLOPRAMIDE 10 MG/2mL INJ ONE (12:36)
[2023-01-02] MEDS ORDERED: PROMETHAZINE INJ 25 MG/ML AMP ONE (12:42)
[2023-01-02] MEDS ORDERED: LABETALOL HCL 100 MG/20 ML ONE (13:01)
--- NOTE | 2023-01-02 13:02 | PN ---
Date of Progress Note: 01/02/2023 Subjective: Patient was unable to tolerate diet this morning, had nausea and vomiting. She has waxi ng and waning symptomology associated with the gallbladder. Patient was seen by Dr. Valderrama and he felt the heart was not the source of her problem and her EKG is normal, troponin is normal, not havin g any chest pain. Therefore, she is cleared for surgery and it is thought that the gallbladder is an issue. Therefore, we will proceed accordingly. Objective: Vital Signs: Stable. Afebrile. Abdomen: Tender in the right upper quadrant. No peritonitis. Assessment: Chronic cholecystitis and cholelithiasis. Plan: We will proceed with laparoscopic cholecystectomy, possible open. Patient and son understand risks, benefits, and alternatives and agreed to procedure. /MODL Voice ID: [id number] Report ID: [id number]
[2023-01-02] MEDS: HYDROMORPHONE HCL 1 MG/ML INJ IV PRN (20:14)
[2023-01-02] MEDS ORDERED: NA CHLORIDE 0.9% 500 ML IV PRN (20:18)
--- NOTE | 2023-01-02 22:17 | P.PN ---
Date of Service: 01/02/23 Vital Signs Temp Pulse Resp BP Pulse Ox 98.0 F 90 19 122/55 L 98 01/02/23 16:00 01/02/23 17:14 01/02/23 20:14 01/02/23 17:14 01/02/23 20:14 Medications Hydrocodone Bitart/Acetaminophen (Hydrocodone/Apap 7.5/325 Mg Tab) 1 tab PO Q6H PRN PRN Reason: Pain scale 5-7 (Moderate) Docusate Sodium (Docusate Na 100 Mg Cap) 100 mg PO BID [facility] Last Admin: 01/02/23 08:42 Dose: 100 mg Ergocalciferol (Drisdol (Vitamin D=Ergocalciferol) 15383 Unit Cap) 50,000 unit PO Q48H [facility] Stop: 01/04/23 09:01 Last Admin: 01/02/23 08:42 Dose: 50,000 unit Hydralazine HCl (Hydralazine Hcl 20 Mg/Ml Vial) 10 mg IV Q6HP PRN PRN Reason: Goal to achieve SBP in comment Last Admin: 12/31/22 04:43 Dose: 10 mg Hydromorphone HCl (Hydromorphone Hcl 1 Mg/Ml Inj) 1 mg IV Q4H PRN PRN Reason: Pain scale 8-10 (Severe) Last Admin: 01/02/23 20:14 Dose: 1 mg Sodium Chloride (Ns 1000 Ml Ivbag) 1,000 mls @ 100 mls/hr IV .Q10H [facility] Last Admin: 01/02/23 20:14 Dose: 1,000 mls Piperacillin Sod/Tazobactam (Sod 3.375 gm/ Sodium Chloride) 100 mls @ 25 mls/hr IV Q8HR [facility]; Protocol Last Admin: 01/02/23 17:14 Dose: 100 mls Sodium Chloride (Sodium Chloride) 500 mls @ 999 mls/hr IV PRN PRN PRN Reason: bp 85/58 Lidocaine (Lidocaine 4% Patch) 1 patch TOP DAILY [facility] Last Admin: 01/02/23 08:42 Dose: 1 patch Metoprolol Tartrate (Metoprolol Tar 25 Mg Tab) 12.5 mg PO BID 6AM 6PM [facility] Last Admin: 01/02/23 17:14 Dose: 12.5 mg Ondansetron HCl (Ondansetron 4 Mg/2 Ml Vial) 4 mg IV Q4H PRN PRN Reason: NAUSEA / VOMITING Last Admin: 01/02/23 20:15 Dose: 4 mg Pantoprazole Sodium (Pantoprazole 40 Mg Inj) 40 mg IVP DAILY [facility]; Protocol Last Admin: 01/02/23 08:42 Dose: 40 mg Sodium Chloride (Sodium Chloride 0.9% 10ml Inj) 10 ml IV UD PRN PRN Reason: Diluant Last Admin: 01/02/23 08:42 Dose: 10 ml Assessment/ Plan: Nephrology No dyspnea No chest pain Back Pain +BM No acute events overnight Vitals, medications, blood work and imaging reviewed in the chart. General: In no apparent distress, Oriented x3, Cooperative HEENT: Atraumatic Neck: Supple Respiratory: Clear to auscultation bilaterally Cardiovascular: No edema, Regular rate/rhythm Gastrointestinal: Soft and benign, Non-distended Musculoskeletal: No clubbing, No contractures Integumentary: No rashes, No cyanosis Neurological: Normal speech Blood work reviewed in the chart. Imagings Data: EXAM DESCRIPTION: CT - Abdomen Pelvis W Contrast - 12/30/2022 1:32 pm CLINICAL HISTORY: Abdominal pain COMPARISON: 2014 TECHNIQUE: Computed axial tomography of the abdomen pelvis was obtained. 100 cc Isovue-300 was administered intravenously. Oral contrast was not requested which limits evaluation of bowel and appendix All CT scans are performed using dose optimization technique as appropriate and may include automated exposure control or mA/KV adjustment according to patient size. FINDINGS: A small to moderate hernia Liver, pancreas, adrenals and kidneys unremarkable Splenic granulomata. 1.5 centimeter splenic cyst. Gallbladder is distended. Bladder is distended. No adnexal mass. Diverticula stem from the colon without visualization diverticulitis. Compression fractures involve vertebral bodies of L1, L3 and L4. L1 compression is marked. These probably are old IMPRESSION: Gallbladder distention Bladder distention Conclusions/Impression: Hyponatremia -Encourage nutrition -Continue IVF with NS Hypokalemia -Replete prn Hypophosphatemia -Encourage nutrition -Replete as ordered HTN -Continue metoprolol -Hydralazine prn Anemia in chronic illness -Monitor H&H Hospitalist note reviewed
[2023-01-03] MEDS: DOCUSATE NA 100 MG CAP PO SCH ×3 (00:17→21:13)
[2023-01-03] MEDS: PIPER TAZO 3.375 GM in NA CHLORIDE 0.9% 100 ML IV SCH ×3 (00:20→16:35)
[2023-01-03] MEDS: METOPROLOL TAR 25 MG TAB PO SCH ×2 (06:17→18:44)
[2023-01-03] MEDS: NA CHLORIDE 0.9% 1,000 ML IV SCH (06:19)
[2023-01-03] MEDS: PANTOPRAZOLE 40 MG INJ IVP SCH (08:13)
[2023-01-03 09:42] LABS: Absolute Lymphocytes (CBC) 1.2 K/uL (0.7-4.9); Hematocrit 22.1 % (36.0-45.0); Lymphocytes % 9.7 % (15.3-44.8); MCV 88.8 fL (80-100); MPV 8.2 fL (7.6-11.3); Platelets 323 thou/uL (152-406); RBC Red Blood Cell Count 2.49 M/uL (3.86-4.86)
--- NOTE | 2023-01-03 11:11 | ECHO ---
HEIGHT: 5 ft 7 in WEIGHT: 125 lb 0 oz DATE OF STUDY: 01/02/[address]: Kameron Arcos MD 2-DIMENSIONAL: YES M.MODE: YES DOPPLER: YES COLOR FLOW: YES TDS: PORTABLE: YES DEFINITY: BUBBLE STUDY: DIAGNOSIS: CHEST PAIN CARDIAC HISTORY: CATHERIZATION: NO SURGERY: NO PROSTHETIC VALVE: NO PACEMAKER: YES MEASUREMENTS (cm) DIASTOLIC (NORMALS) SYSTOLIC (NORMALS) IVSd 1.0 (0.6-1.2) LA Diam 3.5 (1.9-4.0) LVEF 81% LVIDd 3.2 (3.5-5.7) LVIDs 1.6 (2.0-3.5) %FS 48% LVPWd 1.1 (0.6-1.2) Ao Diam 2.5 (2.0-3.7) 2 DIMENSIONAL ASSESSMENT: RIGHT ATRIUM: NORMAL LEFT ATRIUM: ENLARGED RIGHT VENTRICLE: PACEMAKER LEFT VENTRICLE: NORMAL TRICUSPID VALVE: MODERATE TRICUSPID REGURGITATION MITRAL VALVE: SEVERE MITRAL ANNULAR CALCIFICATION PULMONIC VALVE: MILD PULMONIC INSUFFICIENCY AORTIC VALVE: MILD AORTIC INSUFFICIENCY PERICARDIAL EFFUSION: NONE AORTIC ROOT: NORMAL LEFT VENTRICULAR WALL MOTION: NORMAL DOPPLER/COLOR FLOW: SEE BELOW COMMENTS: 1. NORMAL LEFT VENTRICULAR EJECTION FRACTION GREATER THAN 60% WITH NORMAL WALL MOTION 2. 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 LEFT ATRIAL ENLARGEMENT 4. MODEARATE TO SEVERE TRICUSPID REGURGITATION 5. SEVERE PULMONARY HYPERTENSION WITH RIGHT VENTRICULAR SYSTOLIC PRESSURE GREATER THAN 100 mmHg TECHNOLOGIST: MARINO RAE
[2023-01-03 14:54] LABS: Absolute Lymphocytes (CBC) 1.3 K/uL (0.7-4.9); Hematocrit 21.9 % (36.0-45.0); Lymphocytes % 9.3 % (15.3-44.8); MCV 89.5 fL (80-100); MPV 7.9 fL (7.6-11.3); Platelets 325 thou/uL (152-406); RBC Red Blood Cell Count 2.45 M/uL (3.86-4.86)
[2023-01-03] MEDS: HYDROCODONE/APAP 7.5/325 MG TAB PO PRN (15:13)
[2023-01-03] MEDS: LIDOCAINE 4% PATCH TOP SCH (15:13)
[2023-01-03] MEDS: ONDANSETRON 4 MG/2 ML VIAL IV PRN (15:19)
--- NOTE | 2023-01-03 17:11 | PN ---
Date of Progress Note: 01/03/2023 Subjective: Patient is awake, alert. No complaint at all. Tolerating diet. No pain. No nausea. No vomiting. No discomfort at all. Objective: Vital Signs: Stable. Afebrile. Heart rate is slightly up 107 to 113, blood pressure 12 0/60. Abdomen: Soft, nondistended, nontender. Positive bowel sounds. Dressings are clean, dry, intact. Laboratory Data: H and H 7.7 and 22.1. Assessment: Status post laparoscopic cholecystectomy, H and H today and make sure it is s table. Monitor her. When the H and H is stable, she will be cleared for discharge. Should her H an d H get worse, she may need study. We will follow this patient closely. She is not quite ready to go home yet until we assure that she has no evidence of bleeding. SIDRA/MODL Voice ID: [id number] Report ID: [id number]
[2023-01-03 20:00] LABS: Absolute Lymphocytes (CBC) 1.3 K/uL (0.7-4.9); Hematocrit 20.6 % (36.0-45.0); MCV 89.5 fL (80-100); MPV 7.8 fL (7.6-11.3); Platelets 314 thou/uL (152-406); RBC Red Blood Cell Count 2.31 M/uL (3.86-4.86)
--- NOTE | 2023-01-03 22:42 | P.PN ---
Date of Service: 01/03/23 Vital Signs Temp Pulse Resp BP Pulse Ox 97.9 F 100 H 16 130/61 99 01/03/23 16:00 01/03/23 18:44 01/03/23 16:00 01/03/23 18:44 01/03/23 16:00 Medications Hydrocodone Bitart/Acetaminophen (Hydrocodone/Apap 7.5/325 Mg Tab) 1 tab PO Q6H PRN PRN Reason: Pain scale 5-7 (Moderate) Last Admin: 01/03/23 15:13 Dose: 1 tab Docusate Sodium (Docusate Na 100 Mg Cap) 100 mg PO BID [facility] Last Admin: 01/03/23 21:13 Dose: 100 mg Ergocalciferol (Drisdol (Vitamin D=Ergocalciferol) 55517 Unit Cap) 50,000 unit PO Q48H [facility] Stop: 01/04/23 09:01 Last Admin: 01/02/23 08:42 Dose: 50,000 unit Hydralazine HCl (Hydralazine Hcl 20 Mg/Ml Vial) 10 mg IV Q6HP PRN PRN Reason: Goal to achieve SBP in comment Last Admin: 12/31/22 04:43 Dose: 10 mg Hydromorphone HCl (Hydromorphone Hcl 1 Mg/Ml Inj) 1 mg IV Q4H PRN PRN Reason: Pain scale 8-10 (Severe) Last Admin: 01/02/23 20:14 Dose: 1 mg Piperacillin Sod/Tazobactam (Sod 3.375 gm/ Sodium Chloride) 100 mls @ 25 mls/hr IV Q8HR [facility]; Protocol Last Admin: 01/03/23 16:35 Dose: 100 mls Sodium Chloride (Sodium Chloride) 500 mls @ 999 mls/hr IV PRN PRN PRN Reason: bp 85/58 Lidocaine (Lidocaine 4% Patch) 1 patch TOP DAILY [facility] Last Admin: 01/03/23 15:13 Dose: 1 patch Metoprolol Tartrate (Metoprolol Tar 25 Mg Tab) 12.5 mg PO BID 6AM 6PM [facility] Last Admin: 01/03/23 18:44 Dose: 12.5 mg Ondansetron HCl (Ondansetron 4 Mg/2 Ml Vial) 4 mg IV Q4H PRN PRN Reason: NAUSEA / VOMITING Last Admin: 01/03/23 15:19 Dose: 4 mg Pantoprazole Sodium (Pantoprazole 40 Mg Inj) 40 mg IVP DAILY [facility]; Protocol Last Admin: 01/03/23 08:13 Dose: 40 mg Sodium Chloride (Sodium Chloride 0.9% 10ml Inj) 10 ml IV UD PRN PRN Reason: Diluant Last Admin: 01/02/23 08:42 Dose: 10 ml Assessment/ Plan: Nephrology No dyspnea No chest pain Feeling better No acute events overnight Vitals, medications, blood work and imaging reviewed in the chart. General: In no apparent distress, Oriented x3, Cooperative HEENT: Atraumatic Neck: Supple Respiratory: Clear to auscultation bilaterally Cardiovascular: No edema, Regular rate/rhythm Gastrointestinal: Soft and benign, Non-distended Musculoskeletal: No clubbing, No contractures Integumentary: No rashes, No cyanosis Neurological: Normal speech Blood work reviewed in the chart. Imagings Data: EXAM DESCRIPTION: CT - Abdomen Pelvis W Contrast - 12/30/2022 1:32 pm CLINICAL HISTORY: Abdominal pain COMPARISON: 2014 TECHNIQUE: Computed axial tomography of the abdomen pelvis was obtained. 100 cc Isovue-300 was administered intravenously. Oral contrast was not requested which limits evaluation of bowel and appendix All CT scans are performed using dose optimization technique as appropriate and may include automated exposure control or mA/KV adjustment according to patient size. FINDINGS: A small to moderate hernia Liver, pancreas, adrenals and kidneys unremarkable Splenic granulomata. 1.5 centimeter splenic cyst. Gallbladder is distended. Bladder is distended. No adnexal mass. Diverticula stem from the colon without visualization diverticulitis. Compression fractures involve vertebral bodies of L1, L3 and L4. L1 compression is marked. These probably are old IMPRESSION: Gallbladder distention Bladder distention Conclusions/Impression: Hyponatremia -Encourage nutrition Hypokalemia -Replete prn Hypophosphatemia -Encourage nutrition -Replete as ordered HTN -Continue metoprolol -Hydralazine prn Anemia in chronic illness -Monitor H&H -Transfuse PRBC Hospitalist note reviewed
[2023-01-03] MEDS ORDERED: NA CHLORIDE 0.9% 250 ML ONE (22:48)
[2023-01-04] MEDS: HYDROCODONE/APAP 7.5/325 MG TAB PO PRN ×3 (00:32→23:12)
[2023-01-04] MEDS: PIPER TAZO 3.375 GM in NA CHLORIDE 0.9% 100 ML IV SCH ×3 (01:00→17:36)
[2023-01-04] MEDS: HYDROMORPHONE HCL 1 MG/ML INJ IV PRN (01:55)
[2023-01-04] MEDS: ONDANSETRON 4 MG/2 ML VIAL IV PRN ×2 (01:55→21:35)
[2023-01-04] MEDS: METOPROLOL TAR 25 MG TAB PO SCH (06:15)
[2023-01-04 08:16] LABS: Absolute Lymphocytes (CBC) 0.9 K/uL (0.7-4.9); Hematocrit 28.6 % (36.0-45.0); Lymphocytes % 8.3 % (15.3-44.8); MCV 87.3 fL (80-100); MPV 7.5 fL (7.6-11.3); Platelets 248 thou/uL (152-406); RBC Red Blood Cell Count 3.27 M/uL (3.86-4.86)
[2023-01-04 08:35] LABS: Albumin 2.7 g/dL (3.4-5.0); Bilirubin Total 1.2 mg/dL (0.2-1.0); Magnesium 1.8 mg/dL (1.6-2.4); Phosphorus 2.7 mg/dL (2.5-4.9); Potassium 3.5 mEq/L (3.5-5.1); Protein, Total 5.6 g/dL (6.4-8.2)
[2023-01-04] MEDS ORDERED: METOPROLOL TARTRATE 5 MG/5 ML INJ IV STA ×2 (08:37→16:36)
--- NOTE | 2023-01-04 09:11 | PN ---
Date of Progress Note: 01/04/2023 Subjective: Patient is awake, alert. No complaint. Wants to go home. Tolerating diet. No abdomin al pain. No nausea, no vomiting. Objective: Vital Signs: Stable. Currently afebrile. Her heart rate is slightly elevated. She pacheco s have AFib, however. Abdomen: Completely benign. Laboratory Data: Her H and H prior to transfusion was 6.9 and 20.6. This morning is 9.[address] 2 units of transfusion. The bleeding has slowed down; however, we need to continue to monitor it . Assessment: Status post laparoscopic cholecystectomy. Recommendations: Once the heart rate is controlled for patient's AFib, H and H remained stable, aubrey ent will be discharged home. Plan of care and discharge discussed with Dr. Arcos. We will monitor th is patient closely today. Maybe this evening, patient can be discharged if the next 2 H and H remain stable. If not, we may need to keep her until tomorrow morning. /MODL Voice ID: [id number] Report ID: [id number]
[2023-01-04] MEDS: DOCUSATE NA 100 MG CAP PO SCH ×2 (09:17→20:08)
[2023-01-04] MEDS: LIDOCAINE 4% PATCH TOP SCH (09:17)
[2023-01-04] MEDS: DRISDOL (VITAMIN D=ERGOCALCIFEROL) 50000 UNIT CAP PO SCH (09:17)
[2023-01-04] MEDS: PANTOPRAZOLE 40 MG INJ IVP SCH (09:17)
[2023-01-04 11:27] LABS: Hematocrit 28.6 % (36.0-45.0); Lymphocytes % 9.1 % (15.3-44.8); MCV 86.3 fL (80-100); MPV 7.8 fL (7.6-11.3); Platelets 242 thou/uL (152-406); RBC Red Blood Cell Count 3.32 M/uL (3.86-4.86)
[2023-01-04 12:16] LABS: Blood Morphology Comment NOT SEEN (NOT SEEN); Platelet Estimate ADEQ; White Blood Cell Scan OK (OK)
[2023-01-04] MEDS: METOPROLOL TAR 50 MG TAB PO SCH (17:36)
--- NOTE | 2023-01-04 20:03 | P.PN ---
Date of Service: 01/04/23 Vital Signs Temp Pulse Resp BP Pulse Ox 97.7 F 105 H 18 129/68 97 01/04/23 16:00 01/04/23 16:00 01/04/23 16:00 01/04/23 16:00 01/04/23 16:00 Medications Hydrocodone Bitart/Acetaminophen (Hydrocodone/Apap 7.5/325 Mg Tab) 1 tab PO Q6H PRN PRN Reason: Pain scale 5-7 (Moderate) Last Admin: 01/04/23 16:32 Dose: 1 tab Ascorbic Acid (Ascorbic Acid 500 Mg Tablet) 500 mg PO DAILY [facility] Docusate Sodium (Docusate Na 100 Mg Cap) 100 mg PO BID [facility] Last Admin: 01/04/23 09:17 Dose: 100 mg Hydralazine HCl (Hydralazine Hcl 20 Mg/Ml Vial) 10 mg IV Q6HP PRN PRN Reason: Goal to achieve SBP in comment Last Admin: 12/31/22 04:43 Dose: 10 mg Hydromorphone HCl (Hydromorphone Hcl 1 Mg/Ml Inj) 1 mg IV Q4H PRN PRN Reason: Pain scale 8-10 (Severe) Last Admin: 01/04/23 01:55 Dose: 1 mg Piperacillin Sod/Tazobactam (Sod 3.375 gm/ Sodium Chloride) 100 mls @ 25 mls/hr IV Q8HR [facility]; Protocol Last Admin: 01/04/23 17:36 Dose: 100 mls Sodium Chloride (Sodium Chloride) 500 mls @ 999 mls/hr IV PRN PRN PRN Reason: bp 85/58 Lidocaine (Lidocaine 4% Patch) 1 patch TOP DAILY [facility] Last Admin: 01/04/23 09:17 Dose: 1 patch Metoprolol Tartrate (Metoprolol Tar 50 Mg Tab) 50 mg PO BID 6AM 6PM [facility] Last Admin: 01/04/23 17:36 Dose: 50 mg Ondansetron HCl (Ondansetron 4 Mg/2 Ml Vial) 4 mg IV Q4H PRN PRN Reason: NAUSEA / VOMITING Last Admin: 01/04/23 01:55 Dose: 4 mg Pantoprazole Sodium (Pantoprazole 40 Mg Inj) 40 mg IVP DAILY [facility]; Protocol Last Admin: 01/04/23 09:17 Dose: 40 mg Sodium Chloride (Sodium Chloride 0.9% 10ml Inj) 10 ml IV UD PRN PRN Reason: Diluant Last Admin: 01/02/23 08:42 Dose: 10 ml Assessment/ Plan: Nephrology No dyspnea No chest pain Feeling better No acute events overnight Vitals, medications, blood work and imaging reviewed in the chart. General: In no apparent distress, Oriented x3, Cooperative HEENT: Atraumatic Neck: Supple Respiratory: Clear to auscultation bilaterally Cardiovascular: No edema, Regular rate/rhythm Gastrointestinal: Soft and benign, Non-distended Musculoskeletal: No clubbing, No contractures Integumentary: No rashes, No cyanosis Neurological: Normal speech Blood work reviewed in the chart. Imagings Data: EXAM DESCRIPTION: CT - Abdomen Pelvis W Contrast - 12/30/2022 1:32 pm CLINICAL HISTORY: Abdominal pain COMPARISON: 2014 TECHNIQUE: Computed axial tomography of the abdomen pelvis was obtained. 100 cc Isovue-300 was administered intravenously. Oral contrast was not requested which limits evaluation of bowel and appendix All CT scans are performed using dose optimization technique as appropriate and may include automated exposure control or mA/KV adjustment according to patient size. FINDINGS: A small to moderate hernia Liver, pancreas, adrenals and kidneys unremarkable Splenic granulomata. 1.5 centimeter splenic cyst. Gallbladder is distended. Bladder is distended. No adnexal mass. Diverticula stem from the colon without visualization diverticulitis. Compression fractures involve vertebral bodies of L1, L3 and L4. L1 compression is marked. These probably are old IMPRESSION: Gallbladder distention Bladder distention Conclusions/Impression: Hyponatremia -Encourage nutrition Hypokalemia -Replete prn Hypophosphatemia -Encourage nutrition -Replete as ordered HTN -Continue metoprolol -Hydralazine prn Anemia in chronic illness -Monitor H&H -Transfuse PRBC prn Hospitalist note reviewed
[2023-01-05] MEDS: PIPER TAZO 3.375 GM in NA CHLORIDE 0.9% 100 ML IV SCH ×3 (01:10→17:50)
[2023-01-05] MEDS: ONDANSETRON 4 MG/2 ML VIAL IV PRN ×2 (03:47→09:39)
[2023-01-05] MEDS: METOPROLOL TAR 50 MG TAB PO SCH ×2 (06:01→17:50)
[2023-01-05 07:12] LABS: RBC Red Blood Cell Count 3.37 M/uL (3.86-4.86)
[2023-01-05 07:13] LABS: Absolute Lymphocytes (CBC) 0.9 K/uL (0.7-4.9); Lymphocytes % 7.4 % (15.3-44.8); MCV 86.9 fL (80-100); MPV 7.9 fL (7.6-11.3); Platelets 269 thou/uL (152-406); RBC Red Blood Cell Count 3.34 M/uL (3.86-4.86)
[2023-01-05 07:46] LABS: Albumin 2.8 g/dL (3.4-5.0); Magnesium 1.7 mg/dL (1.6-2.4); Potassium 3.2 mEq/L (3.5-5.1)
[2023-01-05] MEDS ORDERED: METOPROLOL TARTRATE 5 MG/5 ML INJ IV STA (09:22)
[2023-01-05] MEDS ORDERED: FUROSEMIDE 20 MG/ 2ML VIAL IV ONE (09:25)
[2023-01-05] MEDS ORDERED: POTASSIUM 25 MEQ EFFERV TAB PO ONE (09:28)
[2023-01-05] MEDS: LIDOCAINE 4% PATCH TOP SCH (09:40)
[2023-01-05] MEDS: PANTOPRAZOLE 40 MG INJ IVP SCH (09:40)
[2023-01-05] MEDS: ASCORBIC ACID 500 MG TABLET PO SCH (09:40)
[2023-01-05] MEDS: DOCUSATE NA 100 MG CAP PO SCH ×2 (09:40→20:42)
--- NOTE | 2023-01-05 12:31 | RAD REPORT ---
EXAM DESCRIPTION: Artem Single View01/05/2023 12:04 pm CLINICAL HISTORY: Shortness of breath COMPARISON: March 2022 FINDINGS: Small to moderate bilateral pleural effusions with bibasilar atelectasis. Upper lobes appear clear. Heart is borderline enlarged. Pacemaker leads in place
--- NOTE | 2023-01-05 12:32 | RAD REPORT ---
EXAM DESCRIPTION: RAD - Abdomen W Erect - 01/05/2023 12:04 pm CLINICAL HISTORY: Abdominal pain FINDINGS: The bowel gas pattern unremarkable Free air is not seen beneath the diaphragm.
[2023-01-05] MEDS: HYDROCODONE/APAP 7.5/325 MG TAB PO PRN (14:09)
--- NOTE | 2023-01-05 14:12 | PN ---
Date of Progress Note: 01/05/2023 Subjective: The patient is complaining of lower back pain and lower abdominal pain. Vital signs are stable. She is afebrile. Her H and H are stable at 9.9 and 29 this morning. Her abdomen is benign . The patient has not had a bowel movement for the last week. Assessment: Status post laparoscopic cholecystectomy with lower abdominal pain and back pain. Recommendations: Discussed the case with Dr. Arcos. We will get an x-ray to make sure she is not con stipated and once her pain is under control, she is cleared from surgery point of view for discharge and she can follow up with me in my office next week. Discharge instructions given. SIDRA/KAT Voice ID: [id number] Report ID: [id number]
--- NOTE | 2023-01-05 14:35 | ECHO ---
HEIGHT: 5 ft 7 in WEIGHT: 125 lb 0 oz DATE OF STUDY: 01/05/[address]: Kameron Arcos MD 2-DIMENSIONAL: YES M.MODE: YES DOPPLER: YES COLOR FLOW: YES TDS: PORTABLE: YES DEFINITY: BUBBLE STUDY: DIAGNOSIS: REPEAT TO MONITOR PULMONARY HYPERTENSION CARDIAC HISTORY: CATHERIZATION: YES SURGERY: YES PROSTHETIC VALVE: NO PACEMAKER: YES MEASUREMENTS (cm) DIASTOLIC (NORMALS) SYSTOLIC (NORMALS) IVSd 1.1 (0.6-1.2) LA Diam 3.8 (1.9-4.0) LVEF 62% LVIDd 2.0 (3.5-5.7) LVIDs 1.4 (2.0-3.5) %FS 31% LVPWd 1.3 (0.6-1.2) Ao Diam 2.5 (2.0-3.7) 2 DIMENSIONAL ASSESSMENT: RIGHT ATRIUM: NORMAL LEFT ATRIUM: ENLARGED RIGHT VENTRICLE: NORMAL LEFT VENTRICLE: LEFT VENTRTICULAR HYPERTROPHY TRICUSPID VALVE: SEVERE TRICUSPID REGURGITATION MITRAL VALVE: MITRAL STENOSIS, MITRAL REGURGIATION PULMONIC VALVE: MILD PULMONIC INSUFFICIENCY AORTIC VALVE: NORMAL PERICARDIAL EFFUSION: NONE AORTIC ROOT: NORMAL LEFT VENTRICULAR WALL MOTION: TACHYCARDIA WITH NORMAL WALL MOTION DOPPLER/COLOR FLOW: SEE BELOW COMMENTS: 1. STUDY IS POOR QUALITY DUE TO TACHYCARDIA 2. LEFT VENTRICULAR EJECTION FRACTION IS NORMAL GREATER THAN 60% 3. LEFT ATRIAL ENLARGEMENT 4. MITRAL VALVE STENOSIS AND MITRAL REGURGITATION ARE PRESENT 5. SEVERE TRICUSPID REGURGITATION 6. SEVERE PULMONARY HYPERTENSION WITH RIGHT VENTRICULAR SYSTOLIC PRESSURE OF 85 mmHg PLUS RIGHT ATRIAL PRESSURE TECHNOLOGIST: MARINO RAE
[2023-01-05] MEDS: HYDROMORPHONE HCL 1 MG/ML INJ IV PRN (21:29)
[2023-01-06] MEDS: PIPER TAZO 3.375 GM in NA CHLORIDE 0.9% 100 ML IV SCH ×3 (00:40→17:59)
[2023-01-06] MEDS: METOPROLOL TAR 50 MG TAB PO SCH ×2 (05:27→17:58)
[2023-01-06] MEDS: PANTOPRAZOLE 40 MG INJ IVP SCH (10:25)
[2023-01-06] MEDS: DOCUSATE NA 100 MG CAP PO SCH ×2 (10:25→20:31)
[2023-01-06] MEDS: ASCORBIC ACID 500 MG TABLET PO SCH (10:26)
[2023-01-06] MEDS: LIDOCAINE 4% PATCH TOP SCH (10:26)
[2023-01-06] MEDS: HYDROMORPHONE HCL 1 MG/ML INJ IV PRN (14:56)
[2023-01-06] MEDS: HYDROCODONE/APAP 7.5/325 MG TAB PO PRN (20:31)
--- NOTE | 2023-01-06 21:55 | P.PN ---
Date of Service: 01/06/23 Vital Signs Temp Pulse Resp BP Pulse Ox 97.5 F 79 18 119/68 98 01/06/23 20:00 01/06/23 20:00 01/06/23 20:31 01/06/23 20:00 01/06/23 20:31 Medications Hydrocodone Bitart/Acetaminophen (Hydrocodone/Apap 7.5/325 Mg Tab) 1 tab PO Q6H PRN PRN Reason: Pain scale 5-7 (Moderate) Last Admin: 01/06/23 20:31 Dose: 1 tab Ascorbic Acid (Ascorbic Acid 500 Mg Tablet) 500 mg PO DAILY [facility] Last Admin: 01/06/23 10:26 Dose: 500 mg Docusate Sodium (Docusate Na 100 Mg Cap) 100 mg PO BID [facility] Last Admin: 01/06/23 20:31 Dose: 100 mg Hydralazine HCl (Hydralazine Hcl 20 Mg/Ml Vial) 10 mg IV Q6HP PRN PRN Reason: Goal to achieve SBP in comment Last Admin: 12/31/22 04:43 Dose: 10 mg Hydromorphone HCl (Hydromorphone Hcl 1 Mg/Ml Inj) 1 mg IV Q4H PRN PRN Reason: Pain scale 8-10 (Severe) Last Admin: 01/06/23 14:56 Dose: 1 mg Piperacillin Sod/Tazobactam (Sod 3.375 gm/ Sodium Chloride) 100 mls @ 25 mls/hr IV Q8HR [facility]; Protocol Last Admin: 01/06/23 17:59 Dose: 100 mls Sodium Chloride (Sodium Chloride) 500 mls @ 999 mls/hr IV PRN PRN PRN Reason: bp 85/58 Lidocaine (Lidocaine 4% Patch) 1 patch TOP DAILY [facility] Last Admin: 01/06/23 10:26 Dose: 1 patch Metoprolol Tartrate (Metoprolol Tar 50 Mg Tab) 50 mg PO BID 6AM 6PM [facility] Last Admin: 01/06/23 17:58 Dose: 50 mg Ondansetron HCl (Ondansetron 4 Mg/2 Ml Vial) 4 mg IV Q4H PRN PRN Reason: NAUSEA / VOMITING Last Admin: 01/05/23 09:39 Dose: 4 mg Pantoprazole Sodium (Pantoprazole 40 Mg Inj) 40 mg IVP DAILY [facility]; Protocol Last Admin: 01/06/23 10:25 Dose: 40 mg Sodium Chloride (Sodium Chloride 0.9% 10ml Inj) 10 ml IV UD PRN PRN Reason: Diluant Last Admin: 01/02/23 08:42 Dose: 10 ml Assessment/ Plan: Nephrology No dyspnea No chest pain Feeling better No acute events overnight Vitals, medications, blood work and imaging reviewed in the chart. General: In no apparent distress, Oriented x3, Cooperative HEENT: Atraumatic Neck: Supple Respiratory: Clear to auscultation bilaterally Cardiovascular: No edema, Regular rate/rhythm Gastrointestinal: Soft and benign, Non-distended Musculoskeletal: No clubbing, No contractures Integumentary: No rashes, No cyanosis Neurological: Normal speech Blood work reviewed in the chart. Imagings Data: EXAM DESCRIPTION: CT - Abdomen Pelvis W Contrast - 12/30/2022 1:32 pm CLINICAL HISTORY: Abdominal pain COMPARISON: 2014 TECHNIQUE: Computed axial tomography of the abdomen pelvis was obtained. 100 cc Isovue-300 was administered intravenously. Oral contrast was not requested which limits evaluation of bowel and appendix All CT scans are performed using dose optimization technique as appropriate and may include automated exposure control or mA/KV adjustment according to patient size. FINDINGS: A small to moderate hernia Liver, pancreas, adrenals and kidneys unremarkable Splenic granulomata. 1.5 centimeter splenic cyst. Gallbladder is distended. Bladder is distended. No adnexal mass. Diverticula stem from the colon without visualization diverticulitis. Compression fractures involve vertebral bodies of L1, L3 and L4. L1 compression is marked. These probably are old IMPRESSION: Gallbladder distention Bladder distention Conclusions/Impression: Hyponatremia -Encourage nutrition Hypokalemia -Replete as ordered Hypophosphatemia -Encourage nutrition -Replete as ordered HTN -Continue metoprolol -Hydralazine prn Anemia in chronic illness -Monitor H&H -Transfuse PRBC prn Hospitalist note reviewed Case reviewed with Dr. Arcos
[2023-01-07] MEDS: PIPER TAZO 3.375 GM in NA CHLORIDE 0.9% 100 ML IV SCH ×3 (00:37→16:59)
--- NOTE | 2023-01-07 04:05 | P.PN ---
Date of Service: 01/02/23 Subjective: Patient is having significant abdominal tenderness today. Spoke to General surgery and patient may need to go to the operating room for laparoscopic cholecystectomy. Physical Exam: Vitals: reviewed GEN: Alert, oriented, NAD CV: Regular rate & rhythm, MATTHIAS II/ Pulm: Nonlabored respiraitons, clear bilaterally ABD: Soft, nontender, nondistended MSK: significant lumbar spine tenderness Neuro: No focal deficits Problem List: -Intractable Nausea and Vomiting suspect due to Severe Lumbar Spine Pain -L1, L3, L4 Compression Fractures -Cholelithiasis with possible acute cholecystitis -Hypovolemic and Hyponatremia due to Vomiting -Hypokalemia due to Vomiting -Paroxysmal Atrial Fibrillation s/p PPM -History of TIA (2015) -Severe mitral stenosis; TR; severe pulmonary hypertension Plan: -CT abdomen/pelvis(12/30): gallbladder distention. cholecystitis/cholelithiasis -symptoms appear to be due to severe back pain rather than abdominal pain -General surgery consulted; Dr. Everett plans to proceed with surgery -Continue with cardiac status -Advance diet as tolerated -Nephrology consultation appreciated -Continue IV fluids -Continue home medications as appropriate -Hold Lovenox; -Strict BP control
--- NOTE | 2023-01-07 04:11 | P.PN ---
Date of Service: 01/03/23 Subjective: s/p laparoscopic cholecystectomy POD #1. Patient is feeling better today; continue with cardiac medications Physical Exam: Vitals: reviewed GEN: Alert, oriented, NAD CV: Regular rate & rhythm, MATTHIAS II/ Pulm: Nonlabored respiraitons, clear bilaterally ABD: Soft, appropriately tender; BS positive MSK: LBP; mild Neuro: No focal deficits Problem List: -Intractable Nausea and Vomiting suspect due to Severe Lumbar Spine Pain -L1, L3, L4 Compression Fractures -Cholelithiasis with possible acute cholecystitis s/p laparoscopic cholecystectomy POD #1 -Hypovolemic and Hyponatremia due to Vomiting -Hypokalemia due to Vomiting -Paroxysmal Atrial Fibrillation s/p PPM -History of TIA (2016) -Severe mitral stenosis; TR; severe pulmonary hypertension Plan: -s/p laparoscopic cholecystectomy POD #1; continue with pain control -symptoms appear to be due to severe back pain rather than abdominal pain -General surgery consultation appreciated -Continue with cardiac status -Advance diet as tolerated -Nephrology consultation appreciated -Heplock IV -Continue home medications as appropriate -Hold Lovenox; -Strict BP control
--- NOTE | 2023-01-07 04:13 | P.PN ---
Date of Service: 01/04/23 Subjective: Patient is doing well with no new c/o. s/p laparoscopic cholecystectomy POD #2. Patient is feeling better today; continue with cardiac medications Physical Exam: Vitals: reviewed GEN: Alert, oriented, NAD CV: Regular rate & rhythm, MATTHIAS II/ Pulm: Nonlabored respiraitons, clear bilaterally ABD: Soft, appropriately tender; BS positive MSK: LBP; mild Neuro: No focal deficits Problem List: -Intractable Nausea and Vomiting suspect due to Severe Lumbar Spine Pain -L1, L3, L4 Compression Fractures -Cholelithiasis with possible acute cholecystitis s/p laparoscopic cholecystectomy POD #1 -Hypovolemic and Hyponatremia due to Vomiting -Hypokalemia due to Vomiting -Paroxysmal Atrial Fibrillation s/p PPM -History of TIA (2016) -Severe mitral stenosis; TR; severe pulmonary hypertension Plan: -s/p laparoscopic cholecystectomy POD #2; continue with pain control -symptoms appear to be due to severe back pain rather than abdominal pain -General surgery consultation appreciated -Continue with cardiac status -Advance diet as tolerated -Nephrology consultation appreciated -Heplock IV -Continue home medications as appropriate -Hold Lovenox; -Strict BP control
--- NOTE | 2023-01-07 04:16 | P.PN ---
Date of Service: 01/05/23 Subjective: Pt is doing well with no new c/o. s/p laparoscopic cholecystectomy POD #3. Patient is feeling better today; continue with cardiac medications Physical Exam: Vitals: reviewed GEN: Alert, oriented, NAD CV: Regular rate & rhythm, MATTHIAS II/ Pulm: Nonlabored respiraitons, clear bilaterally ABD: Soft, appropriately tender; BS positive MSK: LBP; mild Neuro: No focal deficits Problem List: -Chronic LBP/L1, L3, L4 Compression Fractures -Cholelithiasis with possible acute cholecystitis s/p laparoscopic cholecystectomy POD #3 -Hypovolemic and Hyponatremia due to Vomiting -Hypokalemia due to Vomiting -Paroxysmal Atrial Fibrillation s/p PPM -History of TIA (2016) -Severe mitral stenosis; TR; severe pulmonary hypertension Plan: -s/p laparoscopic cholecystectomy POD #3; continue with pain control -General surgery consultation appreciated -Continue with cardiac status -Advance diet as tolerated -Nephrology consultation appreciated -Heplock IV -Continue home medications as appropriate -Hold Lovenox; -Strict BP control
--- NOTE | 2023-01-07 04:17 | P.PN ---
Date of Service: 01/06/23 Subjective: Patient is doing well. Patient is clinically stable for discharge. Will make sure patient has family available to pick her up. The arranging for home oxygen as well. Physical Exam: Vitals: reviewed GEN: Alert, oriented, NAD CV: Regular rate & rhythm, MATTHIAS II/ Pulm: Nonlabored respiraitons, clear bilaterally ABD: Soft, appropriately tender; BS positive MSK: LBP; mild Neuro: No focal deficits Problem List: -Chronic LBP/L1, L3, L4 Compression Fractures -Cholelithiasis with possible acute cholecystitis s/p laparoscopic cholecystectomy POD #3 -Hypovolemic and Hyponatremia due to Vomiting -Hypokalemia due to Vomiting -Paroxysmal Atrial Fibrillation s/p PPM -History of TIA (2016) -Severe mitral stenosis; TR; severe pulmonary hypertension Plan: -s/p laparoscopic cholecystectomy POD #3; continue with pain control -General surgery consultation appreciated -Continue with cardiac status -Advance diet as tolerated -Nephrology consultation appreciated -Heplock IV -Continue home medications as appropriate -Hold Lovenox; -Strict BP control -Arrange for home O2
[2023-01-07] MEDS: METOPROLOL TAR 50 MG TAB PO SCH ×2 (04:38→17:01)
[2023-01-07 07:44] LABS: Absolute Lymphocytes (CBC) 0.7 K/uL (0.7-4.9); Hematocrit 32.3 % (36.0-45.0); Lymphocytes % 6.6 % (15.3-44.8); MPV 8.1 fL (7.6-11.3); Platelets 277 thou/uL (152-406); RBC Red Blood Cell Count 3.63 M/uL (3.86-4.86)
[2023-01-07 08:03] LABS: Magnesium 1.7 mg/dL (1.6-2.4); Potassium 2.7 mEq/L (3.5-5.1)
[2023-01-07] MEDS: LIDOCAINE 4% PATCH TOP SCH (08:44)
[2023-01-07] MEDS: ASCORBIC ACID 500 MG TABLET PO SCH (08:44)
[2023-01-07] MEDS: DOCUSATE NA 100 MG CAP PO SCH ×2 (08:44→19:10)
[2023-01-07] MEDS: POTASSIUM CL SA 10 MEQ TAB PO SCH ×2 (08:44→13:00)
[2023-01-07] MEDS: PANTOPRAZOLE 40 MG INJ IVP SCH ×2 (08:45→20:35)
[2023-01-07] MEDS ORDERED: POTASSIUM CL SA 10 MEQ TAB PO ONE (08:53)
[2023-01-07] MEDS: ONDANSETRON 4 MG/2 ML VIAL IV PRN ×4 (09:15→22:01)
[2023-01-07] MEDS: HYDRALAZINE HCL 20 MG/ML VIAL IV PRN (11:51)
[2023-01-07] MEDS: HYDROMORPHONE HCL 1 MG/ML INJ IV PRN (13:17)
[2023-01-07] MEDS: FENTANYL CITR 100 MCG/2 ML IV PRN ×2 (18:04→22:01)
[2023-01-07] MEDS: METHYLPREDNISOLONE 40 MG INJ IV SCH (18:04)
[2023-01-07] MEDS: NS KCL 20MEQ 20 MEQ/1,000 ML BAG IV SCH (18:05)
[2023-01-07] MEDS: HYDROCODONE/APAP 7.5/325 MG TAB PO PRN (20:39)
[2023-01-08] MEDS: METHYLPREDNISOLONE 40 MG INJ IV SCH (00:39)
[2023-01-08] MEDS: PIPER TAZO 3.375 GM in NA CHLORIDE 0.9% 100 ML IV SCH ×3 (00:39→16:56)
[2023-01-08] MEDS: FENTANYL CITR 100 MCG/2 ML IV PRN (02:32)
[2023-01-08] MEDS: HYDRALAZINE HCL 20 MG/ML VIAL IV PRN (02:32)
[2023-01-08] MEDS: ONDANSETRON 4 MG/2 ML VIAL IV PRN ×2 (02:32→13:26)
[2023-01-08 03:26] LABS: Absolute Lymphocytes (CBC) 0.3 K/uL (0.7-4.9); Hematocrit 34.8 % (36.0-45.0); Lymphocytes % 3.6 % (15.3-44.8); MCV 89.5 fL (80-100); MPV 8.4 fL (7.6-11.3); Platelets 299 thou/uL (152-406); RBC Red Blood Cell Count 3.89 M/uL (3.86-4.86)
[2023-01-08 03:38] LABS: Potassium 3.1 mEq/L (3.5-5.1); Uric Acid 1.5 mg/dL (2.6-6.0)
[2023-01-08 04:27] LABS: Blood Morphology Comment NOTED (NOT SEEN); Platelet Estimate ADEQ; Polychromasia 1+
[2023-01-08] MEDS: KCL 20 MEQ/100 mL IVPB 20 MEQ/100 ML BAG IV SCH ×2 (04:43→08:18)
[2023-01-08] MEDS: METOPROLOL TAR 50 MG TAB PO SCH ×2 (05:02→19:58)
[2023-01-08] MEDS: PANTOPRAZOLE 40 MG INJ IVP SCH ×2 (08:17→23:32)
[2023-01-08] MEDS: NS KCL 20MEQ 20 MEQ/1,000 ML BAG IV SCH (08:17)
[2023-01-08] MEDS: POTASSIUM CL SA 10 MEQ TAB PO SCH ×2 (09:45→13:40)
[2023-01-08] MEDS: LIDOCAINE 4% PATCH TOP SCH (11:36)
[2023-01-08] MEDS: ASCORBIC ACID 500 MG TABLET PO SCH (11:36)
[2023-01-08] MEDS: DOCUSATE NA 100 MG CAP PO SCH ×2 (11:36→23:32)
--- NOTE | 2023-01-08 11:48 | P.PN ---
Date of Service: 01/07/23 Subjective: Plan was to discharge this morning with patient having nausea and vomiting. Having some minimal abdominal discomfort. Physical Exam: Vitals: reviewed GEN: Alert, oriented, NAD CV: Regular rate & rhythm, MATTHIAS II/ Pulm: Nonlabored respiraitons, clear bilaterally ABD: Soft, appropriately tender; BS positive MSK: LBP; mild Neuro: No focal deficits Problem List: -Chronic LBP/L1, L3, L4 Compression Fractures -Cholelithiasis with possible acute cholecystitis s/p laparoscopic cholecystectomy POD #4 -Hypovolemic and Hyponatremia due to Vomiting -Hypokalemia due to Vomiting -Paroxysmal Atrial Fibrillation s/p PPM -History of TIA (2016) -Severe mitral stenosis; TR; severe pulmonary hypertension Plan: -s/p laparoscopic cholecystectomy POD #4; continue with pain control -General surgery consultation appreciated -Continue with cardiac status -Advance diet as tolerated -Nephrology consultation appreciated -Heplock IV -Continue home medications as appropriate -Hold Lovenox; -Strict BP control -Arrange for home O2
--- NOTE | 2023-01-08 11:52 | P.PN ---
Date of Service: 01/08/23 Subjective: Patient is feeling a little bit better today. She was able to eat a little bit. According to the nurse that she did not have any nausea or vomiting. I spoke to the family and they stated that she did have some nausea and this morning. They want to take her home at discharge as they do not want her to go into a nursing facility. We will get physical therapy to work with her little bit. I did update them on her chronic health condition including her mitral valve stenosis and her pulmonary hypertension as well as her tricuspid valve issues. We did talk extensively about her long-term plan of care. They do understand that she is 82 and she does have a lot of chronic medical issues. They are hesitant on doing anything more invasive. So she is having the persistent nausea and vomiting every 48 hours I will have gastroenterology see the patient and see if there is anything else they would recommend. She is on antiemetics as well as Protonix. Physical Exam: Vitals: reviewed GEN: Alert, oriented, NAD CV: Regular rate & rhythm, MATTHIAS II/ Pulm: Nonlabored respiraitons, clear bilaterally ABD: Soft, appropriately tender; BS positive MSK: LBP; mild Neuro: No focal deficits Problem List: -Chronic LBP/L1, L3, L4 Compression Fractures -Cholelithiasis with possible acute cholecystitis s/p laparoscopic cholecystectomy POD #4 -Hypovolemic and Hyponatremia due to Vomiting -Hypokalemia due to Vomiting -Paroxysmal Atrial Fibrillation s/p PPM -History of TIA (2016) -Severe mitral stenosis; TR; severe pulmonary hypertension Plan: -s/p laparoscopic cholecystectomy POD #4; continue with pain control; GI -General surgery consultation appreciated -Continue with cardiac status -Advance diet as tolerated -Nephrology consultation appreciated -Heplock IV -Continue home medications as appropriate -Hold Lovenox; -Strict BP control -Arrange for home O2
[2023-01-08] MEDS ORDERED: POTASSIUM 25 MEQ EFFERV TAB PO ONE (12:21)
[2023-01-08] MEDS ORDERED: ONDANSETRON 4 MG/2 ML VIAL IV ONE (16:36)
--- NOTE | 2023-01-08 20:28 | P.PN ---
Date of Service: 01/08/23 Vital Signs Temp Pulse Resp BP Pulse Ox 98.5 F 107 H 18 177/91 H 98 01/08/23 16:00 01/08/23 19:58 01/08/23 16:00 01/08/23 19:58 01/08/23 16:00 Medications Hydrocodone Bitart/Acetaminophen (Hydrocodone/Apap 7.5/325 Mg Tab) 1 tab PO Q6H PRN PRN Reason: Pain scale 5-7 (Moderate) Last Admin: 01/07/23 20:39 Dose: 1 tab Ascorbic Acid (Ascorbic Acid 500 Mg Tablet) 500 mg PO DAILY [facility] Last Admin: 01/08/23 11:36 Dose: 500 mg Docusate Sodium (Docusate Na 100 Mg Cap) 100 mg PO BID [facility] Last Admin: 01/08/23 11:36 Dose: 100 mg Fentanyl Citrate (Fentanyl Citr 100 Mcg/2 Ml) 12.5 mcg IV Q4H PRN PRN Reason: Pain scale 8-10 (Severe) Last Admin: 01/08/23 02:32 Dose: 12.5 mcg Hydralazine HCl (Hydralazine Hcl 20 Mg/Ml Vial) 10 mg IV Q6HP PRN PRN Reason: Goal to achieve SBP in comment Last Admin: 01/08/23 02:32 Dose: 10 mg Sodium Chloride (Sodium Chloride) 500 mls @ 999 mls/hr IV PRN PRN PRN Reason: bp 85/58 Potassium Chloride/Sodium Chloride (Kcl 20meq/Ns 1000 Ml Iv) 20 meq in 1,000 mls @ 75 mls/hr IV .[id number] [facility] Last Admin: 01/08/23 08:17 Dose: 1,000 mls Lidocaine (Lidocaine 4% Patch) 1 patch TOP DAILY [facility] Last Admin: 01/08/23 11:36 Dose: 1 patch Metoprolol Tartrate (Metoprolol Tar 50 Mg Tab) 50 mg PO BID 6AM 6PM [facility] Last Admin: 01/08/23 19:58 Dose: 50 mg Ondansetron HCl (Ondansetron 4 Mg/2 Ml Vial) 4 mg IV Q4H PRN PRN Reason: NAUSEA / VOMITING Last Admin: 01/08/23 13:26 Dose: 4 mg Pantoprazole Sodium (Pantoprazole 40 Mg Inj) 40 mg IVP Q12HR [facility]; Protocol Last Admin: 01/08/23 08:17 Dose: 40 mg Sodium Chloride (Sodium Chloride 0.9% 10ml Inj) 10 ml IV UD PRN PRN Reason: Diluant Last Admin: 01/02/23 08:42 Dose: 10 ml Assessment/ Plan: Nephrology No dyspnea No chest pain N/V this morning Anorexia No acute events overnight Vitals, medications, blood work and imaging reviewed in the chart. General: In no apparent distress, Oriented x3, Cooperative HEENT: Atraumatic Neck: Supple Respiratory: Clear to auscultation bilaterally Cardiovascular: No edema, Regular rate/rhythm Gastrointestinal: Soft and benign, Non-distended Musculoskeletal: No clubbing, No contractures Integumentary: No rashes, No cyanosis Neurological: Normal speech Blood work reviewed in the chart. Imagings Data: EXAM DESCRIPTION: CT - Abdomen Pelvis W Contrast - 12/30/2022 1:32 pm CLINICAL HISTORY: Abdominal pain COMPARISON: 2014 TECHNIQUE: Computed axial tomography of the abdomen pelvis was obtained. 100 cc Isovue-300 was administered intravenously. Oral contrast was not requested which limits evaluation of bowel and appendix All CT scans are performed using dose optimization technique as appropriate and may include automated exposure control or mA/KV adjustment according to patient size. FINDINGS: A small to moderate hernia Liver, pancreas, adrenals and kidneys unremarkable Splenic granulomata. 1.5 centimeter splenic cyst. Gallbladder is distended. Bladder is distended. No adnexal mass. Diverticula stem from the colon without visualization diverticulitis. Compression fractures involve vertebral bodies of L1, L3 and L4. L1 compression is marked. These probably are old IMPRESSION: Gallbladder distention Bladder distention LEFT VENTRICULAR WALL MOTION: TACHYCARDIA WITH NORMAL WALL MOTION DOPPLER/COLOR FLOW: SEE BELOW COMMENTS: 1. STUDY IS POOR QUALITY DUE TO TACHYCARDIA 2. LEFT VENTRICULAR EJECTION FRACTION IS NORMAL GREATER THAN 60% 3. LEFT ATRIAL ENLARGEMENT 4. MITRAL VALVE STENOSIS AND MITRAL REGURGITATION ARE PRESENT 5. SEVERE TRICUSPID REGURGITATION 6. SEVERE PULMONARY HYPERTENSION WITH RIGHT VENTRICULAR SYSTOLIC PRESSURE OF 85 mmHg PLUS RIGHT ATRIAL PRESSURE Conclusions/Impression: Hyponatremia -Encourage nutrition Hypokalemia -Replete as ordered Hypophosphatemia -Encourage nutrition -Replete as ordered HTN -Continue metoprolol -Hydralazine prn Mitral Stenosis, severe Severe TR, severe Pulmonary HTN, severe -Continue Metoprolol Anemia in chronic illness -Monitor H&H -Transfuse PRBC prn Hospitalist note reviewed
[2023-01-09] MEDS: NS KCL 20MEQ 20 MEQ/1,000 ML BAG IV SCH ×3 (00:06→20:06)
[2023-01-09] MEDS: HYDRALAZINE HCL 20 MG/ML VIAL IV PRN (04:27)
[2023-01-09] MEDS: HYDROCODONE/APAP 7.5/325 MG TAB PO PRN ×2 (05:23→23:28)
[2023-01-09] MEDS: ONDANSETRON 4 MG/2 ML VIAL IV PRN ×3 (05:31→23:39)
[2023-01-09] MEDS: METOPROLOL TAR 50 MG TAB PO SCH ×2 (07:37→18:30)
[2023-01-09] MEDS ORDERED: POTASSIUM CL 40 MEQ in NA CHLORIDE 0.9% 500 ML IV SCH (08:00)
[2023-01-09] MEDS ORDERED: propofoL 200 MG/20 ML VIAL IV ONE (08:23)
[2023-01-09] MEDS ORDERED: LIDOCAINE 1% MPF 5 ML VIAL ONE (08:23)
[2023-01-09] MEDS ORDERED: NA CHLORIDE 0.9% 1,000 ML ONE (08:25)
[2023-01-09] MEDS: ASCORBIC ACID 500 MG TABLET PO SCH (10:39)
[2023-01-09] MEDS: PANTOPRAZOLE 40 MG INJ IVP SCH ×2 (10:39→20:07)
[2023-01-09] MEDS: DOCUSATE NA 100 MG CAP PO SCH ×2 (10:39→20:07)
[2023-01-09] MEDS: LIDOCAINE 4% PATCH TOP SCH (10:55)
--- NOTE | 2023-01-09 11:59 | EKG ---
Test Date: 2023-01-07 Test Time: 13:46:42 Tenant Selector: JT MEASUREMENT RESULTS: Intervals: Rate: 102 OH: 168 QRSD: 88 QT: 366 QTc: 477 Dilliner: P: 65 OH: 168 QRS: 92 T: 12 INTERPRETIVE STATEMENTS: Sinus tachycardia with premature atrial complexes Rightward axis Low voltage QRS RSR' or QR pattern in V1 suggests right ventricular conduction delay T wave abnormality, consider inferior ischemia Abnormal ECG Compared to ECG 01/02/2023 08:03:13 Low QRS voltage now present RSR' in V1 or V2 now present T-wave abnormality now present Possible ischemia now present Sinus rhythm no longer present Fusion complex(es) no longer present Ventricular premature complex(es) no longer present Electronically Signed On 01-09-23 11:54:51 CDT by Allen Flores
--- NOTE | 2023-01-09 18:23 | P.PN ---
Subjective Date of Service: 01/09/23 Chief Complaint: Abdominal pain, back pain, cholecystitis No acute events overnight. She reports that her nausea/vomiting has improved. She underwent EGD this morning with Dr. Cannon, who reported a large hiatal hernia and white plaques along the esophagus. He is concerned that she may have Alexia esophagitis. He has recommended fluconazole, pantoprazole, and sucralfate. She denies any fevers, chills, chest pain, or shortness of breath. Review of Systems 10-point ROS is otherwise unremarkable General: Weakness (generalized) Gastrointestinal: Nausea Physical Examination - Vital Signs Temperature: 97.2 F Blood Pressure: 168/83 Pulse: 86 Respirations: 18 Pulse Ox (%): 95 - Physical Exam General: Alert, In no apparent distress, Oriented x3 HEENT: Atraumatic, Mucous membr. moist/pink, Sclerae nonicteric Neck: JVD not distended Respiratory: Clear to auscultation bilaterally, Normal air movement Cardiovascular: No edema, Regular rate/rhythm, Normal S1 S2, No gallops, No rubs, No murmurs Gastrointestinal: Normal bowel sounds, Soft and benign, Non-distended, No tenderness, No rebound, No guarding, Other (surgical site covered in clean dressing) Musculoskeletal: No clubbing Integumentary: No rashes Neurological: Normal speech, Normal affect Assessment And Plan - Plan # Intractable Nausea and Vomiting with concern for Alexia Esophagitis # Cholelithiasis with Possible Acute Cholecystitis s/p Laparaoscopic Cholecystectomy # L1, L3, L4 Compression Fractures - Radiology: - CT abdomen/pelvis = "gallbladder distention. Bladder distention." - US abdomen = "Cholelithiasis" - Management plan: - General Surgery consulted and spoke with Dr. Everett - S/P laparoscopic cholecystectomy on 01/02 - Gastroenterology consulted and spoke with Dr. Cannon - S/P EGD on 01/09 - Revealed large hiatal hernia, with concern for Alexia esophagitis - Started pantoprazole, fluconazole, and sucralfate - As needed pain medication + anti-emetics - Advance diet as tolerated # Likely Hypovolemic Hyponatremia due to Vomiting - resolved # Hypokalemia due to Vomiting - Nephrology consulted - recommendations appreciated # Paroxysmal Atrial Fibrillation s/p PPM # History of Transient Ischemic Attack (2016) # Severe Mitral Stenosis # Severe Pulmonary Hypertension - Switch home apixaban to enoxaparin while hospitalized Keron Yin M.D.
[2023-01-09] MEDS: FLUCONAZOLE 200mg IVPB 200 MG/100 ML BAG IV SCH (20:07)
[2023-01-09] MEDS: SUCRALFATE 1GM/10ML UCUP PO SCH (20:07)
[2023-01-09] MEDS: ENSURE CLEAR 200 ML CAN PO SCH (20:07)
--- NOTE | 2023-01-09 21:23 | P.PN ---
Date of Service: 01/09/23 Vital Signs Temp Pulse Resp BP Pulse Ox 97.2 F 86 18 168/83 H 95 01/09/23 18:51 01/09/23 18:51 01/09/23 18:51 01/09/23 18:51 01/09/23 18:51 Medications Hydrocodone Bitart/Acetaminophen (Hydrocodone/Apap 7.5/325 Mg Tab) 1 tab PO Q6H PRN PRN Reason: Pain scale 5-7 (Moderate) Last Admin: 01/09/23 05:23 Dose: 1 tab Ascorbic Acid (Ascorbic Acid 500 Mg Tablet) 500 mg PO DAILY [facility] Last Admin: 01/09/23 10:39 Dose: 500 mg Docusate Sodium (Docusate Na 100 Mg Cap) 100 mg PO BID [facility] Last Admin: 01/09/23 20:07 Dose: 100 mg Enteral Nutritional Formula (Ensure Clear 200 Ml Can) 237 ml PO BID [facility] Last Admin: 01/09/23 20:07 Dose: 237 ml Fentanyl Citrate (Fentanyl Citr 100 Mcg/2 Ml) 12.5 mcg IV Q4H PRN PRN Reason: Pain scale 8-10 (Severe) Last Admin: 01/08/23 02:32 Dose: 12.5 mcg Hydralazine HCl (Hydralazine Hcl 20 Mg/Ml Vial) 10 mg IV Q6HP PRN PRN Reason: Goal to achieve SBP in comment Last Admin: 01/09/23 04:27 Dose: 10 mg Sodium Chloride (Sodium Chloride) 500 mls @ 999 mls/hr IV PRN PRN PRN Reason: bp 85/58 Potassium Chloride/Sodium Chloride (Kcl 20meq/Ns 1000 Ml Iv) 20 meq in 1,000 mls @ 75 mls/hr IV .[id number] [facility] Last Admin: 01/09/23 20:06 Dose: 1,000 mls Fluconazole (Diflucan 200 Mg/100 Ml Ivpb (Premix)) 200 mg in 100 mls @ 100 mls/hr IV Q24H [facility]; Protocol Stop: 01/19/23 20:01 Last Admin: 01/09/23 20:07 Dose: 100 mls Lidocaine (Lidocaine 4% Patch) 1 patch TOP DAILY [facility] Last Admin: 01/09/23 10:55 Dose: 1 patch Metoprolol Tartrate (Metoprolol Tar 50 Mg Tab) 50 mg PO BID 6AM 6PM [facility] Last Admin: 01/09/23 18:30 Dose: 50 mg Ondansetron HCl (Ondansetron 4 Mg/2 Ml Vial) 4 mg IV Q4H PRN PRN Reason: NAUSEA / VOMITING Last Admin: 01/09/23 20:07 Dose: 4 mg Pantoprazole Sodium (Pantoprazole 40 Mg Inj) 40 mg IVP Q12HR [facility]; Protocol Last Admin: 01/09/23 20:07 Dose: 40 mg Sodium Chloride (Sodium Chloride 0.9% 10ml Inj) 10 ml IV UD PRN PRN Reason: Diluant Last Admin: 01/02/23 08:42 Dose: 10 ml Sucralfate (Sucralfate 1gm/10ml Ucup) 1 gm PO QID [facility] Last Admin: 01/09/23 20:07 Dose: 1 gm Assessment/ Plan: Nephrology No dyspnea No chest pain Taken for EGD this morning No acute events overnight Vitals, medications, blood work and imaging reviewed in the chart. General: In no apparent distress, Oriented x3, Cooperative HEENT: Atraumatic Neck: Supple Respiratory: Clear to auscultation bilaterally Cardiovascular: No edema, Regular rate/rhythm Gastrointestinal: Soft and benign, Non-distended Musculoskeletal: No clubbing, No contractures Integumentary: No rashes, No cyanosis Neurological: Normal speech Blood work reviewed in the chart. Imagings Data: EXAM DESCRIPTION: CT - Abdomen Pelvis W Contrast - 12/30/2022 1:32 pm CLINICAL HISTORY: Abdominal pain COMPARISON: 2014 TECHNIQUE: Computed axial tomography of the abdomen pelvis was obtained. 100 cc Isovue-300 was administered intravenously. Oral contrast was not requested which limits evaluation of bowel and appendix All CT scans are performed using dose optimization technique as appropriate and may include automated exposure control or mA/KV adjustment according to patient size. FINDINGS: A small to moderate hernia Liver, pancreas, adrenals and kidneys unremarkable Splenic granulomata. 1.5 centimeter splenic cyst. Gallbladder is distended. Bladder is distended. No adnexal mass. Diverticula stem from the colon without visualization diverticulitis. Compression fractures involve vertebral bodies of L1, L3 and L4. L1 compression is marked. These probably are old IMPRESSION: Gallbladder distention Bladder distention LEFT VENTRICULAR WALL MOTION: TACHYCARDIA WITH NORMAL WALL MOTION DOPPLER/COLOR FLOW: SEE BELOW COMMENTS: 1. STUDY IS POOR QUALITY DUE TO TACHYCARDIA 2. LEFT VENTRICULAR EJECTION FRACTION IS NORMAL GREATER THAN 60% 3. LEFT ATRIAL ENLARGEMENT 4. MITRAL VALVE STENOSIS AND MITRAL REGURGITATION ARE PRESENT 5. SEVERE TRICUSPID REGURGITATION 6. SEVERE PULMONARY HYPERTENSION WITH RIGHT VENTRICULAR SYSTOLIC PRESSURE OF 85 mmHg PLUS RIGHT ATRIAL PRESSURE Conclusions/Impression: Hyponatremia -Encourage nutrition Hypokalemia -Replete as ordered Hypophosphatemia -Encourage nutrition -Replete as ordered HTN -Continue metoprolol -Hydralazine prn Mitral Stenosis, severe Severe TR, severe Pulmonary HTN, severe -Continue Metoprolol Anemia in chronic illness -Monitor H&H -Transfuse PRBC prn Candidal Esophagitis -Continue Diflucan Hospitalist note reviewed Case reviewed with Dr. Yin
[2023-01-09] MEDS ORDERED: KCL 20 MEQ/100 mL IVPB 20 MEQ/100 ML BAG IV SCH (23:00)
[2023-01-10 03:40] LABS: Potassium 3.9 mEq/L (3.5-5.1)
[2023-01-10] MEDS: ONDANSETRON 4 MG/2 ML VIAL IV PRN ×4 (04:58→20:13)
[2023-01-10] MEDS: METOPROLOL TAR 50 MG TAB PO SCH ×2 (05:00→17:09)
[2023-01-10] MEDS: NS KCL 20MEQ 20 MEQ/1,000 ML BAG IV SCH ×2 (06:47→20:15)
[2023-01-10] MEDS: SUCRALFATE 1GM/10ML UCUP PO SCH ×5 (09:00→21:00)
[2023-01-10] MEDS: ENSURE CLEAR 200 ML CAN PO SCH ×2 (09:00→20:15)
[2023-01-10] MEDS: ASCORBIC ACID 500 MG TABLET PO SCH (09:30)
[2023-01-10] MEDS: DOCUSATE NA 100 MG CAP PO SCH ×3 (09:30→21:00)
[2023-01-10] MEDS: PANTOPRAZOLE 40 MG INJ IVP SCH ×2 (09:31→20:13)
[2023-01-10] MEDS: LIDOCAINE 4% PATCH TOP SCH (09:32)
[2023-01-10] MEDS: HYDROCODONE/APAP 7.5/325 MG TAB PO PRN (13:07)
--- NOTE | 2023-01-10 17:25 | P.PN ---
Subjective Date of Service: 01/10/23 Chief Complaint: Abdominal pain, back pain, cholecystitis She states that the medications seem to have helped her nausea, but it is still occurring intermittently. She states that she is not interested in being discharged to a SNF. Base on her PT evaluation yesterday, she does not appear strong enough to be discharged home. PT will work with her again to re-assess. Appreciate CM assistance with arranging Home Health. She denies any fevers, chills, chest pain, or shortness of breath. Review of Systems 10-point ROS is otherwise unremarkable General: Weakness (generalized) Gastrointestinal: Nausea Physical Examination - Vital Signs Temperature: 97.4 F Blood Pressure: 161/76 Pulse: 92 Respirations: 18 Pulse Ox (%): 96 - Physical Exam General: Alert, In no apparent distress, Oriented x3 HEENT: Atraumatic, Mucous membr. moist/pink, Sclerae nonicteric Neck: JVD not distended Respiratory: Clear to auscultation bilaterally, Normal air movement Cardiovascular: No edema, Regular rate/rhythm, Normal S1 S2, No gallops, No rubs, No murmurs Gastrointestinal: Normal bowel sounds, Soft and benign, Non-distended, No tenderness, No rebound, No guarding Musculoskeletal: No clubbing Integumentary: No rashes Neurological: Normal speech, Normal affect Assessment And Plan - Plan # Intractable Nausea and Vomiting with concern for Alexia Esophagitis # Cholelithiasis with Possible Acute Cholecystitis s/p Laparaoscopic Cholecystectomy # L1, L3, L4 Compression Fractures - Radiology: - CT abdomen/pelvis = "gallbladder distention. Bladder distention." - US abdomen = "Cholelithiasis" - Management plan: - General Surgery consulted and spoke with Dr. Everett - S/P laparoscopic cholecystectomy on 01/02 - Gastroenterology consulted and spoke with Dr. Cannon - S/P EGD on 01/09 - Revealed large hiatal hernia, with concern for Alexia esophagitis - Started pantoprazole, fluconazole, and sucralfate - As needed pain medication + anti-emetics - Advance diet as tolerated # Deconditioning - PT consulted - recs appreciated # Likely Hypovolemic Hyponatremia due to Vomiting - resolved # Hypokalemia due to Vomiting - Nephrology consulted - recommendations appreciated # Paroxysmal Atrial Fibrillation s/p PPM # History of Transient Ischemic Attack (2016) # Severe Mitral Stenosis # Severe Pulmonary Hypertension - Switch home apixaban to enoxaparin while hospitalized Keron Yin M.D.
[2023-01-10] MEDS: ENOXAPARIN 60 MG/0.6 ML SQ SCH (20:13)
[2023-01-10] MEDS: FLUCONAZOLE 200mg IVPB 200 MG/100 ML BAG IV SCH (20:13)
[2023-01-10] MEDS: HYDRALAZINE HCL 20 MG/ML VIAL IV PRN (20:13)
--- NOTE | 2023-01-10 21:12 | P.PN ---
Date of Service: 01/10/23 Vital Signs Temp Pulse Resp BP Pulse Ox 97.4 F 86 20 168/101 H 96 01/10/23 20:00 01/10/23 20:00 01/10/23 20:00 01/10/23 20:00 01/10/23 20:00 Medications Hydrocodone Bitart/Acetaminophen (Hydrocodone/Apap 7.5/325 Mg Tab) 1 tab PO Q6H PRN PRN Reason: Pain scale 5-7 (Moderate) Last Admin: 01/10/23 13:07 Dose: 1 tab Ascorbic Acid (Ascorbic Acid 500 Mg Tablet) 500 mg PO DAILY [facility] Last Admin: 01/10/23 09:30 Dose: 500 mg Docusate Sodium (Docusate Na 100 Mg Cap) 100 mg PO BID [facility] Last Admin: 01/10/23 20:15 Dose: 100 mg Enoxaparin Sodium (Enoxaparin 60 Mg/0.6 Ml) 60 mg SQ Q12HR [facility] Last Admin: 01/10/23 20:13 Dose: 60 mg Enteral Nutritional Formula (Ensure Clear 200 Ml Can) 237 ml PO BID [facility] Last Admin: 01/10/23 20:15 Dose: Not Given Fentanyl Citrate (Fentanyl Citr 100 Mcg/2 Ml) 12.5 mcg IV Q4H PRN PRN Reason: Pain scale 8-10 (Severe) Last Admin: 01/08/23 02:32 Dose: 12.5 mcg Hydralazine HCl (Hydralazine Hcl 20 Mg/Ml Vial) 10 mg IV Q6HP PRN PRN Reason: Goal to achieve SBP in comment Last Admin: 01/10/23 20:13 Dose: 10 mg Sodium Chloride (Sodium Chloride) 500 mls @ 999 mls/hr IV PRN PRN PRN Reason: bp 85/58 Potassium Chloride/Sodium Chloride (Kcl 20meq/Ns 1000 Ml Iv) 20 meq in 1,000 mls @ 75 mls/hr IV .[id number] [facility] Last Admin: 01/10/23 20:15 Dose: 1,000 mls Fluconazole (Diflucan 200 Mg/100 Ml Ivpb (Premix)) 200 mg in 100 mls @ 100 mls/hr IV Q24H [facility]; Protocol Stop: 01/19/23 20:01 Last Admin: 01/10/23 20:13 Dose: 100 mls Lidocaine (Lidocaine 4% Patch) 1 patch TOP DAILY [facility] Last Admin: 01/10/23 09:32 Dose: 1 patch Metoprolol Tartrate (Metoprolol Tar 50 Mg Tab) 50 mg PO BID 6AM 6PM [facility] Last Admin: 01/10/23 17:09 Dose: 50 mg Ondansetron HCl (Ondansetron 4 Mg/2 Ml Vial) 4 mg IV Q4H PRN PRN Reason: NAUSEA / VOMITING Last Admin: 01/10/23 20:13 Dose: 4 mg Pantoprazole Sodium (Pantoprazole 40 Mg Inj) 40 mg IVP Q12HR [facility]; Protocol Last Admin: 01/10/23 20:13 Dose: 40 mg Sodium Chloride (Sodium Chloride 0.9% 10ml Inj) 10 ml IV UD PRN PRN Reason: Diluant Last Admin: 01/02/23 08:42 Dose: 10 ml Sucralfate (Sucralfate 1gm/10ml Ucup) 1 gm PO QID [facility] Last Admin: 01/10/23 20:15 Dose: 1 gm Assessment/ Plan: Nephrology No dyspnea No chest pain Poor appetite No acute events overnight Vitals, medications, blood work and imaging reviewed in the chart. General: In no apparent distress, Oriented x3, Cooperative HEENT: Atraumatic Neck: Supple Respiratory: Clear to auscultation bilaterally Cardiovascular: No edema, Regular rate/rhythm Gastrointestinal: Soft and benign, Non-distended Musculoskeletal: No clubbing, No contractures Integumentary: No rashes, No cyanosis Neurological: Normal speech Blood work reviewed in the chart. Imagings Data: EXAM DESCRIPTION: CT - Abdomen Pelvis W Contrast - 12/30/2022 1:32 pm CLINICAL HISTORY: Abdominal pain COMPARISON: 2014 TECHNIQUE: Computed axial tomography of the abdomen pelvis was obtained. 100 cc Isovue-300 was administered intravenously. Oral contrast was not requested which limits evaluation of bowel and appendix All CT scans are performed using dose optimization technique as appropriate and may include automated exposure control or mA/KV adjustment according to patient size. FINDINGS: A small to moderate hernia Liver, pancreas, adrenals and kidneys unremarkable Splenic granulomata. 1.5 centimeter splenic cyst. Gallbladder is distended. Bladder is distended. No adnexal mass. Diverticula stem from the colon without visualization diverticulitis. Compression fractures involve vertebral bodies of L1, L3 and L4. L1 compression is marked. These probably are old IMPRESSION: Gallbladder distention Bladder distention LEFT VENTRICULAR WALL MOTION: TACHYCARDIA WITH NORMAL WALL MOTION DOPPLER/COLOR FLOW: SEE BELOW COMMENTS: 1. STUDY IS POOR QUALITY DUE TO TACHYCARDIA 2. LEFT VENTRICULAR EJECTION FRACTION IS NORMAL GREATER THAN 60% 3. LEFT ATRIAL ENLARGEMENT 4. MITRAL VALVE STENOSIS AND MITRAL REGURGITATION ARE PRESENT 5. SEVERE TRICUSPID REGURGITATION 6. SEVERE PULMONARY HYPERTENSION WITH RIGHT VENTRICULAR SYSTOLIC PRESSURE OF 85 mmHg PLUS RIGHT ATRIAL PRESSURE Conclusions/Impression: Hyponatremia -Encourage nutrition Hypokalemia -Replete prn Hypophosphatemia -Encourage nutrition -Replete as ordered HTN -Continue metoprolol -Hydralazine prn Mitral Stenosis, severe Severe TR, severe Pulmonary HTN, severe -Continue Metoprolol Anemia in chronic illness -Monitor H&H -Transfuse PRBC prn Candidal Esophagitis -Continue Diflucan Hospitalist note reviewed Case reviewed with Dr. Yin
[2023-01-10] MEDS ORDERED: PROMETHAZINE INJ 25 MG/ML AMP IV ONE (23:19)
[2023-01-10] MEDS ORDERED: PROMETHAZINE INJ 25 MG/ML AMP ONE (23:34)
[2023-01-11] MEDS: ONDANSETRON 4 MG/2 ML VIAL IV PRN ×3 (01:06→14:10)
[2023-01-11] MEDS: FENTANYL CITR 100 MCG/2 ML IV PRN (01:06)
[2023-01-11] MEDS ORDERED: NA CIT/CITRIC AC 30 ML ORAL UDC PO ONE (02:27)
[2023-01-11 03:30] LABS: Magnesium 1.7 mg/dL (1.6-2.4); Potassium 3.3 mEq/L (3.5-5.1)
[2023-01-11 03:45] LABS: Phosphorus 1.5 mg/dL (2.5-4.9)
[2023-01-11] MEDS ORDERED: MAGNESIUM SULFATE 1 gm IVPB 1 GM/100 ML BAG IV ONE (03:50)
[2023-01-11] MEDS ORDERED: POTASSIUM PHOS IN 0.9 % NACL 15 MMOL/250 ML BAG IV ONE (03:52)
[2023-01-11] MEDS ORDERED: FUROSEMIDE 20 MG/ 2ML VIAL IV ONE (05:37)
[2023-01-11] MEDS: METOPROLOL TAR 50 MG TAB PO SCH ×3 (06:00→17:09)
[2023-01-11] MEDS ORDERED: METOCLOPRAMIDE 10 MG/2mL INJ IV ONE (06:00)
--- NOTE | 2023-01-11 08:20 | RAD REPORT ---
EXAM DESCRIPTION: RAD - Chest Single View - 01/11/2023 6:40 am CLINICAL HISTORY: volume overload Chest pain. COMPARISON: Chest Single View dated 01/05/2023; Chest Single View dated 04/18/2022; Chest Single View dated 04/16/2022; Chest Single View dated 06/15/2021 FINDINGS: Portable technique limits examination quality. Mild interstitial pulmonary edema is seen. Small left and moderate right pleural effusion. The heart is moderately enlarged with a single lead pacer/ defibrillator device. IMPRESSION: Moderate CHF versus volume overload pattern is moderately progressive since 01/05/2023 c omparative study.
[2023-01-11] MEDS ORDERED: KCL 20 MEQ/100 mL IVPB 20 MEQ/100 ML BAG IV SCH (09:00)
[2023-01-11] MEDS: ENSURE CLEAR 200 ML CAN PO SCH ×2 (09:00→21:00)
[2023-01-11] MEDS: SUCRALFATE 1GM/10ML UCUP PO SCH ×4 (09:00→16:43)
[2023-01-11] MEDS: DOCUSATE NA 100 MG CAP PO SCH ×2 (09:26→22:23)
[2023-01-11] MEDS: ASCORBIC ACID 500 MG TABLET PO SCH (09:27)
[2023-01-11] MEDS: PANTOPRAZOLE 40 MG INJ IVP SCH ×2 (09:28→22:24)
[2023-01-11] MEDS: HYDRALAZINE HCL 20 MG/ML VIAL IV PRN (09:29)
[2023-01-11] MEDS: ENOXAPARIN 60 MG/0.6 ML SQ SCH ×2 (09:29→22:23)
[2023-01-11] MEDS: LIDOCAINE 4% PATCH TOP SCH (09:30)
--- NOTE | 2023-01-11 10:54 | P.PN ---
Date of Service: 01/11/23 Vital Signs Temp Pulse Resp BP Pulse Ox 97.5 F 102 H 18 170/74 H 97 01/11/23 08:00 01/11/23 08:00 01/11/23 08:00 01/11/23 08:00 01/11/23 08:00 Medications Hydrocodone Bitart/Acetaminophen (Hydrocodone/Apap 7.5/325 Mg Tab) 1 tab PO Q6H PRN PRN Reason: Pain scale 5-7 (Moderate) Last Admin: 01/10/23 13:07 Dose: 1 tab Ascorbic Acid (Ascorbic Acid 500 Mg Tablet) 500 mg PO DAILY [facility] Last Admin: 01/11/23 09:27 Dose: 500 mg Docusate Sodium (Docusate Na 100 Mg Cap) 100 mg PO BID [facility] Last Admin: 01/11/23 09:26 Dose: 100 mg Enoxaparin Sodium (Enoxaparin 60 Mg/0.6 Ml) 60 mg SQ Q12HR [facility] Last Admin: 01/11/23 09:29 Dose: 60 mg Enteral Nutritional Formula (Ensure Clear 200 Ml Can) 237 ml PO BID [facility] Last Admin: 01/11/23 09:00 Dose: Not Given Fentanyl Citrate (Fentanyl Citr 100 Mcg/2 Ml) 12.5 mcg IV Q4H PRN PRN Reason: Pain scale 8-10 (Severe) Last Admin: 01/11/23 01:06 Dose: 12.5 mcg Hydralazine HCl (Hydralazine Hcl 20 Mg/Ml Vial) 10 mg IV Q6HP PRN PRN Reason: Goal to achieve SBP in comment Last Admin: 01/11/23 09:29 Dose: 10 mg Sodium Chloride (Sodium Chloride) 500 mls @ 999 mls/hr IV PRN PRN PRN Reason: bp 85/58 Fluconazole (Diflucan 200 Mg/100 Ml Ivpb (Premix)) 200 mg in 100 mls @ 100 mls/hr IV Q24H [facility]; Protocol Stop: 01/19/23 20:01 Last Admin: 01/10/23 20:13 Dose: 100 mls Potassium Chloride (Kcl 20 Meq/100 Ml Ivpb (Premix)) 20 meq in 100 mls @ 50 mls/hr IV 1X [facility]; Protocol Stop: 01/11/23 10:59 Last Admin: 01/11/23 09:29 Dose: 100 mls Lidocaine (Lidocaine 4% Patch) 1 patch TOP DAILY [facility] Last Admin: 01/11/23 09:30 Dose: 1 patch Metoprolol Tartrate (Metoprolol Tar 50 Mg Tab) 50 mg PO BID 6AM 6PM [facility] Last Admin: 01/11/23 06:00 Dose: Not Given Ondansetron HCl (Ondansetron 4 Mg/2 Ml Vial) 4 mg IV Q4H PRN PRN Reason: NAUSEA / VOMITING Last Admin: 01/11/23 06:02 Dose: 4 mg Pantoprazole Sodium (Pantoprazole 40 Mg Inj) 40 mg IVP Q12HR [facility]; Protocol Last Admin: 01/11/23 09:28 Dose: 40 mg Sodium Chloride (Sodium Chloride 0.9% 10ml Inj) 10 ml IV UD PRN PRN Reason: Diluant Last Admin: 01/02/23 08:42 Dose: 10 ml Sucralfate (Sucralfate 1gm/10ml Ucup) 1 gm PO QID [facility] Last Admin: 01/11/23 09:00 Dose: Not Given Assessment/ Plan: Nephrology No dyspnea No chest pain Poor appetite with nausea Malaise No acute events overnight Vitals, medications, blood work and imaging reviewed in the chart. General: In no apparent distress, Oriented x3, Cooperative HEENT: Atraumatic Neck: Supple Respiratory: Clear to auscultation bilaterally Cardiovascular: No edema, Regular rate/rhythm Gastrointestinal: Tender distended abd Musculoskeletal: No clubbing, No contractures Integumentary: No rashes, No cyanosis Neurological: Normal speech Blood work reviewed in the chart. Imagings Data: EXAM DESCRIPTION: CT - Abdomen Pelvis W Contrast - 12/30/2022 1:32 pm CLINICAL HISTORY: Abdominal pain COMPARISON: 2014 TECHNIQUE: Computed axial tomography of the abdomen pelvis was obtained. 100 cc Isovue-300 was administered intravenously. Oral contrast was not requested which limits evaluation of bowel and appendix All CT scans are performed using dose optimization technique as appropriate and may include automated exposure control or mA/KV adjustment according to patient size. FINDINGS: A small to moderate hernia Liver, pancreas, adrenals and kidneys unremarkable Splenic granulomata. 1.5 centimeter splenic cyst. Gallbladder is distended. Bladder is distended. No adnexal mass. Diverticula stem from the colon without visualization diverticulitis. Compression fractures involve vertebral bodies of L1, L3 and L4. L1 compression is marked. These probably are old IMPRESSION: Gallbladder distention Bladder distention [id number] EXAM DESCRIPTION: RAD - Chest Single View - 01/11/2023 6:40 am CLINICAL HISTORY: volume overload Chest pain. COMPARISON: Chest Single View dated 01/05/2023; Chest Single View dated 04/18/2022; Chest Single View dated 04/16/2022; Chest Single View dated 06/15/2021 FINDINGS: Portable technique limits examination quality. Mild interstitial pulmonary edema is seen. Small left and moderate right pleural effusion. The heart is moderately enlarged with a single lead pacer/ defibrillator device. IMPRESSION: Moderate CHF versus volume overload pattern is moderately progressive since 01/05/2023 comparative study. LEFT VENTRICULAR WALL MOTION: TACHYCARDIA WITH NORMAL WALL MOTION DOPPLER/COLOR FLOW: SEE BELOW COMMENTS: 1. STUDY IS POOR QUALITY DUE TO TACHYCARDIA 2. LEFT VENTRICULAR EJECTION FRACTION IS NORMAL GREATER THAN 60% 3. LEFT ATRIAL ENLARGEMENT 4. MITRAL VALVE STENOSIS AND MITRAL REGURGITATION ARE PRESENT 5. SEVERE TRICUSPID REGURGITATION 6. SEVERE PULMONARY HYPERTENSION WITH RIGHT VENTRICULAR SYSTOLIC PRESSURE OF 85 mmHg PLUS RIGHT ATRIAL PRESSURE Conclusions/Impression: Hyponatremia -Encourage nutrition Hypokalemia -Replete as ordered Hypophosphatemia -Encourage nutrition -Replete as ordered HTN -Continue metoprolol -Hydralazine prn Mitral Stenosis, severe Severe TR, severe Pulmonary HTN, severe -Continue Metoprolol Anemia in chronic illness -Monitor H&H -Transfuse PRBC prn Candidal Esophagitis -Continue Diflucan Slow transit constipation -Abd xray for abd tenderness consistent with constipation -Continue Colace -MOM X1 dose Hospitalist note reviewed Case reviewed with Dr. Yin
--- NOTE | 2023-01-11 11:49 | RAD REPORT ---
EXAM DESCRIPTION: RAD - Abdomen Single View - 01/11/2023 11:32 am CLINICAL HISTORY: Abd tenderness with N/V Pain COMPARISON: Abdomen Exam Limited dated 12/30/2022 FINDINGS: The bowel gas pattern is non-obstructive. No evidence of free air or pneumatosis. No suspi cious calcifications. Mild degenerative changes are present throughout the lumbar spine. Moderate stool is present retained throughout the colon. IMPRESSION: Moderate stool is present throughout the colon.
--- NOTE | 2023-01-11 16:16 | P.PN ---
Subjective Date of Service: 01/11/23 Chief Complaint: Abdominal pain, back pain, cholecystitis This morning, she reported nausea and shortness of breath. Her chest x-ray was concerning for pulmonary edema, for which she was given furosemide this morning. She states that this did help her breathing. She was eating clear liquid diet this morning, will attempt to advance to full liquid. She denies any fevers, chills, chest pain. Review of Systems 10-point ROS is otherwise unremarkable General: Weakness (generalized) Respiratory: Shortness of Breath Gastrointestinal: Nausea Physical Examination - Vital Signs Temperature: 97.5 F Blood Pressure: 170/74 Pulse: 102 Respirations: 18 Pulse Ox (%): 97 - Physical Exam General: Alert, In no apparent distress, Oriented x3 HEENT: Atraumatic, Mucous membr. moist/pink, Sclerae nonicteric Neck: JVD not distended Respiratory: Diminished, Crackles/rales (bibasilar) Cardiovascular: Edema (1-2+ BLE), Irregular heart rate/rhythm, Systolic murmur Gastrointestinal: Hypoactive, Soft and benign, Non-distended, No tenderness, No rebound, No guarding Musculoskeletal: No clubbing Integumentary: No rashes Neurological: Normal speech, Normal affect Assessment And Plan - Plan # Intractable Nausea and Vomiting with concern for Alexia Esophagitis # Cholelithiasis with Possible Acute Cholecystitis s/p Laparaoscopic Cholecystectomy # L1, L3, L4 Compression Fractures - Radiology: - CT abdomen/pelvis = "gallbladder distention. Bladder distention." - US abdomen = "Cholelithiasis" - Management plan: - General Surgery consulted and spoke with Dr. Everett - S/P laparoscopic cholecystectomy on 01/02 - Gastroenterology consulted and spoke with Dr. Cannon - S/P EGD on 01/09 - Revealed large hiatal hernia, with concern for Alexia esophagitis - Started pantoprazole, fluconazole, and sucralfate - As needed pain medication + anti-emetics - Advance diet as tolerated # Acute on Chronic Decompensated Diastolic Congestive Heart Failure with Preserved Ejection Fraction # Severe Pulmonary Hypertension # Severe Tricuspid Regurgitation - Consult Cardiology - recommendations appreciated - Transthoracic echocardiogram = "1. study is poor quality due to tachycardia 2. left ventricular ejection fraction is normal greater than 60% 3. left atrial enlargement 4. mitral valve stenosis and mitral regurgitation are present 5. severe tricuspid regurgitation 6. severe pulmonary hypertension with right ventricular systolic pressure of 85 mmHg plus right atrial pressure" - Diuresis with IV furosemide - Continue home metoprolol - Daily weights - Strict I/O # Deconditioning - PT consulted - recs appreciated # Likely Hypovolemic Hyponatremia due to Vomiting - resolved # Hypokalemia due to Vomiting - Nephrology consulted - recommendations appreciated # Paroxysmal Atrial Fibrillation s/p PPM # History of Transient Ischemic Attack (2016) - Switch home apixaban to enoxaparin while hospitalized Keron Yin M.D.
[2023-01-11] MEDS: FUROSEMIDE 20 MG/ 2ML VIAL IV SCH (16:42)
[2023-01-11] MEDS ORDERED: MAGNESIUM HYDROXIDE 8% 30 ML PO ONE (20:43)
[2023-01-11] MEDS: HYDROCODONE/APAP 7.5/325 MG TAB PO PRN (22:22)
[2023-01-11] MEDS: FLUCONAZOLE 200mg IVPB 200 MG/100 ML BAG IV SCH (22:24)
[2023-01-12] MEDS: SUCRALFATE 1GM/10ML UCUP PO SCH ×5 (00:34→20:24)
[2023-01-12 03:21] LABS: Magnesium 1.7 mg/dL (1.6-2.4); Phosphorus 2.7 mg/dL (2.5-4.9)
[2023-01-12 03:33] LABS: Potassium 2.6 mEq/L (3.5-5.1)
[2023-01-12] MEDS ORDERED: POTASSIUM CL 40 MEQ in NA CHLORIDE 0.9% 500 ML IV SCH ×2 (04:00→18:00)
[2023-01-12] MEDS: KCL 20 MEQ/100 mL IVPB 20 MEQ/100 ML BAG IV SCH ×3 (04:06→10:28)
[2023-01-12] MEDS ORDERED: NA CHLORIDE 0.9% 250 ML ONE ×2 (04:13→10:39)
[2023-01-12] MEDS: METOPROLOL TAR 50 MG TAB PO SCH ×2 (05:35→17:51)
[2023-01-12] MEDS: MAGNESIUM OXIDE 400 MG TAB PO SCH ×2 (09:00→20:22)
[2023-01-12] MEDS: ENSURE CLEAR 200 ML CAN PO SCH ×2 (09:00→20:23)
[2023-01-12] MEDS: ASCORBIC ACID 500 MG TABLET PO SCH (10:18)
[2023-01-12] MEDS: DOCUSATE NA 100 MG CAP PO SCH ×2 (10:18→20:21)
[2023-01-12] MEDS: FUROSEMIDE 20 MG/ 2ML VIAL IV SCH (10:19)
[2023-01-12] MEDS: ENOXAPARIN 60 MG/0.6 ML SQ SCH ×2 (10:20→20:21)
[2023-01-12] MEDS: LIDOCAINE 4% PATCH TOP SCH (10:22)
[2023-01-12] MEDS: PANTOPRAZOLE 40 MG INJ IVP SCH ×2 (10:24→20:22)
[2023-01-12] MEDS ORDERED: POTASSIUM 25 MEQ EFFERV TAB PO ONE (10:51)
--- NOTE | 2023-01-12 11:28 | P.PN ---
Nephrology (S) Pt getting three bags of IV KCL for recurrent hypokalemia this AM. Pt seen sitting up in bed, denies dyspnea at rest. Has had some nausea and dry heaves but no vomiting episodes (O) Vitals, medications, blood work and imaging reviewed in the chart. General: Elderly, pale, NAD HEENT: Atraumatic, LFNC Neck: Supple Respiratory: reduced BS at the bases Rt > Lt Cardiovascular: 1+ distal b/l LE edema, non tachy, irregular Gastrointestinal: Soft, mild distention Musculoskeletal: Shins are non tender Integumentary: Some varicose veins Neurological: Awake, alert, no tremors Blood work reviewed in the chart. LEFT VENTRICULAR WALL MOTION: TACHYCARDIA WITH NORMAL WALL MOTION DOPPLER/COLOR FLOW: SEE BELOW COMMENTS: 1. STUDY IS POOR QUALITY DUE TO TACHYCARDIA 2. LEFT VENTRICULAR EJECTION FRACTION IS NORMAL GREATER THAN 60% 3. LEFT ATRIAL ENLARGEMENT 4. MITRAL VALVE STENOSIS AND MITRAL REGURGITATION ARE PRESENT 5. SEVERE TRICUSPID REGURGITATION 6. SEVERE PULMONARY HYPERTENSION WITH RIGHT VENTRICULAR SYSTOLIC PRESSURE OF 85 mmHg PLUS RIGHT ATRIAL PRESSURE Conclusions/Impression: Hypokalemia, recurrent, moderate -If it persists, will check TTKG. Will suspend IV lasix temp. Will start Spironolactone and add an ACEi. Pt receiving IV KCl 20 meq x 3 this AM, will recheck level this afternoon. Target Mg > 2.0 Hypomagnesemia -Cont to replete Mg with IV and oral supplements Hypophosphatemia -Encourage nutrition -Replete as needed HTN -Add ACEi and Spironolactone as mentioned above Mitral Stenosis, severe Severe TR, severe Pulmonary HTN, severe -Continue Metoprolol, add low dose ACEi, add Spironolactone. Temp hold Lasix until K level > 3.5 Dyspnea, related to above, pleural effusion NOS Resp status stable but will cont diuretics but will modify regimen as per above and/or switch lasix to Amiloride (temp) if needed Valentino Kc MD, [facility]
[2023-01-12] MEDS ORDERED: MAGNESIUM SULFATE 1 gm IVPB 1 GM/100 ML BAG IV ONE (12:00)
[2023-01-12] MEDS: SPIRONOLACTONE 25 MG TABLET PO SCH (13:22)
[2023-01-12] MEDS: ENALAPRIL 2.5 MG TAB PO SCH (13:22)
--- NOTE | 2023-01-12 17:29 | P.PN ---
Subjective Date of Service: 01/12/23 Chief Complaint: Abdominal pain, back pain, cholecystitis She appears much improved this morning. She is sitting upright and eating her breakfast. She has some nausea, but this is improved. Her breathing has also improved. She is eager to be discharged, but will need to advance diet. She is not interested in SNF and would like to be discharged home with Home Health. Per PT, she was able to ambulate 45 feet two times. She denies any fevers, chills, chest pain. Review of Systems 10-point ROS is otherwise unremarkable General: Weakness (generalized) Respiratory: Shortness of Breath (minimal) Gastrointestinal: Nausea Physical Examination - Vital Signs Temperature: 98.1 F Blood Pressure: 158/88 Pulse: 89 Respirations: 20 Pulse Ox (%): 95 - Physical Exam General: Alert, In no apparent distress, Oriented x3 HEENT: Atraumatic, Mucous membr. moist/pink, Sclerae nonicteric Neck: JVD not distended Respiratory: Diminished, Crackles/rales (faint bibasilar) Cardiovascular: Edema (1+ BLE), Irregular heart rate/rhythm, Systolic murmur Gastrointestinal: Normal bowel sounds, Soft and benign, Non-distended, No tenderness, No rebound, No guarding Musculoskeletal: No clubbing Integumentary: No rashes Neurological: Normal speech, Normal affect Assessment And Plan - Plan # Intractable Nausea and Vomiting with concern for Alexia Esophagitis # Cholelithiasis with Possible Acute Cholecystitis s/p Laparaoscopic Cholecystectomy # L1, L3, L4 Compression Fractures - Radiology: - CT abdomen/pelvis = "gallbladder distention. Bladder distention." - US abdomen = "Cholelithiasis" - Management plan: - General Surgery consulted and spoke with Dr. Everett - S/P laparoscopic cholecystectomy on 01/02 - Gastroenterology consulted and spoke with Dr. Cannon - S/P EGD on 01/09 - Revealed large hiatal hernia, with concern for Alexia esophagitis - Started pantoprazole, fluconazole, and sucralfate - As needed pain medication + anti-emetics - Advance diet as tolerated # Acute on Chronic Decompensated Diastolic Congestive Heart Failure with P reserved Ejection Fraction # Severe Pulmonary Hypertension # Severe Tricuspid Regurgitation - Consult Cardiology - recommendations appreciated - Transthoracic echocardiogram = "1. study is poor quality due to tachycardia 2. left ventricular ejection fraction is normal greater than 60% 3. left atrial enlargement 4. mitral valve stenosis and mitral regurgitation are present 5. severe tricuspid regurgitation 6. severe pulmonary hypertension with right ventricular systolic pressure of 85 mmHg plus right atrial pressure" - Diuresis with furosemide - Continue home metoprolol - Daily weights - Strict I/O # Deconditioning - PT consulted - recs appreciated # Likely Hypovolemic Hyponatremia due to Vomiting - resolved # Hypokalemia due to Vomiting - Nephrology consulted - recommendations appreciated # Paroxysmal Atrial Fibrillation s/p PPM # History of Transient Ischemic Attack (2016) - Switch home apixaban to enoxaparin while hospitalized Keron Yin M.D.
[2023-01-12] MEDS: FLUCONAZOLE 200mg IVPB 200 MG/100 ML BAG IV SCH (20:20)
[2023-01-13 04:11] LABS: Magnesium 1.9 mg/dL (1.6-2.4); Phosphorus 1.9 mg/dL (2.5-4.9); Potassium 3.6 mEq/L (3.5-5.1)
[2023-01-13] MEDS: METOPROLOL TAR 50 MG TAB PO SCH ×2 (05:12→17:57)
[2023-01-13] MEDS: ONDANSETRON 4 MG/2 ML VIAL IV PRN ×4 (05:12→20:35)
--- NOTE | 2023-01-13 08:20 | RAD REPORT ---
EXAM DESCRIPTION: RAD - Chest Single View - 01/13/2023 8:07 am CLINICAL HISTORY: follow-up COMPARISON: Chest Single View dated 01/11/2023; Chest Single View dated 01/05/2023; Chest Single Vie w dated 04/18/2022; Chest Single View dated 04/16/2022; Abdomen Pelvis W Contrast dated 12/30/2022 FINDINGS: Lines: ICD. Lungs: Prominence of the pulmonary interstitium. Pleural: Similar bilateral pleural effusions which are mild to moderate in size Cardiac: Stable size configuration. Partially obscured by the effusions Mediastinum: Within normal limits. Bones: No acute fractures. Other: None IMPRESSION: Unchanged findings which remain consistent with pulmonary edema/congestive heart failure and similar bilateral mild to moderate effusions.
[2023-01-13] MEDS ORDERED: POTASSIUM CL SA 10 MEQ TAB PO ONE (09:00)
[2023-01-13] MEDS: MAGNESIUM OXIDE 400 MG TAB PO SCH ×2 (09:00→20:35)
[2023-01-13] MEDS: ENSURE CLEAR 200 ML CAN PO SCH ×2 (09:00→20:35)
[2023-01-13] MEDS: PANTOPRAZOLE 40 MG INJ IVP SCH ×2 (09:00→21:46)
[2023-01-13] MEDS: ENOXAPARIN 60 MG/0.6 ML SQ SCH ×2 (09:50→21:47)
[2023-01-13] MEDS: POTASS/SODIUM PHOSPHATE 1 PKT POWD.PACK PO SCH ×3 (09:56→11:49)
[2023-01-13] MEDS: SUCRALFATE 1GM/10ML UCUP PO SCH ×4 (09:56→21:46)
[2023-01-13] MEDS: FENTANYL CITR 100 MCG/2 ML IV PRN (10:03)
[2023-01-13] MEDS: LIDOCAINE 4% PATCH TOP SCH (10:08)
[2023-01-13] MEDS: DOCUSATE NA 100 MG CAP PO SCH ×2 (11:48→20:35)
[2023-01-13] MEDS: ASCORBIC ACID 500 MG TABLET PO SCH (11:48)
[2023-01-13] MEDS: ENALAPRIL 2.5 MG TAB PO SCH (11:49)
[2023-01-13] MEDS: SPIRONOLACTONE 25 MG TABLET PO SCH (11:49)
--- NOTE | 2023-01-13 11:53 | RAD REPORT ---
EXAM DESCRIPTION: RAD - Abdomen 1 View (KUB) - 01/13/2023 11:45 am CLINICAL HISTORY: Esophageal Ulcer/Gastritis COMPARISON: <Comparisons> FINDINGS: Nonobstructive bowel gas pattern. Thoracolumbar curvature.Bilateral pleural effusions and probably underlying atelectasis. Defibrillator.Surgical clips in right upper quadrant. IMPRESSION: Nonobstructive bowel gas pattern.
[2023-01-13] MEDS ORDERED: POLYETHYL GLY 3350 17 GM/DOSE PO PRN (12:41)
--- NOTE | 2023-01-13 12:47 | P.PN ---
Subjective Date of Service: 01/13/23 Chief Complaint: Abdominal pain, back pain, cholecystitis Her symptoms have worsened this morning and she states that she is quite nauseated. She reports abdominal cramping and constipation. Will obtain repeat KUB. In regards to her breathing, this has improved. However, she continues to have some shortness of breath. She denies any fevers, chills, chest pain. Review of Systems 10-point ROS is otherwise unremarkable Cardiovascular: Edema Gastrointestinal: Abdominal Pain, Constipation Physical Examination - Vital Signs Temperature: 98.5 F Blood Pressure: 142/73 Pulse: 92 Respirations: 16 Pulse Ox (%): 95 - Physical Exam General: Alert, In no apparent distress, Oriented x3 HEENT: Atraumatic, Mucous membr. moist/pink, Sclerae nonicteric Neck: JVD not distended Respiratory: Diminished, Crackles/rales (bibasilar) Cardiovascular: Regular rate/rhythm, No murmurs, Edema (1+ BLE) Gastrointestinal: Hypoactive, Soft and benign, Non-distended, No rebound, No guarding, Tenderness (minimal) Musculoskeletal: No clubbing Integumentary: No rashes Neurological: Normal speech, Normal affect Assessment And Plan - Plan # Intractable Nausea and Vomiting with concern for Alexia Esophagitis # Cholelithiasis with Possible Acute Cholecystitis s/p Laparaoscopic Cholecystectomy # L1, L3, L4 Compression Fractures - Radiology: - CT abdomen/pelvis = "gallbladder distention. Bladder distention." - US abdomen = "Cholelithiasis" - Management plan: - General Surgery consulted and spoke with Dr. Everett - S/P laparoscopic cholecystectomy on 01/02 - Gastroenterology consulted and spoke with Dr. Cannon - S/P EGD on 01/09 - Revealed large hiatal hernia, with concern for Alexia esophagitis - Started pantoprazole, fluconazole, and sucralfate - As needed pain medication + anti-emetics - Started bowel regiment for constipation - docusate + polyethylene gylcol - Ordered repeat KUB - Advance diet as tolerated # Acute on Chronic Decompensated Diastolic Congestive Heart Failure with Preserved Ejection Fraction # Severe Pulmonary Hypertension # Severe Tricuspid Regurgitation - Consult Cardiology - recommendations appreciated - Transthoracic echocardiogram = "1. study is poor quality due to tachycardia 2. left ventricular ejection fraction is normal greater than 60% 3. left atrial enlargement 4. mitral valve stenosis and mitral regurgitation are present 5. severe tricuspid regurgitation 6. severe pulmonary hypertension with right ventricular systolic pressure of 85 mmHg plus right atrial pressure" - Diuresis with furosemide - Continue home metoprolol - Daily weights - Strict I/O # Deconditioning - PT consulted - recs appreciated # Likely Hypovolemic Hyponatremia due to Vomiting - resolved # Hypokalemia due to Vomiting - Nephrology consulted - recommendations appreciated # Paroxysmal Atrial Fibrillation s/p PPM # History of Transient Ischemic Attack (2016) - Switch home apixaban to enoxaparin while hospitalized Keron Yin M.D.
[2023-01-13] MEDS: PROMETHAZINE INJ 25 MG/ML AMP IV ONE ×2 (13:05→13:10)
[2023-01-13 16:51] LABS: Absolute Lymphocytes (CBC) 0.7 K/uL (0.7-4.9); Hematocrit 40.4 % (36.0-45.0); Lymphocytes % 5.6 % (15.3-44.8); MCV 90.5 fL (80-100); MPV 8.7 fL (7.6-11.3); Platelets 295 thou/uL (152-406); RBC Red Blood Cell Count 4.47 M/uL (3.86-4.86)
--- NOTE | 2023-01-13 19:27 | P.PN ---
Nephrology (S) K level better, nausea better but appetite remains low. CXR shows no sig improvement in congestion/effusions but pt denies dyspnea at rest, remains on LFNC (O) Vitals, medications, blood work and imaging reviewed in the chart. General: Elderly, pale, NAD HEENT: Atraumatic, LFNC Neck: Supple Respiratory: reduced BS at the bases, non tachypnec, no rhonchi Cardiovascular: 1+ distal b/l LE edema, non tachy, irregular Gastrointestinal: Soft, mild distention Musculoskeletal: Shins are non tender Integumentary: Some varicose veins Neurological: Awake, alert, no tremors Blood work reviewed in the chart. LEFT VENTRICULAR WALL MOTION: TACHYCARDIA WITH NORMAL WALL MOTION DOPPLER/COLOR FLOW: SEE BELOW COMMENTS: 1. STUDY IS POOR QUALITY DUE TO TACHYCARDIA 2. LEFT VENTRICULAR EJECTION FRACTION IS NORMAL GREATER THAN 60% 3. LEFT ATRIAL ENLARGEMENT 4. MITRAL VALVE STENOSIS AND MITRAL REGURGITATION ARE PRESENT 5. SEVERE TRICUSPID REGURGITATION 6. SEVERE PULMONARY HYPERTENSION WITH RIGHT VENTRICULAR SYSTOLIC PRESSURE OF 85 mmHg PLUS RIGHT ATRIAL PRESSURE Conclusions/Impression: Hypokalemia, recurrent, moderate -Did suspend IV lasix temp. Did start Spironolactone and added an ACEi. Received IV KCL yesterday. Target Mg > 2.0. K level 3.6 this AM. Hypomagnesemia -Cont to supplement Hypophosphatemia -Encourage nutrition -Replete as needed HTN -Added ACEi and Spironolactone as mentioned above Mitral Stenosis, severe Severe TR, severe Pulmonary HTN, severe -Continue Metoprolol, added low dose ACEi, add Spironolactone. Will resume IV lasix Dyspnea, related to above, pleural effusion NOS Resp status clinically stable but in light of imaging findings will cont diuresis. Valentino Kc MD, CECI
[2023-01-13] MEDS: FLUCONAZOLE 200mg IVPB 200 MG/100 ML BAG IV SCH (21:46)
[2023-01-13] MEDS: FUROSEMIDE 20 MG/ 2ML VIAL IV SCH (21:47)
[2023-01-14] MEDS ORDERED: PROMETHAZINE INJ 25 MG/ML AMP IV ONE (00:58)
[2023-01-14 04:47] LABS: Absolute Lymphocytes (CBC) 0.6 K/uL (0.7-4.9); Hematocrit 36.6 % (36.0-45.0); Lymphocytes % 5.9 % (15.3-44.8); MCV 90.1 fL (80-100); MPV 9.4 fL (7.6-11.3); Platelets 265 thou/uL (152-406); RBC Red Blood Cell Count 4.07 M/uL (3.86-4.86)
[2023-01-14] MEDS: METOPROLOL TAR 50 MG TAB PO SCH ×2 (04:50→17:50)
[2023-01-14 05:02] LABS: Magnesium 1.8 mg/dL (1.6-2.4); Phosphorus 2.4 mg/dL (2.5-4.9); Potassium 3.5 mEq/L (3.5-5.1)
[2023-01-14] MEDS: ASCORBIC ACID 500 MG TABLET PO SCH (08:51)
[2023-01-14] MEDS: DOCUSATE NA 100 MG CAP PO SCH ×2 (08:51→20:44)
[2023-01-14] MEDS: SPIRONOLACTONE 25 MG TABLET PO SCH (08:51)
[2023-01-14] MEDS: ENOXAPARIN 60 MG/0.6 ML SQ SCH ×2 (08:52→20:45)
[2023-01-14] MEDS: ONDANSETRON 4 MG/2 ML VIAL IV PRN (08:52)
[2023-01-14] MEDS: SUCRALFATE 1GM/10ML UCUP PO SCH ×4 (08:52→20:44)
[2023-01-14] MEDS: PANTOPRAZOLE 40 MG INJ IVP SCH ×2 (08:52→20:45)
[2023-01-14] MEDS: FUROSEMIDE 20 MG/ 2ML VIAL IV SCH (08:52)
[2023-01-14] MEDS: MAGNESIUM OXIDE 400 MG TAB PO SCH ×2 (08:57→20:47)
[2023-01-14] MEDS ORDERED: POTASSIUM 25 MEQ EFFERV TAB PO ONE (09:00)
[2023-01-14] MEDS: LIDOCAINE 4% PATCH TOP SCH (09:00)
[2023-01-14] MEDS: ENALAPRIL 2.5 MG TAB PO SCH (09:00)
[2023-01-14] MEDS: ENSURE CLEAR 200 ML CAN PO SCH ×2 (09:00→20:48)
--- NOTE | 2023-01-14 11:55 | P.PN ---
Subjective Date of Service: 01/14/23 Chief Complaint: Abdominal pain, back pain, cholecystitis This morning, she reports that her nausea is severe, and she is unable to keep much food down. I spoke with Dr. Cannon, who mentioned that her esophageal motility is impaired. He recommended adding metoclopramide to her regimen to see if this helps. She denies any fevers, chills, chest pain. Review of Systems 10-point ROS is otherwise unremarkable Gastrointestinal: Nausea, Abdominal Pain Physical Examination - Vital Signs Temperature: 97.6 F Blood Pressure: 153/81 Pulse: 89 Respirations: 16 Pulse Ox (%): 95 - Physical Exam General: Alert, In no apparent distress, Oriented x3 HEENT: Atraumatic, Sclerae nonicteric Neck: JVD not distended Respiratory: Diminished, Crackles/rales (faint bibasilar) Cardiovascular: Edema (1+ BLE), Irregular heart rate/rhythm, Systolic murmur Gastrointestinal: Normal bowel sounds, Soft and benign, Non-distended, No tenderness Integumentary: No rashes Neurological: Normal speech, Normal affect Assessment And Plan - Plan # Intractable Nausea and Vomiting with concern for Alexia Esophagitis # Cholelithiasis with Possible Acute Cholecystitis s/p Laparaoscopic Cholecystectomy # L1, L3, L4 Compression Fractures - Radiology: - CT abdomen/pelvis = "gallbladder distention. Bladder distention." - US abdomen = "Cholelithiasis" - Management plan: - General Surgery consulted and spoke with Dr. Everett - S/P laparoscopic cholecystectomy on 01/02 - Gastroenterology consulted and spoke with Dr. Cannon - S/P EGD on 01/09 - Revealed large hiatal hernia, with concern for Alexia esophagitis - Started pantoprazole, fluconazole, and sucralfate - Recommended adding metoclopramide 5 mg TIDAC - As needed pain medication + anti-emetics - Started bowel regimen for constipation - docusate + polyethylene gylcol - Ordered repeat KUB - Advance diet as tolerated # Acute on Chronic Decompensated Diastolic Congestive Heart Failure with Preserved Ejection Fraction # Severe Pulmonary Hypertension # Severe Tricuspid Regurgitation - Consult Cardiology - recommendations appreciated - Transthoracic echocardiogram = "1. study is poor quality due to tachycardia 2. left ventricular ejection fraction is normal greater than 60% 3. left atrial enlargement 4. mitral valve stenosis and mitral regurgitation are present 5. severe tricuspid regurgitation 6. severe pulmonary hypertension with right ventricular systolic pressure of 85 mmHg plus right atrial pressure" - Diuresis with furosemide - Continue home metoprolol - Daily weights - Strict I/O # Deconditioning - PT consulted - recs appreciated # Likely Hypovolemic Hyponatremia due to Vomiting - resolved # Hypokalemia due to Vomiting - Nephrology consulted - recommendations appreciated # Paroxysmal Atrial Fibrillation s/p PPM # History of Transient Ischemic Attack (2016) - Switch home apixaban to enoxaparin while hospitalized Keron Yin M.D.
--- NOTE | 2023-01-14 12:53 | P.PN ---
Nephrology (S) Pt moved to the ICU in the setting of some persistent nausea, dry heaves, other. Hemodynamically stable, denies increased work of breathing. Has kept down PO meds mostly (O) Vitals, medications, blood work and imaging reviewed in the chart. General: Elderly, pale, NAD HEENT: Atraumatic, LFNC Neck: Supple Respiratory: reduced BS at the bases, non tachypnec, no rhonchi Cardiovascular: 1+ distal b/l LE edema, non tachy, irregular Gastrointestinal: Soft, mild distention Musculoskeletal: Shins are non tender Integumentary: Some varicose veins Neurological: Awake, alert, no tremors Blood work reviewed in the chart. LEFT VENTRICULAR WALL MOTION: TACHYCARDIA WITH NORMAL WALL MOTION DOPPLER/COLOR FLOW: SEE BELOW COMMENTS: 1. STUDY IS POOR QUALITY DUE TO TACHYCARDIA 2. LEFT VENTRICULAR EJECTION FRACTION IS NORMAL GREATER THAN 60% 3. LEFT ATRIAL ENLARGEMENT 4. MITRAL VALVE STENOSIS AND MITRAL REGURGITATION ARE PRESENT 5. SEVERE TRICUSPID REGURGITATION 6. SEVERE PULMONARY HYPERTENSION WITH RIGHT VENTRICULAR SYSTOLIC PRESSURE OF 85 mmHg PLUS RIGHT ATRIAL PRESSURE Conclusions/Impression: Hypokalemia, recurrent, moderate -now resolved -Did suspend IV lasix temp Fri. Did start Spironolactone and added an ACEi. Received IV KCL Fri. Target Mg > 2.0. K level 3.5 this AM. Will dose KCL 20 meq IV once Hypomagnesemia -Cont to supplement Hypophosphatemia -Encourage nutrition -Replete as needed HTN -Added ACEi and Spironolactone as mentioned above but may have to hold if pt not able to keep PO intake down Mitral Stenosis, severe Severe TR, severe Pulmonary HTN, severe -Continue Metoprolol, added low dose ACEi, add Spironolactone. Did resume IV lasix Dyspnea, related to above, pleural effusion NOS Resp status clinically stable but in light of imaging findings did cont diuresis however with on going nausea and reduced PO intake, will lower dose shelley Kc MD, CECI
[2023-01-14] MEDS ORDERED: KCL 20 MEQ/100 mL IVPB 20 MEQ/100 ML BAG IV ONE (13:00)
[2023-01-14] MEDS: METOCLOPRAMIDE 10 MG/2mL INJ IV SCH ×2 (14:42→17:50)
[2023-01-14] MEDS: FLUCONAZOLE 200mg IVPB 200 MG/100 ML BAG IV SCH (20:44)
[2023-01-15 02:16] VITALS: O2SAT 94
[2023-01-15] MEDS: METOPROLOL TAR 50 MG TAB PO SCH ×2 (05:04→18:00)
--- NOTE | 2023-01-15 05:20 | P.PN ---
Date of Service: 01/15/23 Subjective: Physical Exam: Vitals: reviewed GEN: Alert, oriented, NAD HEENT: Normal conjunctiva, sclera anicteric CV: Irregular rate & rhythm, 1+ BLE edema, systolic murmur Pulm: Diminished, Crackles/rales ABD: Soft, nontender, nondistended MSK: No joint tenderness Integumentary: No rashes Neuro: Normal speech, normal affect Problem List: Intractable Nausea and Vomiting with concern for Alexia Esophagitis Cholelithiasis with Possible Acute Cholecystitis s/p Laparaoscopic Cholecystectomy (01/02) L1, L3, L4 Compression Fractures Acute on Chronic Decompensated Diastolic CHF Severe Pulmonary Hypertension Severe Tricuspid Regurgitation Deconditioning Hyponatremia Hypokalemia Paroxysmal Atrial Fibrillation s/p PPM History of TIA (2015) Plan: General Surgery consulted and spoke with Dr. Everett s/p laparoscopic cholecystectomy GI consulted s/p EGD (01/09), noted large hiatal hernia, with concern for Alexia esophagitis continue pantoprazole, fluconazole, and sucralfate Continue reglan PRN pain medication / antiemetics continue docusate / polyethylene gylcol Advance diet as tolerated Cardiology consulted Echo(01/05): 62% EF, left atrial enlargement, mitral valve stenosis, MR, severe TR, severe pulm hypertension continue IV lasix Continue home metoprolol Daily weights, Strict I/O Continue PT Nephrology consulted DVT prophylaxis with lovenox while hospitalized
[2023-01-15 05:44] LABS: Magnesium 1.8 mg/dL (1.6-2.4); Phosphorus 2.1 mg/dL (2.5-4.9); Potassium 3.4 mEq/L (3.5-5.1)
[2023-01-15] MEDS: ENALAPRIL 2.5 MG TAB PO SCH (09:00)
[2023-01-15] MEDS: MAGNESIUM OXIDE 400 MG TAB PO SCH ×2 (09:00→20:49)
[2023-01-15] MEDS: ENOXAPARIN 60 MG/0.6 ML SQ SCH ×2 (10:10→20:49)
[2023-01-15] MEDS: DOCUSATE NA 100 MG CAP PO SCH ×2 (10:10→20:48)
[2023-01-15] MEDS: PANTOPRAZOLE 40 MG INJ IVP SCH ×2 (10:11→20:48)
[2023-01-15] MEDS: METOCLOPRAMIDE 10 MG/2mL INJ IV SCH ×3 (10:11→18:00)
[2023-01-15] MEDS: SPIRONOLACTONE 25 MG TABLET PO SCH (10:11)
[2023-01-15] MEDS: SUCRALFATE 1GM/10ML UCUP PO SCH ×4 (10:12→20:48)
[2023-01-15] MEDS: ASCORBIC ACID 500 MG TABLET PO SCH (10:12)
[2023-01-15] MEDS: FUROSEMIDE 20 MG/ 2ML VIAL IV SCH (10:12)
[2023-01-15] MEDS: POTASSIUM PHOS IN 0.9 % NACL 15 MMOL/250 ML BAG IV SCH ×2 (10:12→12:03)
[2023-01-15] MEDS: LIDOCAINE 4% PATCH TOP SCH (10:12)
[2023-01-15] MEDS: ENSURE CLEAR 200 ML CAN PO SCH ×2 (10:12→20:49)
[2023-01-15] MEDS ORDERED: METOPROLOL TAR 25 MG TAB ONE (18:05)
[2023-01-15] MEDS ORDERED: SUCRALFATE 1GM/10ML UCUP ONE (18:06)
[2023-01-15] MEDS ORDERED: POTASS/SODIUM PHOSPHATE 1 PKT POWD.PACK PO ONE (19:18)
--- NOTE | 2023-01-15 19:18 | P.PN ---
Date of Service: 01/15/23 Vital Signs Temp Pulse Resp BP Pulse Ox 98.2 F 85 17 119/93 H 93 01/15/23 16:00 01/15/23 18:01 01/15/23 16:00 01/15/23 18:01 01/15/23 16:00 Medications Hydrocodone Bitart/Acetaminophen (Hydrocodone/Apap 7.5/325 Mg Tab) 1 tab PO Q6H PRN PRN Reason: Pain scale 5-7 (Moderate) Last Admin: 01/11/23 22:22 Dose: 1 tab Ascorbic Acid (Ascorbic Acid 500 Mg Tablet) 500 mg PO DAILY [facility] Last Admin: 01/15/23 10:12 Dose: 500 mg Docusate Sodium (Docusate Na 100 Mg Cap) 100 mg PO BID [facility] Last Admin: 01/15/23 10:10 Dose: 100 mg Enalapril Maleate (Enalapril 2.5 Mg Tab) 5 mg PO DAILY [facility] Last Admin: 01/15/23 09:00 Dose: Not Given Enoxaparin Sodium (Enoxaparin 60 Mg/0.6 Ml) 60 mg SQ Q12HR [facility] Last Admin: 01/15/23 10:10 Dose: 60 mg Enteral Nutritional Formula (Ensure Clear 200 Ml Can) 237 ml PO BID [facility] Last Admin: 01/15/23 10:12 Dose: 237 ml Fentanyl Citrate (Fentanyl Citr 100 Mcg/2 Ml) 12.5 mcg IV Q4H PRN PRN Reason: Pain scale 8-10 (Severe) Last Admin: 01/13/23 10:03 Dose: 12.5 mcg Furosemide (Furosemide 20 Mg/ 2ml Vial) 20 mg IV DAILY [facility] Last Admin: 01/15/23 10:12 Dose: 20 mg Hydralazine HCl (Hydralazine Hcl 20 Mg/Ml Vial) 10 mg IV Q6HP PRN PRN Reason: Goal to achieve SBP in comment Last Admin: 01/11/23 09:29 Dose: 10 mg Sodium Chloride (Sodium Chloride) 500 mls @ 999 mls/hr IV PRN PRN PRN Reason: bp 85/58 Fluconazole (Diflucan 200 Mg/100 Ml Ivpb (Premix)) 200 mg in 100 mls @ 100 mls/hr IV Q24H [facility]; Protocol Stop: 01/19/23 20:01 Last Admin: 01/14/23 20:44 Dose: 100 mls Lidocaine (Lidocaine 4% Patch) 1 patch TOP DAILY [facility] Last Admin: 01/15/23 10:12 Dose: 1 patch Magnesium Oxide (Magnesium Oxide 400 Mg Tab) 400 mg PO BID [facility] Last Admin: 01/15/23 09:00 Dose: 400 mg Metoclopramide HCl (Metoclopramide 10 Mg/2ml Inj) 5 mg IV TIDWM [facility] Last Admin: 01/15/23 18:00 Dose: 5 mg Metoprolol Tartrate (Metoprolol Tar 50 Mg Tab) 50 mg PO BID 6AM 6PM [facility] Last Admin: 01/15/23 18:00 Dose: Not Given Ondansetron HCl (Ondansetron 4 Mg/2 Ml Vial) 4 mg IV Q4H PRN PRN Reason: NAUSEA / VOMITING Last Admin: 01/14/23 08:52 Dose: 4 mg Pantoprazole Sodium (Pantoprazole 40 Mg Inj) 40 mg IVP Q12HR [facility]; Protocol Last Admin: 01/15/23 10:11 Dose: 40 mg Polyethylene Glycol (Polyethyl Gly 3350 17 Gm/Dose) 17 gm PO DAILY PRN PRN Reason: CONSTIPATION Last Admin: 01/14/23 14:42 Dose: 17 gm Sodium Chloride (Sodium Chloride 0.9% 10ml Inj) 10 ml IV UD PRN PRN Reason: Diluant Last Admin: 01/02/23 08:42 Dose: 10 ml Spironolactone (Spironolactone 25 Mg Tablet) 25 mg PO DAILY [facility] Last Admin: 01/15/23 10:11 Dose: 25 mg Sucralfate (Sucralfate 1gm/10ml Ucup) 1 gm PO QID [facility] Last Admin: 01/15/23 17:00 Dose: Not Given Assessment/ Plan: Nephrology No dyspnea No chest pain Anorexia Denies constipation No acute events overnight Vitals, medications, blood work and imaging reviewed in the chart. General: In no apparent distress, Oriented x3, Cooperative HEENT: Atraumatic Neck: Supple Respiratory: Clear to auscultation bilaterally Cardiovascular: No edema, Regular rate/rhythm Gastrointestinal: Tender abd Musculoskeletal: No clubbing, No contractures Integumentary: No rashes, No cyanosis Neurological: Normal speech Blood work reviewed in the chart. Imagings Data: EXAM DESCRIPTION: CT - Abdomen Pelvis W Contrast - 12/30/2022 1:32 pm CLINICAL HISTORY: Abdominal pain COMPARISON: 2014 TECHNIQUE: Computed axial tomography of the abdomen pelvis was obtained. 100 cc Isovue-300 was administered intravenously. Oral contrast was not requested which limits evaluation of bowel and appendix All CT scans are performed using dose optimization technique as appropriate and may include automated exposure control or mA/KV adjustment according to patient size. FINDINGS: A small to moderate hernia Liver, pancreas, adrenals and kidneys unremarkable Splenic granulomata. 1.5 centimeter splenic cyst. Gallbladder is distended. Bladder is distended. No adnexal mass. Diverticula stem from the colon without visualization diverticulitis. Compression fractures involve vertebral bodies of L1, L3 and L4. L1 compression is marked. These probably are old IMPRESSION: Gallbladder distention. Bladder distention EXAM DESCRIPTION: RAD - Chest Single View - 01/11/2023 6:40 am CLINICAL HISTORY: volume overload Chest pain. COMPARISON: Chest Single View dated 01/05/2023; Chest Single View dated 04/18/2022; Chest Single View dated 04/16/2022; Chest Single View dated 06/15/2021 FINDINGS: Portable technique limits examination quality. Mild interstitial pulmonary edema is seen. Small left and moderate right pleural effusion. The heart is moderately enlarged with a single lead pacer/ defibrillator device. IMPRESSION: Moderate CHF versus volume overload pattern is moderately progressive since 01/05/2023 comparative study. LEFT VENTRICULAR WALL MOTION: TACHYCARDIA WITH NORMAL WALL MOTION DOPPLER/COLOR FLOW: SEE BELOW COMMENTS: 1. STUDY IS POOR QUALITY DUE TO TACHYCARDIA 2. LEFT VENTRICULAR EJECTION FRACTION IS NORMAL GREATER THAN 60% 3. LEFT ATRIAL ENLARGEMENT 4. MITRAL VALVE STENOSIS AND MITRAL REGURGITATION ARE PRESENT 5. SEVERE TRICUSPID REGURGITATION 6. SEVERE PULMONARY HYPERTENSION WITH RIGHT VENTRICULAR SYSTOLIC PRESSURE OF 85 mmHg PLUS RIGHT ATRIAL PRESSURE Conclusions/Impression: Hyponatremia -Encourage nutrition Hypokalemia -Replete as ordered Hypophosphatemia -Encourage nutrition -Replete as ordered HTN -Continue metoprolol -Hydralazine prn Mitral Stenosis, severe Severe TR, severe Pulmonary HTN, severe -Continue Metoprolol -Continue furosemide and spironolactone Anemia in chronic illness -Monitor H&H -Transfuse PRBC prn Candidal Esophagitis -Continue Diflucan Slow transit constipation -Continue MagOx -Continue Colace Hospitalist note reviewed
[2023-01-15] MEDS ORDERED: POTASS/SODIUM PHOSPHATE 1 PKT POWD.PACK ONE (20:24)
[2023-01-15] MEDS: FLUCONAZOLE 200mg IVPB 200 MG/100 ML BAG IV SCH (20:47)
[2023-01-15] MEDS: ONDANSETRON 4 MG/2 ML VIAL IV PRN (22:56)
[2023-01-16] MEDS: METOPROLOL TAR 50 MG TAB PO SCH (05:59)
--- NOTE | 2023-01-16 07:28 | RAD REPORT ---
EXAM DESCRIPTION: RAD - Chest Single View - 01/16/2023 4:57 am CLINICAL HISTORY: pneumonia COMPARISON: Abdomen 1 View (KUB) dated 01/13/2023; Chest Single View dated 01/13/2023; Chest Single View dated 01/11/2023; Chest Single View dated 01/05/2023; Abdomen Pelvis W Contrast dated 12/31/19 23 FINDINGS: Lines: ICD Lungs: Diffuse prominence of the pulmonary interstitium. Pleural: Similar small moderate bilateral pleural effusions. Cardiac: Similar size and configuration. Mediastinum: Within normal limits. Bones: No acute fractures. Other: None IMPRESSION: Unchanged small to moderate pleural effusions and probable congestive heart failure/ flu id overload.
[2023-01-16] MEDS: ENSURE CLEAR 200 ML CAN PO SCH (09:00)
[2023-01-16] MEDS ORDERED: APIXABAN 2.5 MG TABLET PO SCH (09:00)
[2023-01-16] MEDS: MAGNESIUM OXIDE 400 MG TAB PO SCH (09:00)
[2023-01-16] MEDS: DOCUSATE NA 100 MG CAP PO SCH (09:52)
[2023-01-16] MEDS: SUCRALFATE 1GM/10ML UCUP PO SCH ×2 (09:52→12:32)
[2023-01-16] MEDS: ASCORBIC ACID 500 MG TABLET PO SCH (09:52)
[2023-01-16] MEDS: PANTOPRAZOLE 40 MG INJ IVP SCH (09:53)
[2023-01-16] MEDS: LIDOCAINE 4% PATCH TOP SCH (09:54)
[2023-01-16] MEDS: METOCLOPRAMIDE 10 MG/2mL INJ IV SCH ×2 (09:54→12:31)
[2023-01-16] MEDS: SPIRONOLACTONE 25 MG TABLET PO SCH (09:57)
[2023-01-16] MEDS: ENALAPRIL 2.5 MG TAB PO SCH (09:58)
[2023-01-16] MEDS: FUROSEMIDE 20 MG/ 2ML VIAL IV SCH (09:58)
[2023-01-16 10:55] LABS: Absolute Lymphocytes (CBC) 0.8 K/uL (0.7-4.9); Hematocrit 40.7 % (36.0-45.0); Lymphocytes % 10.1 % (15.3-44.8); MCV 90.3 fL (80-100); MPV 9.4 fL (7.6-11.3); Platelets 276 thou/uL (152-406)
[2023-01-16 10:57] LABS: Albumin 2.7 g/dL (3.4-5.0); Bilirubin Total 0.9 mg/dL (0.2-1.0); Magnesium 1.7 mg/dL (1.6-2.4); Potassium 3.5 mEq/L (3.5-5.1); Protein, Total 6.2 g/dL (6.4-8.2)
[2023-01-16] MEDS ORDERED: POTASSIUM CL SA 10 MEQ TAB PO ONE (12:00)
[2023-01-16] MEDS: POTASS/SODIUM PHOSPHATE 1 PKT POWD.PACK PO SCH ×3 (12:32→14:00)
[2023-01-16 13:24] VITALS: BP 133/68; TEMP 98
--- NOTE | 2023-01-16 18:12 | P.PN ---
Date of Service: 01/16/23 Vital Signs Temp Pulse Resp BP Pulse Ox 98.0 F 103 H 16 133/68 95 01/16/23 12:00 01/16/23 12:00 01/16/23 12:00 01/16/23 12:00 01/16/23 12:00 Assessment/ Plan: Nephrology No dyspnea No chest pain Feeling better +BM No acute events overnight Vitals, medications, blood work and imaging reviewed in the chart. General: In no apparent distress, Oriented x3, Cooperative HEENT: Atraumatic Neck: Supple Respiratory: Clear to auscultation bilaterally Cardiovascular: No edema, Regular rate/rhythm Gastrointestinal: Tender abd Musculoskeletal: No clubbing, No contractures Integumentary: No rashes, No cyanosis Neurological: Normal speech Blood work reviewed in the chart. Imagings Data: EXAM DESCRIPTION: CT - Abdomen Pelvis W Contrast - 12/30/2022 1:32 pm CLINICAL HISTORY: Abdominal pain COMPARISON: 2014 TECHNIQUE: Computed axial tomography of the abdomen pelvis was obtained. 100 cc Isovue-300 was administered intravenously. Oral contrast was not requested which limits evaluation of bowel and appendix All CT scans are performed using dose optimization technique as appropriate and may include automated exposure control or mA/KV adjustment according to patient size. FINDINGS: A small to moderate hernia Liver, pancreas, adrenals and kidneys unremarkable Splenic granulomata. 1.5 centimeter splenic cyst. Gallbladder is distended. Bladder is distended. No adnexal mass. Diverticula stem from the colon without visualization diverticulitis. Compression fractures involve vertebral bodies of L1, L3 and L4. L1 compression is marked. These probably are old IMPRESSION: Gallbladder distention. Bladder distention EXAM DESCRIPTION: RAD - Chest Single View - 01/11/2023 6:40 am CLINICAL HISTORY: volume overload Chest pain. COMPARISON: Chest Single View dated 01/05/2023; Chest Single View dated 04/18/2022; Chest Single View dated 04/16/2022; Chest Single View dated 06/15/2021 FINDINGS: Portable technique limits examination quality. Mild interstitial pulmonary edema is seen. Small left and moderate right pleural effusion. The heart is moderately enlarged with a single lead pacer/ defibrillator device. IMPRESSION: Moderate CHF versus volume overload pattern is moderately progressive since 01/05/2023 comparative study. LEFT VENTRICULAR WALL MOTION: TACHYCARDIA WITH NORMAL WALL MOTION DOPPLER/COLOR FLOW: SEE BELOW COMMENTS: 1. STUDY IS POOR QUALITY DUE TO TACHYCARDIA 2. LEFT VENTRICULAR EJECTION FRACTION IS NORMAL GREATER THAN 60% 3. LEFT ATRIAL ENLARGEMENT 4. MITRAL VALVE STENOSIS AND MITRAL REGURGITATION ARE PRESENT 5. SEVERE TRICUSPID REGURGITATION 6. SEVERE PULMONARY HYPERTENSION WITH RIGHT VENTRICULAR SYSTOLIC PRESSURE OF 85 mmHg PLUS RIGHT ATRIAL PRESSURE Conclusions/Impression: Hyponatremia -Encourage nutrition Hypokalemia -Replete as ordered Hypophosphatemia -Encourage nutrition -Replete as ordered HTN -Continue metoprolol -Hydralazine prn Mitral Stenosis, severe Severe TR, severe Pulmonary HTN, severe -Continue Metoprolol -Continue furosemide and spironolactone Anemia in chronic illness -Monitor H&H -Transfuse PRBC prn Candidal Esophagitis -Continue Diflucan Slow transit constipation -Continue MagOx -Continue Colace Hospitalist note reviewed
== END 2023-01-16 14:30 | disposition home health service (06) | DRG 987 ==
LOC: ER 11:40 → ERHOLD 16:10 → 2ND 18:22 → UNDODISIN 01-02 18:30 → 3RD-ICU 01-13 20:02 → 2ND 01-15 16:45
PROVIDERS: ADMIT Internal Medicine; ATTEND Hospitalist
PROC: 0FT44ZZ Resection of Gallbladder, Percutaneous Endoscopic Approach (ICD-10-PCS; 2023-01-02)
PROC: 30233N1 Transfusion of Nonautologous Red Blood Cells into Peripheral Vein, Percutaneous Approach (ICD-10-PCS; 2023-01-03)
PROC: 0DB78ZX Excision of Stomach, Pylorus, Via Natural or Artificial Opening Endoscopic, Diagnostic (ICD-10-PCS; 2023-01-09)
PROC: 0DB68ZX Excision of Stomach, Via Natural or Artificial Opening Endoscopic, Diagnostic (ICD-10-PCS; 2023-01-09)
PROC: 0DB58ZX Excision of Esophagus, Via Natural or Artificial Opening Endoscopic, Diagnostic (ICD-10-PCS; principal; 2023-01-09 09:15)
DX: E87.1 Hypo-osmolality and hyponatremia (principal); E43 Unspecified severe protein-calorie malnutrition; I50.33 Acute on chronic diastolic (congestive) heart failure; Z68.1 Body mass index [BMI] 19.9 or less, adult; K80.10 Calculus of gallbladder with chronic cholecystitis without obstruction; B37.81 Candidal esophagitis; K22.10 Ulcer of esophagus without bleeding; I11.0 Hypertensive heart disease with heart failure; E11.39 Type 2 diabetes mellitus with other diabetic ophthalmic complication; H42 Glaucoma in diseases classified elsewhere; E87.6 Hypokalemia; I48.91 Unspecified atrial fibrillation; K44.9 Diaphragmatic hernia without obstruction or gangrene; I48.0 Paroxysmal atrial fibrillation; K29.70 Gastritis, unspecified, without bleeding; E86.1 Hypovolemia; I07.0 Rheumatic tricuspid stenosis; I27.20 Pulmonary hypertension, unspecified; E83.39 Other disorders of phosphorus metabolism; D63.8 Anemia in other chronic diseases classified elsewhere; K59.01 Slow transit constipation; M48.56XD Collapsed vertebra, not elsewhere classified, lumbar region, subsequent encounter for fracture with routine healing; I25.2 Old myocardial infarction; Z95.0 Presence of cardiac pacemaker; Z79.01 Long term (current) use of anticoagulants
CPT/HCPCS: 36415; 36430; 71045; 74018; 74019; 74177; 76705; 80048; 80053; 80061; 81001; 82607; 83540; 83690; 83735; 84100; 84132; 84484; 84550; 85025; 85044; 86850; 86900; 86901; 86920; 88304; 88305; 88312; 93005; 93306; 94010; 96361; 96374; 96375; 97110; 97116; 97161; 97530; 99285; A4216; C9113; J0360; J1100; J1170; J1450; J1650; J1940; J2001; J2250; J2270; J2405; J2543; J2550; J2704; J2710; J2765; J2920; J3010; J3475; J3480; J7030; J7040; J7050; J7120; P9016; Q9967

== ENCOUNTER 2023-12-28 09:30 | Emergency (ER) | payer OTHER ==
[2023-12-28] MEDS ORDERED: NA CHLORIDE 0.9% 1,000 ML ONE (10:13)
[2023-12-28] MEDS ORDERED: ONDANSETRON 4 MG/2 ML VIAL ONE (10:13)
[2023-12-28 10:26] LABS: Absolute Lymphocytes (CBC) 0.8 K/uL (0.7-4.9); Absolute Monocytes 0.6 K/uL (0.1-1.3); Absolute Neutrophil 10.6 K/uL (1.8-8.0); Basophils % 0.1 % (0-1.3); Eosinophils % 0.3 % (0-4.4); Hematocrit 44.7 % (36.0-45.0); Hemoglobin 14.5 g/dL (12.0-15.0); Lymphocytes % 6.3 % (15.3-44.8); MCH 29.5 pg (27.0-35.0); MCHC 32.4 g/dL (32.0-36.0); MPV 9.1 fL (7.6-11.3); Monocytes % 4.9 % (3.3-12.3); Neutrophils % 88.4 % (41.7-73.7); Platelets 246 thou/uL (152-406); RBC Red Blood Cell Count 4.92 M/uL (3.86-4.86); Red Cell Distribution Width 14.6 % (12.1-15.2)
[2023-12-28 10:43] LABS: Albumin 3.7 g/dL (3.4-5.0); Albumin/Globulin Ratio 0.9 (1.1-1.8); Anion Gap 13.1 mEq/L (5.0-15.0); Bilirubin Total 0.6 mg/dL (0.2-1.0); Globulin 3.9 g/dL (2.3-3.5); Potassium 4.1 mEq/L (3.5-5.1); Protein, Total 7.6 g/dL (6.4-8.2); Troponin High Sensitivity 8.4 pg/mL (<58.9)
[2023-12-28 10:58] LABS: Specific Gravity 1.022 (1.005-1.030); Sqamous Epithelial <5 /HPF (None Seen); Urine Bacteria <20 /HPF (<20); Urine Bilirubin NEGATIVE (Negative); Urine Blood Negative (Negative); Urine Clarity Turbid (Clear); Urine Color Light-Yellow (Yellow); Urine Culture Reflex Order NOT NEEDED; Urine Glucose NEGATIVE (Negative); Urine Ketones NEGATIVE (Negative); Urine Microscopic Reflex YN ORDER UMIC; Urine Mucus Slight /HPF (None Seen); Urine Nitrite NEGATIVE (Negative); Urine Protein NEGATIVE (Negative); Urine RBC <5 /HPF (None Seen); Urine Urobilinogen Normal (Normal); Urine WBC <5 /HPF (<5)
[2023-12-28 11:25] LABS: Blood Morphology Comment NOT SEEN (NOT SEEN); Platelet Estimate ADEQ; White Blood Cell Scan OK (OK)
--- NOTE | 2023-12-28 11:26 | RAD REPORT ---
EXAMINATION: CT ABDOMEN AND PELVIS WITH CONTRAST CLINICAL INDICATION: n/v TECHNIQUE: CT abdomen and pelvis was performed, after the administration of IV contrast[facility] Axial, sagittal and coronal reconstructions were obtained. One or more of the following dose reduction techniques were used: Automated exposure control, adjustment of the mA and k V according to patient size, and iterative reconstruction. Unless otherwise specified, incidental findings do not require dedicated imaging follow-up. COMPARISON: No prior exam. FINDINGS: LOWER CHEST: The visualized lung bases are clear. Pacer wires. Moderate hiatal hernia. LIVER: Normal in size and contour. No focal lesion. Cholecystectomy clips. SPLEEN: Numerous granulomata. PANCREAS: No mass, ductal dilation, or ruth ann-pancreatic fluid. ADRENALS: Normal; no mass. KIDNEYS: Normal size and contour. No hydronephrosis. GASTROINTESTINAL TRACT: No evidence of free air, significant intra-abdominal free fluid, bowel obstru ction or abscess. There is severe diverticulosis coli of the descending and sigmoid colon without diverticulitis. APPENDIX: Normal appendix. LYMPH NODES: No lymphadenopathy. MUSCULOSKELETAL: L1 compression deformity is seen, with mild canal narrowing, appearing chronic. No a cute fracture is seen. Mild lower lumbar degenerative findings. ADDITIONAL FINDINGS: Left inguinal surgical clips presumably related to previous hernia repair. IMPRESSION: Advanced diverticulosis involving the descending and sigmoid colon.Follow-up colonoscopy may be of va lue if not recently performed.
--- NOTE | 2023-12-28 11:52 | EDPHYS ---
Physician Documentation [facility] Name: Nereida Bhandari Age: 83 yrs Sex: Female : 1940 Arrival Date: 12/28/2023 Time: 09:30 Bed 14 Private MD: ED Physician Pedro Kaplan HPI: 12/27 10:11 This 83 yrs old Female presents to ER via Wheelchair with complaints of rt Nausea/Vomiting, Headache. 10:11 Patient presents to the ED with nausea, vomiting starting at about 2. Patient reports a rt slight headache but none currently. Patient reports having a mild generalized abdominal pain. Denies other acute complaints at this time, symptoms are moderate severity, no other aggravating or alleviating factors.. Historical: - Allergies: 10:03 Aspirin; ap3 - PMHx: 10:03 Atrial fibrillation; Hypertensive disorder; "leaky heart valve"; ap3 - PSHx: 10:03 hernia repair; Cholecystectomy; ap3 - Immunization history:: Adult Immunizations up to date. - Infectious Disease History:: Denies. - Social history:: Smoking status: Patient denies any tobacco usage or history of. - Family history:: not pertinent. ROS: 10:11 Constitutional: Negative for fever, chills, and weight loss, Cardiovascular: Negative rt for chest pain, palpitations, and edema, Respiratory: Negative for shortness of breath, cough, wheezing, and pleuritic chest pain, : Negative for injury, bleeding, discharge, and swelling, MS/Extremity: Negative for injury and deformity, Skin: Negative for injury, rash, and discoloration, Neuro: Negative for headache, weakness, numbness, tingling, and seizure, 10:11 Abdomen/GI: Positive for abdominal pain, nausea and vomiting, Negative for diarrhea, Exam: 10:12 Constitutional: This is a well developed, well nourished patient who is awake, alert, rt and in no acute distress. Head/Face: Normocephalic, atraumatic. Chest/axilla: Normal chest wall appearance and motion. Nontender with no deformity. No lesions are appreciated. Cardiovascular: Regular rate and rhythm with a normal S1 and S2. No gallops, murmurs, or rubs. Normal PMI, no JVD. No pulse deficits. Respiratory: Lungs have equal breath sounds bilaterally, clear to auscultation and percussion. No rales, rhonchi or wheezes noted. No increased work of breathing, no retractions or nasal flaring. Skin: Warm, dry with normal turgor. Normal color with no rashes, no lesions, and no evidence of cellulitis. MS/ Extremity: Pulses equal, no cyanosis. Neurovascular intact. Full, normal range of motion. Neuro: Awake and alert, GCS 15, oriented to person, place, time, and situation. Cranial nerves II-XII grossly intact. Motor strength 5/5 in all extremities. Sensory grossly intact. Cerebellar exam normal. Normal gait. 10:12 Abdomen/GI: Mild tenderness diffusely without rebound, guarding, distention, 10:26 ECG was reviewed by the Attending Physician. rt Vital Signs: 10:01 BP 116 / 69; Pulse 74; Resp 17; Temp 97.4; Pulse Ox 97% on R/A; Weight 53.52 kg; Height ap3 5 ft. 6 in. ; 11:19 BP 115 / 72; Pulse 70; Resp 16; Pulse Ox 98% on R/A; rs5 12:00 BP 117 / 74; Pulse 74; Resp 17; Pulse Ox 99% on R/A; rs5 10:01 Body Mass Index 19.05 (53.52 kg, 167.64 cm) ap3 MDM: 09:49 Patient medically screened. rt 15:30 Differential diagnosis: Nausea, vomiting, ACS, bowel obstruction. Data reviewed: vital rt signs, nurses notes, lab test result(s), EKG, radiologic studies. Consideration of Admission/Observation Escalation of care including admission/observation considered. Symptoms resolved with treatment in the ED, patient feels well, workup is benign, no indications for admission at this time. Stable for outpatient care.. I considered the following discharge prescriptions or medication management in the emergency department Medications were administered in the Emergency Department. See MAR. Independent interpretation of the following test(s) in the Emergency Department CT Scan: My interpretation is No bowel obstruction seen on interpretation of CT scan images. Care significantly affected by the following chronic conditions: Hypertension. Counseling: I had a detailed discussion with the patient and/or guardian regarding the historical points, exam findings, and any diagnostic results supporting the discharge/admit diagnosis, lab results, radiology results, the need for outpatient follow up, to return to the emergency department if symptoms worsen or persist or if there are any questions or concerns that arise at home. Response to treatment: the patient's symptoms have markedly improved after treatment. 12/27 10:02 Order name: CBC with Diff; Complete Time: 11: rt 12/27 10:02 Order name: CMP; Complete Time: 11: rt 12/27 10:02 Order name: Lipase; Complete Time: : rt 12/27 10:02 Order name: Urinalysis w/ reflexes; Complete Time: 11: rt 12/27 10:02 Order name: Troponin HS; Complete Time: : rt 12/27 11:25 Order name: CBC Smear Scan; Complete Time: : EDMS 12/27 10:02 Order name: CT Abd/Pelvis - IV Contrast Only; Complete Time: : rt 12/27 10:02 Order name: EKG; Complete Time: 10: rt 12/27 10:02 Order name: IV Saline Lock; Complete Time: : rt 12/27 10:02 Order name: Labs collected and sent; Complete Time: : rt 12/27 10:02 Order name: EKG - Nurse/Tech; Complete Time: : rt EC:26 Rate is 65 beats/min. Rhythm is regular, Normal Sinus Rhythm with No ectopy. QRS [place] rt is Normal. [place] interval is normal. QRS interval is normal. QT interval is normal. No Q waves. T waves are Normal. No ST changes noted. Interpreted by me. Administered Medications: 10:27 Drug: Ondansetron IVP 4 mg IVP once; over 2 minutes Route: IVP; Site: right forearm; rs5 11:01 Follow up: Response: No adverse reaction; Nausea is decreased rs5 10:27 Drug: NS 0.9% IV 1000 ml IV at 1 bolus Per protocol; to be given as a bolus over 60 rs5 minutes Route: IV; Rate: 1 bolus; Site: right forearm; 11:33 Follow up: IV Status: Completed infusion; IV Intake: 1000ml rs5 Disposition Summary: 12/28/23 11:51 Discharge Ordered Notes: Location: Home rt Problem: new rt Symptoms: have improved rt Condition: Stable rt Diagnosis - Nausea with vomiting, unspecified rt - Diverticulosis of large intestine without perforation or abscess without bleeding rt Followup: rt - With: Private Physician - When: 2 - 3 days - Reason: Discharge Instructions: - Discharge Summary Sheet rt - Diverticulosis rt - Nausea and Vomiting, Adult rt Forms: - Medication Reconciliation Form rt - Antibiotic Education rt - Prescription Opioid Use rt - Patient Portal Instructions rt - Leadership Thank You Letter rt Prescriptions: - ondansetron 4 mg Oral Tablet,disintegrating - take 1 tablet ORAL route every 6 hours as needed; 15 tablet; Refills: 0, rt Product Selection Permitted Signatures: Dispatcher [employer] Kindra Corrales, RAYMUNDO RN ap3 Pedro Kaplan MD MD rt Ruperto Martell RN RN rs5
--- NOTE | 2023-12-28 11:52 | ER ---
Nurse's Notes [facility] Name: Nereida Bhandari Age: 83 yrs Sex: Female : 1940 Arrival Date: 12/28/2023 Time: 09:30 Bed 14 Private MD: Diagnosis: Nausea with vomiting, unspecified;Diverticulosis of large intestine without perforation or abscess without bleeding Presentation: 12/27 10:01 Chief complaint: Patient states: she started having nausea and vomiting at approx 0200 ap3 with slight abdominal pain. patient reports the nausea and vomiting woke her up. Coronavirus screen: At this time, the client does not indicate any symptoms associated with coronavirus-19. Ebola Screen: No symptoms or risks identified at this time. Initial Sepsis Screen: Does the patient meet any 2 criteria? No. Patient's initial sepsis screen is negative. Does the patient have a suspected source of infection? No. Patient's initial sepsis screen is negative. Risk Assessment: Do you want to hurt yourself or someone else? Patient reports no desire to harm self or others. Onset of symptoms was December 28, 2023 at 02:00. Transition of care: patient was not received from another setting of care. 10:01 Method Of Arrival: Wheelchair ap3 10:01 Acuity: JESSE 3 ap3 Triage Assessment: 10:04 General: Appears uncomfortable, ill, Behavior is calm, cooperative, appropriate for ap3 age. Pain: Complains of pain in abdomen Also complains of nausea. Neuro: Level of Consciousness is awake, alert, obeys commands, Oriented to person, place, time, situation. Cardiovascular: Patient's skin is warm and dry. Respiratory: Airway is patent Respiratory effort is even, unlabored, Respiratory pattern is regular, symmetrical. GI: Reports lower abdominal pain, upper abdominal pain, nausea, vomiting. Historical: - Allergies: 10:03 Aspirin; ap3 - PMHx: 10:03 Atrial fibrillation; Hypertensive disorder; "leaky heart valve"; ap3 - PSHx: 10:03 hernia repair; Cholecystectomy; ap3 - Immunization history:: Adult Immunizations up to date. - Infectious Disease History:: Denies. - Social history:: Smoking status: Patient denies any tobacco usage or history of. - Family history:: not pertinent. Screenin:05 [facility] ED Fall Risk Assessment (Adult) History of falling in the last 3 months, ap3 including since admission No falls in past 3 months (0 pts) Confusion or Disorientation No (0 pts) Intoxicated or Sedated No (0 pts) Impaired Gait No (0 pts) Mobility Assist Device Used No (0 pt) Altered Elimination No (0 pt) Score/Fall Risk Level 0 - 2 = Low Risk Oriented to surroundings, Maintained a safe environment, Educated pt \\T\\ family on fall prevention, incl call for assistance when getting out of bed, Assessed \\T\\ reinforced patient's understanding of fall precautions, Hourly rounding (assess needs \\T\\ fall precautionary measures) done, Used ambulatory aids as needed (educated on \\T\\ assisted with), Used gait belt as appropriate. Abuse screen: Denies threats or abuse. Nutritional screening: No deficits noted. Tuberculosis screening: No symptoms or risk factors identified. Assessment: 09:47 General: Appears in no apparent distress. uncomfortable, Behavior is calm, cooperative. rs5 Pain: Complains of pain in abdomen Pain currently is 2 out of 10 on a pain scale. Quality of pain is described as aching. Neuro: Level of Consciousness is awake, alert, obeys commands, Oriented to person, place, time, situation. Cardiovascular: Patient's skin is warm and dry. Respiratory: Airway is patent Respiratory effort is even, unlabored, Respiratory pattern is regular, symmetrical. GI: Abdomen is round non-distended, Abd is soft and non tender X 4 quads. Reports nausea. : No signs and/or symptoms were reported regarding the genitourinary system. EENT: No signs and/or symptoms were reported regarding the EENT system. Derm: Skin is intact, Skin is pink, warm \\T\\ dry. Musculoskeletal: Range of motion: intact in all extremities, Reports generalized weakness. 11:19 Reassessment: Patient and/or family updated on plan of care and expected duration. Pain rs5 level reassessed. Patient is alert, oriented x 3, equal unlabored respirations, skin warm/dry/pink. 12:00 Reassessment: Patient and/or family updated on plan of care and expected duration. Pain rs5 level reassessed. Patient is alert, oriented x 3, equal unlabored respirations, skin warm/dry/pink. Vital Signs: 10:01 BP 116 / 69; Pulse 74; Resp 17; Temp 97.4; Pulse Ox 97% on R/A; Weight 53.52 kg; Height ap3 5 ft. 6 in. ; 11:19 BP 115 / 72; Pulse 70; Resp 16; Pulse Ox 98% on R/A; rs5 12:00 BP 117 / 74; Pulse 74; Resp 17; Pulse Ox 99% on R/A; rs5 10:01 Body Mass Index 19.05 (53.52 kg, 167.64 cm) ap3 ED Course: 09:35 Patient arrived in ED. mg5 09:37 Pedro Kaplan MD is Attending Physician. rt 10:03 Triage completed. ap3 10:04 Ruperto Martell, RN is Primary Nurse. rs5 10:05 Arm band placed on right wrist. ap3 10:05 Patient has correct armband on for positive identification. Placed in gown. Bed in low rs5 position. Call light in reach. Side rails up X2. 11:09 CT Abd/Pelvis - IV Contrast Only In Process Unspecified. EDMS 11:19 No provider procedures requiring assistance completed. rs5 12:07 Provided Education on: discharge instructions . rs5 12:08 IV discontinued, intact, bleeding controlled, No redness/swelling at site. Pressure rs5 dressing applied. Administered Medications: 10:27 Drug: Ondansetron IVP 4 mg IVP once; over 2 minutes Route: IVP; Site: right forearm; rs5 11:01 Follow up: Response: No adverse reaction; Nausea is decreased rs5 10:27 Drug: NS 0.9% IV 1000 ml IV at 1 bolus Per protocol; to be given as a bolus over 60 rs5 minutes Route: IV; Rate: 1 bolus; Site: right forearm; 11:33 Follow up: IV Status: Completed infusion; IV Intake: 1000ml rs5 Medication: 11:19 VIS not applicable for this client. rs5 Intake: 11:33 IV: 1000ml; Total: 1000ml. rs5 Outcome: 11:51 Discharge ordered by . rt 12:08 Patient left the ED. rs5 12:08 Discharged to home ambulatory, rs5 12:08 Condition: stable rs5 12:08 Discharge instructions given to patient, family, Instructed on discharge instructions, follow up and referral plans. Demonstrated understanding of instructions, follow-up care, Signatures: Dispatcher [employer] EDMS Bernstein Kindra, RN RN ap3 Pedro Kaplan MD MD rt Ruperto Martell, RAYMUNDO RN rs5 Madelyn De Jesus 5
[2023-12-28 12:13] VITALS: TEMP 97.4
[2023-12-28 12:15] VITALS: BP 115/72; O2SAT 98
--- NOTE | 2024-01-03 12:19 | EKG ---
Test Date: 2023-12-28 Test Time: 10:19:44 [employer] Operator: RADHA MEASUREMENT RESULTS: Intervals: Rate: 65 TX: 172 QRSD: 74 QT: 446 QTc: 463 [place]: P: 75 TX: 172 QRS: 79 T: 68 INTERPRETIVE STATEMENTS: Normal sinus rhythm Low voltage QRS Borderline ECG Compared to ECG 01/07/2023 13:46:42 Sinus tachycardia no longer present Atrial premature complex(es) no longer present Right-axis deviation no longer present T-wave abnormality no longer present Possible ischemia no longer present Electronically Signed On 01-03-24 12:01:53 CDT by Ángel Patton
== END 2023-12-28 12:08 | disposition home or self-care (01) ==
LOC: ER 09:30
DX: R11.2 Nausea with vomiting, unspecified (principal); K57.30 Diverticulosis of large intestine without perforation or abscess without bleeding; I10 Essential (primary) hypertension; I48.91 Unspecified atrial fibrillation
CPT/HCPCS: 93005; 85025; 81001; 36415; 84484; 83690; 80053; 74177; Q9967; J2405; J7030; 96361; 96374; 99284